=== PATIENT | female | born 1940 | race Caucasian/White ===

== ENCOUNTER → 2017-06-05 | Outpatient (CLI) | payer OTHER ==
--- NOTE | 2017-06-05 10:45 | DIAGNOSTIC IMAGING REPORT ---
L WRIST MIN 3 VIEWS ROUTINE, L HAND MIN 3 VIEWS HISTORY: 76 years-old Female LEFT HAND WRIST PAIN acute left hand and wrist pain without reported trauma COMPARISON: None available TECHNIQUE: 3 views of the left wrist and 3 views of the left hand FINDINGS: WRIST: Bones are osteopenic. Chondrocalcinosis is noted about the radiocarpal joint and also within the distribution of the TFCC. There is 3 mm negative ulnar variance. Subcortical cystic changes are noted throughout the proximal and distal carpal rows. Advanced triscaphe and first carpometacarpal osteoarthritis is noted. No acute fracture or dislocation identified. No definite erosive arthropathy. HAND: Prominent subcortical cystic changes are noted about the carpus. The bones are moderately demineralized. There is chondrocalcinosis about the carpus. Advanced triscaphe and first carpal metacarpal arthritis. Moderate interphalangeal osteoarthritis is also noted. No erosive arthropathy identified. Increased sclerosis of the distal phalanx third digit involving the medial tuft which is nonspecific. No acute fracture or dislocation. IMPRESSION: 1. No acute fracture or dislocation identified involving the left hand or wrist. 2. Advanced degenerative changes as above with multifocal subcortical cystic changes and chondrocalcinosis. No erosive arthropathy identified. CPPD arthropathy may be considered within the appropriate clinical setting. The above report was generated using voice recognition software. It may contain grammatical, syntax or spelling errors. Electronically signed by: Angel Blanchard M.D. 06/05/2017 10:43 AM Dictated Date/Time: 06/05/2017 10:38 AM
== END | disposition home or self-care (01) ==
LOC: C.RDSM 10:13
PROVIDERS: ATTEND Physician Assistant
DX: M25.532 Pain in left wrist (principal); M79.642 Pain in left hand

== ENCOUNTER → 2017-06-13 | Outpatient (CLI) | payer OTHER ==
--- NOTE | 2017-06-13 13:55 | DIAGNOSTIC IMAGING REPORT ---
L WRIST MIN 3 VIEWS ROUTINE HISTORY: 76 years-old Female F/U LEFT WRIST FX acute left wrist pain. COMPARISON: Left hand and wrist radiographs 06/05/2017 TECHNIQUE: 3 views of the left wrist FINDINGS: Bones are moderately demineralized. Chondrocalcinosis is noted about the radiocarpal joint and also within the distribution of the TFCC. There is 3 mm negative ulnar variance. Subcortical cystic changes are noted throughout the proximal and distal carpal rows. Advanced triscaphe and first carpometacarpal osteoarthritis is noted. No acute fracture or dislocation identified. No definite erosive arthropathy. Soft tissues are unremarkable. IMPRESSION: 1. No acute osseous abnormality. 2. Osteopenia with chondrocalcinosis and multifocal degenerative changes as above. The above report was generated using voice recognition software. It may contain grammatical, syntax or spelling errors. Electronically signed by: Angel Blanchard M.D. 06/13/2017 1:53 PM Dictated Date/Time: 06/13/2017 1:51 PM
== END | disposition home or self-care (01) ==
LOC: C.RDSM 14:00
PROVIDERS: ATTEND Physician Assistant
DX: Z09 Encounter for follow-up examination after completed treatment for conditions other than malignant neoplasm (principal); M85.832 Other specified disorders of bone density and structure, left forearm; M11.13 Familial chondrocalcinosis, wrist; Z87.81 Personal history of (healed) traumatic fracture

== ENCOUNTER → 2017-08-28 | Outpatient (CLI) | payer OTHER ==
[2017-08-28 10:55] LABS: BASO ABS # 0.08 K/uL (0-0.2); COMPLETE YES; EOS % 5.7 %; HEMATOCRIT 41.2 % (37-47); IG% 0.3 %; LYMPH % 29.9 %; LYMPH ABS # 2.35 K/uL (1.2-3.4); MEAN CELL VOLUME 90.9 fL (80-100); MEAN PLATELET VOLUME 9.4 fL (7.4-10.4); NEUT % 53.1 %; PLATELET COUNT 311 K/uL (130-400); RED BLOOD COUNT 4.53 M/uL (4.2-5.4); WHITE BLOOD COUNT 7.87 K/uL (4.8-10.8)
[2017-08-28 11:22] LABS: BLOOD UREA NITROGEN 23 mg/dl (7-18); BUN/CREATININE RATIO 27.9 (10-20); CALCIUM 9.3 mg/dl (8.5-10.1); CARBON DIOXIDE 30 mmol/L (21-32); CHLORIDE 102 mmol/L (98-107); CREATININE 0.82 mg/dl (0.60-1.20); GLUCOSE 123 mg/dl (70-99); POTASSIUM 4.1 mmol/L (3.5-5.1); SODIUM 137 mmol/L (136-145)
[2017-08-28 11:34] LABS: ALKALINE PHOSPHATASE 46 U/L (45-117); ALT/SGPT 20 U/L (12-78); AST/SGOT 13 U/L (15-37); CHOLESTEROL 128 mg/dl (0-200); HDL CHOLESTEROL 42 mg/dl; LDL CHOLESTEROL CALCULATED 46 mg/dl; TRIGLYCERIDES 200 mg/dl (0-150); VERY LOW DENSITY LIPOPROT CALC 40 mg/dl
[2017-08-29 08:28] LABS: ESTIMATED AVERAGE GLUCOSE 154 mg/dl; HA1C FLAG Normal (Normal)
== END | disposition home or self-care (01) ==
LOC: C.LAB1850 09:11
PROVIDERS: ATTEND Nurse Practitioner Adult Health
DX: E11.9 Type 2 diabetes mellitus without complications (principal); E78.5 Hyperlipidemia, unspecified; Z51.81 Encounter for therapeutic drug level monitoring; Z79.899 Other long term (current) drug therapy; R53.83 Other fatigue; M81.0 Age-related osteoporosis without current pathological fracture

== ENCOUNTER → 2017-10-06 | Outpatient (CLI) | payer OTHER ==
[~2017-10-06] MED LIST: ASPI81TA28 PO; CHOL1000 PO; CLR10 PO; CRS/10 PO; DIVA250T PO; FLUT0.15 INH; LATA0.5S OPB; LEVO88TA3 PO; MELA1TAB5 PO; METF1000 PO; MULT-506 PO; VENL75TA4 PO
--- NOTE | 2017-10-06 13:05 | DIAGNOSTIC IMAGING REPORT ---
THYROID ULTRASOUND HISTORY: E05.90 Hyperthyroidism Please schedule in September [id number] COMPARISON: None. FINDINGS: Right lobe: 3.3 x 0.9 x 0.9 cm. A few tiny cysts/nodules measuring up to 2 mm. Left lobe: 3.1 x 1.0 x 0.9 cm. A few tiny cysts/nodules measuring up to 2 mm. Isthmus: 2 mm in thickness. No nodules. IMPRESSION: A few tiny subcentimeter cysts/nodules. Otherwise, normal thyroid gland. Electronically signed by: Cristi Zhang M.D. 10/06/2017 1:04 PM Dictated Date/Time: 10/06/2017 1:02 PM
== END | disposition home or self-care (01) ==
LOC: C.ULTR 11:36
PROVIDERS: ATTEND Nurse Practitioner Adult Health
DX: E05.00 Thyrotoxicosis with diffuse goiter without thyrotoxic crisis or storm (principal)

== ENCOUNTER → 2017-10-06 | Outpatient (CLI) | payer OTHER | END | disposition home or self-care (01) | LOC: C.MAMM 13:55 | PROVIDERS: ATTEND Nurse Practitioner Adult Health | DX: M81.0 Age-related osteoporosis without current pathological fracture (principal) ==

== ENCOUNTER → 2017-10-14 | Day surgery (SDC) | payer OTHER ==
[2017-09-22 15:15] VITALS: Ht 160 cm; Wt 72.7 kg
[~2017-10-14] VITALS: Ht 160 cm; Wt 72.7 kg
[~2017-10-14] MED LIST changes: +500ML BSS 0.3ML EPI 1:1000PF IRRIG ONE; +AMVISC PLUS 0.8ML SYRINGE INT OCU ONE; +ATROPINE SULFATE 0.1 MG/ML 5ML SYR IV PRN; +BSS FLUSH ONE; +EpHEDrine SULFATE INJ 50 MG/ML AMP IV PRN; +EpINEphrine INJ 1MG/ML AMP 1 MG/ML AMP ONE; +LACTATED RINGER'S 1000ML 500 ML IV SCH; +LIDOCAINE 3.5% OPH GEL PER APPLICATION CHARGE ONE; +LIDOCAINE HCL 1% MPF 2 ML VIAL ONE; +MIDAZOLAM HCL 1 MG/ML 2ML VIAL ONE; +OCUCOAT 1 ML SOLN IO ONE; +POVIDONE-IODINE OP SOLN 30 ML BTL ONE; +PROPARACAINE 0.5% OP SOLN PER DROP CHARGE OPR SCH; +TOBRAMYCIN/DEXAMETHASONE OPH OINT PER APPLN CHARGE ONE
[2017-10-14] MEDS: PHENYLEPHRINE HCL 2.5% OP SOLN PER DROP CHARGE OPR SCH ×2 (06:42→06:47)
[2017-10-14] MEDS: TROPICAMIDE 1% OP SOLN PER DROP CHARGE OPR SCH ×2 (06:43→06:48)
[2017-10-14] MEDS: CYCLOPENTOLATE HCL 1% OP SOLN PER DROP CHARGE OPR SCH ×2 (06:44→06:49)
[2017-10-14] MEDS: KETOROLAC 0.5% OP SOLN PER DROP CHARGE OPR SCH ×2 (06:45→06:50)
[2017-10-14] MEDS: GATIFLOXACIN OP SOLN PER DROP CHARGE OPR SCH ×2 (06:46→06:56)
--- NOTE | 2017-10-14 06:59 | History & Physical Bridge - SC ---
H&P Re-Evaluation Bridge Note: I have examined the patient, reviewed the History & Physical and in the interval since the performance of the History & Physical I have noted the following changes of clinical significance: Diagnosis: Right Cataract Procedure: Right Cataract Removal with Lens Implant No changes noted
--- NOTE | 2017-10-14 07:22 | [facility] Operative Report ---
Operative Report Date of Service Oct 14, 2017. Operative Report 1. PREOPERATIVE DIAGNOSIS: Cataract of the right eye. 2. POSTOPERATIVE DIAGNOSIS: Same. 3. PROCEDURE: Phacoemulsification with intraocular lens implantation of the right eye. SURGEON: Dr. Sanford Kuo. ANESTHESIA: Topical Lidocaine gel, 1% Non- Preserved intracameral Lidocaine, and monitored intravenous sedation. INDICATIONS FOR THE PROCEDURE: The patient is a 77 - year-old female with a history of cataract of the right eye causing significant visual impairment. The details of the proposed procedure were explained to the patient who asked appropriate questions and following discussion of all risks, benefits and alternatives agreed to have the procedure done. 4. OPERATION AND FINDINGS: DESCRIPTION OF PROCEDURE: After informed consent was obtained, the patient was brought to the Operating Room at the [facility]. The patient was placed in a supine position and then the right eye was prepped and draped in the usual sterile fashion for intraocular surgery. A drop of topical Lidocaine gel was placed in the operative eye. A wire lid speculum was then placed in the fornices. A corneal paracentesis was then created temporally. The Non-Preserved Lidocaine was then instilled into the anterior chamber. The anterior chamber was then pressurized with viscoelastic. A 2.0 mm clear corneal incision was then created temporally. A cystotome was inserted into the anterior chamber and used to create a tear in the anterior lens capsule. This capsular tear was then used to create a small flap and the flap was dragged in a counterclockwise direction in order to create a continuous curvilinear capsulorrhexis. Hydrodissection was accomplished with balanced salt solution. Phacoemulsification of the lens nucleus was then performed in a standard [id number] technique. The phaco time was 31 seconds with an average power of 10%. The remaining cortical material was removed using irrigation aspiration. The capsular bag was then filled with viscoelastic. A [employer]ch [employer] Lomb MI60L +20.0 diopters lens was then loaded into the injector and injected into the capsular bag. The remaining viscoelastic was removed with the irrigation aspiration handpiece. The wound was hydrated and then checked and found to be watertight. The intraocular pressure was checked and found to be adequate. The wire lid speculum was removed and the patient's face was cleaned and dried. TobraDex ointment was placed in the inferior fornix. The patient was discharged to the Recovery Room having tolerated the procedure well. There were no complications. The patient will be seen tomorrow in the office for follow-up. I attest to the content of the Intraoperative Record and any orders documented therein. Any exceptions are noted below.
--- NOTE | 2017-10-14 07:23 | Discharge Instructions-SurgCtr ---
Discharge Instructions Date of Service Oct 14, 2017. Visit Reason for Visit: Cataract Right Eye Discharge Discharge Diagnosis / Problem: cataract Discharge Goals Goal(s): Improve function Medications Stopped Medications Name(s): metformin yesterday Activity Recommendations Activity Limitations: per Instructions/Follow-up section Anesthesia . Post Anesthesia Instructions: If you have had General Anesthesia or IV Sedation: * Do not drive today. * Resume driving when surgeon permits. * Do not make important decisions or sign legal documents today. * Call surgeon for: 1. Temperature elevations greater than 101 degrees F. 2. Uncontrollable pain. 3. Excessive bleeding. 4. Persistent nausea and vomiting. 5. Medication intolerance (nausea, vomiting or rash). * For nausea and vomiting use only clear liquids such as: tea, soda, bouillon until nausea subsides, then gradually increase diet as tolerated. * If you have any concerns or questions, call your surgeon's office. If physician is unavailable and it is an emergency, call 911 or go to the nearest emergency room. . Diet Recommendations Home Diet: resume previous diet Procedures Procedures Performed: Right Cataract Phacoemulsification With Intraocular Lens Implant Pending Studies Studies pending at discharge: no Medical Emergencies . Who to Call and When: Medical Emergencies: If at any time you feel your situation is an emergency, please call 911 immediately. . Non-Emergent Contact Non-Emergency issues call your: [employer] Tester . . "Provider Documentation" section prepared by Sanford Kuo. .
[2017-10-14 07:24] VITALS: TEMP 36.6
--- NOTE | 2017-10-14 07:50 | Anesthesia Progress Nt - [facility] ---
Anesthesia Post Op Note Date & Time Oct 14, 2017 at 07:50 Vital Signs Pain Intensity: 0 Vital Signs Past 12 Hours Date Time Temp Pulse Resp B/P (MAP) Pulse Ox O2 Delivery O2 Flow Rate FiO2 10/14/17 07:24 36.6 66 16 138/80 (99) 96 Room Air 10/14/17 06:30 36.2 65 22 107/74 (85) 96 Room Air Notes Mental Status: alert / awake / arousable, participated in evaluation Pt Amnestic to Procedure: Yes Nausea / Vomiting: adequately controlled Pain: adequately controlled Airway Patency, RR, SpO2: stable & adequate BP & HR: stable & adequate Hydration State: stable & adequate Anesthetic Complications: no major complications apparent
[2017-10-14 07:57] VITALS: BP 149/83; PULSE 66; O2SAT 97
== END | disposition home or self-care (01) ==
LOC: X.SURG 06:16
PROVIDERS: ATTEND Ophthalmology
DX: H26.9 Unspecified cataract (principal); E11.9 Type 2 diabetes mellitus without complications; E78.5 Hyperlipidemia, unspecified; E03.9 Hypothyroidism, unspecified; M19.90 Unspecified osteoarthritis, unspecified site; Z96.643 Presence of artificial hip joint, bilateral; Z96.611 Presence of right artificial shoulder joint; Z90.710 Acquired absence of both cervix and uterus; Z90.89 Acquired absence of other organs; Z90.49 Acquired absence of other specified parts of digestive tract; Z79.82 Long term (current) use of aspirin; Z87.891 Personal history of nicotine dependence; Z88.2 Allergy status to sulfonamides; Z88.0 Allergy status to penicillin; Z88.6 Allergy status to analgesic agent; Z88.8 Allergy status to other drugs, medicaments and biological substances

== ENCOUNTER → 2017-10-28 | Day surgery (SDC) | payer OTHER ==
[2017-10-21 08:37] VITALS: Ht 160 cm; Wt 72.7 kg
[~2017-10-28] VITALS: Ht 160 cm; Wt 72.7 kg
[~2017-10-28] MED LIST changes: +EXEN1INJ3 SC; +PROPARACAINE 0.5% OP SOLN PER DROP CHARGE OPL SCH; -PROPARACAINE 0.5% OP SOLN PER DROP CHARGE OPR SCH
[2017-10-28] MEDS: PHENYLEPHRINE HCL 2.5% OP SOLN PER DROP CHARGE OPL SCH ×2 (06:36→06:41)
[2017-10-28] MEDS: TROPICAMIDE 1% OP SOLN PER DROP CHARGE OPL SCH ×2 (06:37→06:42)
[2017-10-28] MEDS: CYCLOPENTOLATE HCL 1% OP SOLN PER DROP CHARGE OPL SCH ×2 (06:38→06:43)
[2017-10-28] MEDS: KETOROLAC 0.5% OP SOLN PER DROP CHARGE OPL SCH ×2 (06:39→06:44)
[2017-10-28] MEDS: GATIFLOXACIN OP SOLN PER DROP CHARGE OPL SCH ×2 (06:40→06:50)
--- NOTE | 2017-10-28 06:57 | History & Physical Bridge - SC ---
H&P Re-Evaluation Bridge Note: I have examined the patient, reviewed the History & Physical and in the interval since the performance of the History & Physical I have noted the following changes of clinical significance: Diagnosis: Left Cataract Procedure: Left Cataract Removal with Lens Implant No changes noted
--- NOTE | 2017-10-28 07:38 | [facility] Operative Report ---
Operative Report Date of Service Oct 28, 2017. Operative Report 1. PREOPERATIVE DIAGNOSIS: Cataract of the left eye. 2. POSTOPERATIVE DIAGNOSIS: Same. 3. PROCEDURE: Phacoemulsification with intraocular lens implantation of the left eye. SURGEON: Dr. Sanford Kuo. ANESTHESIA: Topical Lidocaine gel, 1% Non- Preserved intracameral Lidocaine, and monitored intravenous sedation. INDICATIONS FOR THE PROCEDURE: The patient is a 77 - year-old female with a history of cataract of the left eye causing significant visual impairment. The details of the proposed procedure were explained to the patient who asked appropriate questions and following discussion of all risks, benefits and alternatives agreed to have the procedure done. 4. OPERATION AND FINDINGS: DESCRIPTION OF PROCEDURE: After informed consent was obtained, the patient was brought to the Operating Room at the [facility]. The patient was placed in a supine position and then the left eye was prepped and draped in the usual sterile fashion for intraocular surgery. A drop of topical Lidocaine gel was placed in the operative eye. A wire lid speculum was then placed in the fornices. A corneal paracentesis was then created temporally. The Non-Preserved Lidocaine was then instilled into the anterior chamber. The anterior chamber was then pressurized with viscoelastic. A 2.0 mm clear corneal incision was then created temporally. A cystotome was inserted into the anterior chamber and used to create a tear in the anterior lens capsule. This capsular tear was then used to create a small flap and the flap was dragged in a counterclockwise direction in order to create a continuous curvilinear capsulorrhexis. Hydrodissection was accomplished with balanced salt solution. Phacoemulsification of the lens nucleus was then performed in a standard ddkxtr-[id number]-whmbhrp technique. The phaco time was 11 seconds with an average power of 18 %. The remaining cortical material was removed using irrigation aspiration. The capsular bag was then filled with viscoelastic. A Bausch [employer] Lomb MI60L +20.0 diopters lens was then loaded into the injector and injected into the capsular bag. The remaining viscoelastic was removed with the irrigation aspiration handpiece. The wound was hydrated and then checked and found to be watertight. The intraocular pressure was checked and found to be adequate. The wire lid speculum was removed and the patient's face was cleaned and dried. TobraDex ointment was placed in the inferior fornix. The patient was discharged to the Recovery Room having tolerated the procedure well. There were no complications. The patient will be seen tomorrow in the office for follow-up. I attest to the content of the Intraoperative Record and any orders documented therein. Any exceptions are noted below.
--- NOTE | 2017-10-28 07:39 | Discharge Instructions-SurgCtr ---
Discharge Instructions Date of Service Oct 28, 2017. Visit Reason for Visit: Left Cataract Discharge Discharge Diagnosis / Problem: cataract Discharge Goals Goal(s): Improve function Medications Stopped Medications Name(s): Aspirin stopped 10-26-17 and metformin half dose taken 10-27-17 Activity Recommendations Activity Limitations: per Instructions/Follow-up section Anesthesia . Post Anesthesia Instructions: If you have had General Anesthesia or IV Sedation: * Do not drive today. * Resume driving when surgeon permits. * Do not make important decisions or sign legal documents today. * Call surgeon for: 1. Temperature elevations greater than 101 degrees F. 2. Uncontrollable pain. 3. Excessive bleeding. 4. Persistent nausea and vomiting. 5. Medication intolerance (nausea, vomiting or rash). * For nausea and vomiting use only clear liquids such as: tea, soda, bouillon until nausea subsides, then gradually increase diet as tolerated. * If you have any concerns or questions, call your surgeon's office. If physician is unavailable and it is an emergency, call 911 or go to the nearest emergency room. . Diet Recommendations Home Diet: resume previous diet Procedures Procedures Performed: Left Cataract Phacoemulsification With Intraocular Lens Implant Pending Studies Studies pending at discharge: no Medical Emergencies . Who to Call and When: Medical Emergencies: If at any time you feel your situation is an emergency, please call 911 immediately. . Non-Emergent Contact Non-Emergency issues call your: [employer] Consultant . . "Provider Documentation" section prepared by Sanford Kuo. .
[2017-10-28 08:13] VITALS: BP 164/88; PULSE 71; TEMP 36.4; O2SAT 99
--- NOTE | 2017-10-28 08:27 | Anesthesia Progress Nt - [facility] ---
Anesthesia Post Op Note Date & Time Oct 28, 2017 at 08:27 Vital Signs Pain Intensity: 0 Vital Signs Past 12 Hours Date Time Temp Pulse Resp B/P (MAP) Pulse Ox O2 Delivery O2 Flow Rate FiO2 10/28/17 08:13 36.4 71 16 164/88 (113) 99 Room Air 10/28/17 07:41 36.1 67 16 156/84 (108) 96 Room Air 10/28/17 06:32 36.6 69 16 130/70 (90) 97 Room Air Notes Mental Status: alert / awake / arousable, participated in evaluation Pt Amnestic to Procedure: Yes Nausea / Vomiting: adequately controlled Pain: adequately controlled Airway Patency, RR, SpO2: stable & adequate BP & HR: stable & adequate Hydration State: stable & adequate Anesthetic Complications: no major complications apparent
== END | disposition home or self-care (01) ==
LOC: X.SURG 06:15
PROVIDERS: ATTEND Ophthalmology
DX: H26.9 Unspecified cataract (principal); Z88.8 Allergy status to other drugs, medicaments and biological substances; Z88.0 Allergy status to penicillin; Z88.2 Allergy status to sulfonamides; Z88.6 Allergy status to analgesic agent

== ENCOUNTER → 2017-11-11 | Outpatient (CLI) | payer OTHER ==
[~2017-11-11] MED LIST changes: -500ML BSS 0.3ML EPI 1:1000PF IRRIG ONE; -AMVISC PLUS 0.8ML SYRINGE INT OCU ONE; -ATROPINE SULFATE 0.1 MG/ML 5ML SYR IV PRN; -BSS FLUSH ONE; -EpHEDrine SULFATE INJ 50 MG/ML AMP IV PRN; -EpINEphrine INJ 1MG/ML AMP 1 MG/ML AMP ONE; -LACTATED RINGER'S 1000ML 500 ML IV SCH; -LIDOCAINE 3.5% OPH GEL PER APPLICATION CHARGE ONE; -LIDOCAINE HCL 1% MPF 2 ML VIAL ONE; -MIDAZOLAM HCL 1 MG/ML 2ML VIAL ONE; -OCUCOAT 1 ML SOLN IO ONE; -POVIDONE-IODINE OP SOLN 30 ML BTL ONE; -PROPARACAINE 0.5% OP SOLN PER DROP CHARGE OPL SCH; -TOBRAMYCIN/DEXAMETHASONE OPH OINT PER APPLN CHARGE ONE
--- NOTE | 2017-11-11 08:31 | DIAGNOSTIC IMAGING REPORT ---
LEFT KNEE INCLUDING BILATERAL STANDING AP VIEWS (4 VIEWS) CLINICAL HISTORY: LEFT KNEE PAIN COMPARISON: None. DISCUSSION: The bilateral standing AP views reveal right-sided chondrocalcinosis and moderate right-sided medial joint compartment narrowing. Mild left-sided medial joint compartment narrowing. There are advanced degenerative changes within the patellofemoral joint. There is mild lateral patellar translation and marked narrowing of the lateral patellofemoral joint compartment. No acute fractures are visualized. IMPRESSION: 1. No acute fractures 2. Advanced degenerative changes within the patellofemoral joint. Electronically signed by: Daniel Abebe M.D. 11/11/2017 8:30 AM Dictated Date/Time: 11/11/2017 8:28 AM
== END | disposition home or self-care (01) ==
LOC: C.RDSM 09:04
PROVIDERS: ATTEND Physician Assistant
DX: M25.562 Pain in left knee (principal)

== ENCOUNTER → 2017-12-01 | Outpatient (CLI) | payer OTHER ==
[2017-12-01 17:00] LABS: CREATININE RANDOM URINE 94.3 mg/dl
[2017-12-02 06:36] LABS: HEMOGLOBIN A1C 8.6 % (4.5-5.6)
== END | disposition home or self-care (01) ==
LOC: C.LAB1850 15:38
PROVIDERS: ATTEND Nurse Practitioner Family
DX: E11.9 Type 2 diabetes mellitus without complications (principal)

== ENCOUNTER → 2018-03-26 | Outpatient (CLI) | payer OTHER ==
[~2018-03-26] MED LIST changes: +ACET650T49 PO; +DIVA-36 PO; -DIVA250T PO; +INSDGIPEN SQ; +RXC5 PO; +TRAM-10 PO; +VENL75CA94 PO; -VENL75TA4 PO; +WARF2TAB PO
[2018-03-26 14:48] LABS: INR 1.3 (0.9-1.1)
== END | disposition home or self-care (01) ==
LOC: C.LAB1850 13:19
PROVIDERS: ATTEND Nurse Practitioner Adult Health
DX: Z96.659 Presence of unspecified artificial knee joint (principal)

== ENCOUNTER → 2018-04-20 | Outpatient (CLI) | payer OTHER ==
[~2018-04-20] MED LIST changes: +VENL75CA88 PO; -VENL75CA94 PO
== END | disposition home or self-care (01) ==
LOC: C.RDSM 14:30
PROVIDERS: ATTEND Physical Medicine & Rehabilitation Sports Medicine
DX: M17.12 Unilateral primary osteoarthritis, left knee (principal)

== ENCOUNTER 2019-11-02 11:37 | Observation (INO) ==
--- NOTE | 2019-11-02 12:21 | XRay Report ---
XR chest 1V portable CLINICAL HISTORY: Dyspnea dyspnea COMPARISON STUDY: No previous studies for comparison. FINDINGS: The bones soft tissues and hemidiaphragms are normal. The cardiomediastinal silhouette is n ormal. The lungs are clear. The pulmonary vasculature is normal. Right shoulder arthroplasty in good position. Significant degenerative change left shoulder. IMPRESSION: No acute process. ACT 112: Negative or not required by law. The above report was generated using voice recognition software. It may contain grammatical, syntax or spelling errors. Electronically signed by: Randy Brown M.D. 11/02/2019 12:20 PM
[2019-11-02 12:35] LABS: Basophils # (auto) 0.09 K/uL (0-0.2); Basophils % (auto) 0.7 %; Eosinophils # (auto) 0.71 K/uL (0-0.5); Eosinophils % (auto) 5.4 %; Hematocrit (blood only) 36.7 % (37-47); Hemoglobin 12.3 g/dL (12.0-16.0); Immature Granulocytes # (auto) 0.03 K/uL (0.00-0.02); Immature Granulocytes % (auto) 0.2 %; Lymphocytes # (auto) 2.78 K/uL (1.2-3.4); Lymphocytes % (auto) 21.2 %; Mean Corpuscular Hemoglobin 30.1 pg (25-34); Mean Corpuscular Hgb Conc 33.5 g/dL (32-36); Mean Platelet Volume 8.9 fL (7.4-10.4); Monocytes # (auto) 0.84 K/uL (0.11-0.59); Monocytes % (auto) 6.4 %; Neutrophils # (auto) 8.69 K/uL (1.4-6.5); Neutrophils % (auto) 66.1 %; Platelet Count 325 K/uL (130-400); RDW Coefficient of Variation 14.8 % (11.5-14.5); RDW Standard Deviation 48.4 fL (36.4-46.3); Red Blood Count 4.08 M/uL (4.2-5.4); White Blood Count 13.14 K/uL (4.8-10.8)
[2019-11-02 12:45] LABS: Partial Thromboplastin Ratio 0.9; Partial Thromboplastin Time 23.6 Seconds (21.0-31.0); Prothrombin Time 9.9 Seconds (9.0-12.0)
[2019-11-02 12:58] LABS: Alanine Aminotransferase 27 U/L (12-78); Albumin Level 3.5 gm/dl (3.4-5.0); Aspartate Aminotransferase 16 U/L (15-37); BUN Creatinine Ratio 27.3 (10-20); Blood Urea Nitrogen 59 mg/dl (7-18); Carbon Dioxide 27 mmol/L (21-32); Chloride 106 mmol/L (98-107); Creatinine Clr Calc Pharmacy 22.1 ml/min; Est GFR (African American) 24.8; Est GFR (Non-African American) 21.4; Glucose 125 mg/dl (70-99); Sodium 137 mmol/L (136-145)
[2019-11-02 13:03] LABS: Albumin Globulin Ratio 0.9 (0.9-2); Alkaline Phosphatase 64 U/L (45-117); Bilirubin,Total 0.3 mg/dl (0.2-1); Globulin 3.9 gm/dl (2.5-4.0); NT Pro B Type Natriuretic Pept 134 pg/ml (0-1800); Total Protein 7.4 gm/dl (6.4-8.2); Troponin I < 0.015 ng/ml (0-0.045)
[2019-11-02 13:47] LABS: Appearance Urine Clear (Clear); Bilirubin Urine Negative (Negative); Blood Urine Negative (Negative); Color Urine Yellow; Glucose Urine UA Negative (Negative); Ketones Urine Negative (Negative); Leukocyte Esterase Urine Negative (Negative); Nitrite Urine Negative (Negative); Protein Urine Negative (Negative); Specific Gravity Urine 1.012 (1.000-1.030); Urobilinogen Urine Negative (Negative)
--- NOTE | 2019-11-02 13:55 | Emergency Department Note ---
Entered by Earnest Hager acting as a scribe for Robin Scott DO History of Present Illness General Chief complaint: Shortness of Breath/Dyspnea Stated complaint: EXTREME SOB,CHEST PAIN Time Seen by Provider: 11/02/19 11:50 Source: patient History of Present Illness Onset (ago): day(s) (4-5 days ago) Location: chest Pain Consistency: + other (worsening) Maximum Pain Intensity: 0 Quality: + other (SOB) Associated symptoms: + other (Positive for congestion, a dry cough, leg swelligng, and back pain. Negative for CP.) The patient is a 79 year old female who presents to the emergency department with complaints of worsening SOB beginning 4-5 days ago. The patient states that she was told three weeks ago that she had stage 3 renal failure. She notes that she has been having worsening SOB for the last 4-5 days. She reports that she went to the [facility] today but was referred to the emergency department for her worsening SOB and possible CHF. She also complains of congestion, a dry cough, leg swelling, and back pain. The patient states that she is anxious. She denies any CP. She notes that she has a history of diabetes. Home Medications Home Medications Medication Instructions Recorded Confirmed Type acetaminophen [Tylenol Arthritis 650 mg PO Q12H PRN 12/21/18 11/02/19 History Pain] aspirin [Aspir-81] 81 mg PO QAM 12/21/18 11/02/19 History multivitamin 1 cap PO QAM 12/21/18 11/02/19 History venlafaxine 75 mg tablet 225 mg PO DAILY tab 06/10/19 11/02/19 History escitalopram oxalate 20 mg tablet 10 mg PO HS #90 tab 07/20/19 11/02/19 Rx blood sugar diagnostic #250 ea 07/26/19 Rx blood sugar diagnostic #250 ea 07/26/19 Rx blood-glucose sensor #4 ea 08/03/19 Rx blood-glucose transmitter #1 ea 08/03/19 Rx pen needle, diabetic 32 gauge x #90 ea 08/03/19 Rx 5/32" rosuvastatin 10 mg tablet 10 mg PO HS #90 tab 08/03/19 11/02/19 Rx fluticasone propionate 50 2 spray INTRANASAL DAILY PRN #36.4 09/27/19 11/02/19 Rx mcg/actuation nasal ml spray,suspension cholecalciferol (vitamin D3) 1,000 unit PO QAM 11/02/19 11/02/19 History [Vitamin D3] insulin glargine [Lantus Solostar 18 units SQ HS 11/02/19 11/02/19 History U-100 Insulin] insulin lispro [Humalog KwikPen 25 units SUBCUT DAILY 11/02/19 11/02/19 History Insulin] levothyroxine 88 mcg PO QAM 11/02/19 11/02/19 History loratadine 10 mg PO QAM PRN 11/02/19 11/02/19 History Allergies Allergy/AdvReac Type Severity Reaction Status Date / Time exenatide Allergy Unknown GI UPSET Verified 11/02/19 12:56 ibuprofen Allergy Unknown GI UPSET Verified 11/02/19 12:56 mirtazapine Allergy Unknown MOUTH/FACIAL Verified 11/02/19 12:56 SWELLING oxycodone Allergy Unknown GI UPSET Verified 11/02/19 12:56 AND IRRITATION Penicillins Allergy Unknown WELTS Verified 11/02/19 12:56 phenol Allergy Unknown GI UPSET Verified 11/02/19 12:56 Sulfa (Sulfonamide Allergy Unknown PT DOESN'T Verified 11/02/19 12:56 Antibiotics) REMEMBER REACTION - MOTHER TOLD PT Past Med/Surg History Medical History (Updated 11/02/19 @ 14:42 by Earnest Hager) Anxiety Depression Diabetes mellitus, type 2 History of diabetic neuropathy B/L LEGS AND FEET. Hypothyroidism Stage 3 chronic kidney disease Surgical History History of adenoidectomy History of appendectomy History of bunionectomy 2+ SURGERIES History of cataract surgery History of cholecystectomy History of colonoscopy History of hysterectomy 1976. TOTAL HYSTER FOR DYSPLASIA History of tonsillectomy B/L History of total hip arthroplasty B/L History of total knee replacement History of total shoulder replacement RIGHT Social History Preferred Language: Sinhala Communication Ability: Effective Attraction Worker Required: No Beliefs That Will Affect Care: None Current Living Situation: Alone Other Information That Helps Us Care for You: No Feels Safe at Home: Yes Safety Concerns: Feels Safe At This Time Smoking Status: Former smoker Tobacco Type: cigarettes ; Cigarettes Per Day: QUIT IN 1979 ; Smoking End Date: 40 years ago ; Second Hand Exposure: No ; Hx Alcohol Use: Yes (AA for 30 years) Hx Substance Use: No Review of Systems See HPI for pertinent positives & negatives. and A total of 10 systems reviewed and were otherwise negative Physical Exam Vital Signs Vital Signs - 24 hr 11/02/19 11:38 11/02/19 12:14 11/02/19 12:20 Temperature 36.9 C Temperature Source Oral Pulse Rate 90 83 Pulse Rate [Left] Pulse Rate from SpO2 Sensor Respiratory Rate 16 20 Respiratory Effort / Characteristics Non-Labored Spontaneous Short of Breath SOB on Exertion Respiratory Depth Normal Blood Pressure 152/80 H Blood Pressure [Left Arm] Blood Pressure Mean 104 Blood Pressure Mean [Left Arm] Blood Pressure Position Sitting Blood Pressure Position [Left Arm] Pulse Oximetry 99 100 Oxygen Delivery Method Room Air Room Air Room Air Sepsis Recent Fever Within 48 Hours No Sepsis New/Unexplained Change in Mental Status No Sepsis Action Taken by Nursing No Action Required 11/02/19 12:25 11/02/19 12:30 11/02/19 12:40 Temperature Temperature Source Pulse Rate 80 80 79 Pulse Rate [Left] Pulse Rate from SpO2 Sensor 82 80 79 Respiratory Rate 22 21 26 H Respiratory Effort / Characteristics Respiratory Depth Blood Pressure Blood Pressure [Left Arm] Blood Pressure Mean Blood Pressure Mean [Left Arm] Blood Pressure Position Blood Pressure Position [Left Arm] Pulse Oximetry 94 94 95 Oxygen Delivery Method Sepsis Recent Fever Within 48 Hours Sepsis New/Unexplained Change in Mental Status Sepsis Action Taken by Nursing 11/02/19 12:50 11/02/19 12:52 11/02/19 12:53 Temperature Temperature Source Pulse Rate 83 78 Pulse Rate [Left] 80 Pulse Rate from SpO2 Sensor 82 80 Respiratory Rate 15 18 19 Respiratory Effort / Characteristics Non-Labored Spontaneous Respiratory Depth Blood Pressure 152/87 H Blood Pressure [Left Arm] 152/87 H Blood Pressure Mean 103 Blood Pressure Mean [Left Arm] 108 Blood Pressure Position Blood Pressure Position [Left Arm] Lying Pulse Oximetry 97 94 96 Oxygen Delivery Method Room Air Sepsis Recent Fever Within 48 Hours Sepsis New/Unexplained Change in Mental Status Sepsis Action Taken by Nursing 11/02/19 13:00 11/02/19 13:10 11/02/19 13:20 Temperature Temperature Source Pulse Rate 81 81 75 Pulse Rate [Left] Pulse Rate from SpO2 Sensor 80 82 75 Respiratory Rate 22 18 20 Respiratory Effort / Characteristics Respiratory Depth Blood Pressure Blood Pressure [Left Arm] Blood Pressure Mean Blood Pressure Mean [Left Arm] Blood Pressure Position Blood Pressure Position [Left Arm] Pulse Oximetry 96 96 96 Oxygen Delivery Method Sepsis Recent Fever Within 48 Hours Sepsis New/Unexplained Change in Mental Status Sepsis Action Taken by Nursing 11/02/19 13:30 11/02/19 13:40 11/02/19 13:50 Temperature Temperature Source Pulse Rate 89 77 79 Pulse Rate [Left] Pulse Rate from SpO2 Sensor 77 78 Respiratory Rate 16 21 23 Respiratory Effort / Characteristics Respiratory Depth Blood Pressure Blood Pressure [Left Arm] Blood Pressure Mean Blood Pressure Mean [Left Arm] Blood Pressure Position Blood Pressure Position [Left Arm] Pulse Oximetry 97 97 Oxygen Delivery Method Sepsis Recent Fever Within 48 Hours Sepsis New/Unexplained Change in Mental Status Sepsis Action Taken by Nursing 11/02/19 13:58 11/02/19 14:40 Temperature Temperature Source Pulse Rate 85 Pulse Rate [Left] 87 Pulse Rate from SpO2 Sensor 83 Respiratory Rate 19 20 Respiratory Effort / Characteristics Non-Labored Spontaneous Respiratory Depth Normal Blood Pressure 189/95 H Blood Pressure [Left Arm] 189/95 H Blood Pressure Mean 107 Blood Pressure Mean [Left Arm] 126 Blood Pressure Position Blood Pressure Position [Left Arm] Lying Pulse Oximetry 98 97 Oxygen Delivery Method Room Air Sepsis Recent Fever Within 48 Hours Sepsis New/Unexplained Change in Mental Status Sepsis Action Taken by Nursing GENERAL: Patient is awake, alert, and in no acute distress.Patient is resting comfortably and showing no signs of anxiety EYES: The conjunctivae are clear. The pupils are round and reactive. EARS, NOSE, MOUTH AND THROAT: The nose is without any evidence of any deformity. Mucous membranes are moist.Tongue is midline NECK: The neck is nontender and supple. RESPIRATORY: Normal respiratory effort is noted. There is no evidence of wheezing rhonchi or rales to auscultation. CARDIOVASCULAR: Regular rate and rhythm noted. There no murmurs rubs or gallops normal S1 normal S2 GASTROINTESTINAL: The abdomen is soft. Bowel sounds are present in all quadrants. Abdomen is nontender. MUSCULOSKELETAL/EXTREMITIES: There is no evidence of gross deformity. Full range of motion is noted in the hips and shoulders. SKIN: There is no obvious evidence of any rash. There are no petechiae, pallor or cyanosis noted. NEUROLOGIC: Patient is awake alert and oriented x3. Strength is symmetric. Patellar reflexes are 2+ bilaterally. Course Course 1153: The patient was evaluated in room B10. A complete history and physical exam was performed. 1328: I reevaluated and updated the patient. 1433: Upon reevaluation, the patient is stable. I discussed the findings and the treatment plan with the patient. She expresses agreement and understanding. I spoke with Dr. Del Valle of the [facility] [place]. The patient will be evaluated for further management. Consultations Consultation #1: I reviewed the patient's case with Dr. Del Valle - Hospitalist, [facility] [place]. The patient will evaluate the patient for further management. Time: 14:33 Administered Medications Sodium Chloride (Nss 1000ml) 1,000 mls @ 100 mls/hr IV .Q10H JAYESH Stop: 12/02/19 17:08 Last Admin: 11/02/19 18:11 Dose: 100 mls/hr Documented by: [id number] Insulin Aspart (Novolog Flexpen) 0 units SC ACHS JAYESH Stop: 12/02/19 17:08 Last Admin: 11/02/19 18:10 Dose: 8 units Documented by: [id number] Cosigned by: [id number] Medical Decision Making Differential Diagnosis Differential diagnoses includes but is not limited to pneumonia, bronchitis, COPD/Asthma exacerbation, pneumothorax, pulmonary embolism, congestive heart failure, acute coronary syndrome. Medical Records Attestation: I reviewed the patient's medical records. Home Medications Current Medication List: was personally reviewed by me Laboratory Data Attestation: I reviewed the patient's lab results. Result diagrams: 11/02/19 12:26 11/02/19 12: Lab Results 11/02/19 11/02/19 11/02/19 Range/Units 12:26 12: 12: WBC 13.14 H (4.8-10.8) K/uL RBC 4.08 L (4.2-5.4) M/uL Hgb 12.3 (12.0-16.0) g/dL Hct 36.7 L (37-47) % MCV 90.0 (80-100) fL MCH 30.1 (25-34) pg MCHC 33.5 (32-36) g/dL RDW Std Deviation 48.4 H (36.4-46.3) fL RDW Coeff of Iban 14.8 H (11.5-14.5) % Plt Count 325 (130-400) K/uL MPV 8.9 (7.4-10.4) fL Immature Gran % (Auto) 0.2 % Neut % (Auto) 66.1 % Lymph % (Auto) 21.2 % Ralls % (Auto) 6.4 % Eos % (Auto) 5.4 % Baso % (Auto) 0.7 % Immature Gran # (Auto) 0.03 H (0.00-0.02) K/uL Neut # (Auto) 8.69 H (1.4-6.5) K/uL Lymph # (Auto) 2.78 (1.2-3.4) K/uL Ralls # (Auto) 0.84 H (0.11-0.59) K/uL Eos # (Auto) 0.71 H (0-0.5) K/uL Baso # (Auto) 0.09 (0-0.2) K/uL PT 9.9 (9.0-12.0) Seconds INR 1.0 (0.9-1.1) APTT 23.6 (21.0-31.0) Seconds PTT Ratio 0.9 Sodium 137 (136-145) mmol/L Potassium 4.0 (3.5-5.1) mmol/L Chloride 106 (98-107) mmol/L Carbon Dioxide 27 (21-32) mmol/L Anion Gap 4.0 (3-11) BUN 59 H (7-18) mg/dl Creatinine 2.16 H (0.6-1.2) mg/dl Est Cr Clr Drug Dosing 22.1 ml/min Est GFR ( Amer) 24.8 Est GFR (Non-Af Amer) 21.4 BUN/Creatinine Ratio 27.3 H (10-20) Glucose 125 H (70-99) mg/dl POC Glucose (70-99) mg/dl Calcium 9.0 (8.5-10.1) mg/dl Total Bilirubin 0.3 (0.2-1) mg/dl AST 16 (15-37) U/L ALT 27 (12-78) U/L Alkaline Phosphatase 64 (45-117) U/L Troponin I < 0.015 (0-0.045) ng/ml NT-Pro-B Natriuret Pep 134 (0-1800) pg/ml Total Protein 7.4 (6.4-8.2) gm/dl Albumin 3.5 (3.4-5.0) gm/dl Globulin 3.9 (2.5-4.0) gm/dl Albumin/Globulin Ratio 0.9 (0.9-2) Urine Color Urine Appearance (Clear) Urine pH (4.5-7.5) Ur Specific [place] (1.000-1.030) Urine Protein (Negative) Urine Glucose (UA) (Negative) Urine Ketones (Negative) Urine Blood (Negative) Urine Nitrite (Negative) Urine Bilirubin (Negative) Urine Urobilinogen (Negative) Ur Leukocyte Esterase (Negative) 11/02/19 11/02/19 Range/Units 12:48 13:25 WBC (4.8-10.8) K/uL RBC (4.2-5.4) M/uL Hgb (12.0-16.0) g/dL Hct (37-47) % MCV (80-100) fL MCH (25-34) pg MCHC (32-36) g/dL RDW Std Deviation (36.4-46.3) fL RDW Coeff of Iban (11.5-14.5) % Plt Count (130-400) K/uL MPV (7.4-10.4) fL Immature Gran % (Auto) % Neut % (Auto) % Lymph % (Auto) % Ralls % (Auto) % Eos % (Auto) % Baso % (Auto) % Immature Gran # (Auto) (0.00-0.02) K/uL Neut # (Auto) (1.4-6.5) K/uL Lymph # (Auto) (1.2-3.4) K/uL Ralls # (Auto) (0.11-0.59) K/uL Eos # (Auto) (0-0.5) K/uL Baso # (Auto) (0-0.2) K/uL PT (9.0-12.0) Seconds INR (0.9-1.1) APTT (21.0-31.0) Seconds PTT Ratio Sodium (136-145) mmol/L Potassium (3.5-5.1) mmol/L Chloride (98-107) mmol/L Carbon Dioxide (21-32) mmol/L Anion Gap (3-11) BUN (7-18) mg/dl Creatinine (0.6-1.2) mg/dl Est Cr Clr Drug Dosing ml/min Est GFR ( Amer) Est GFR (Non-Af Amer) BUN/Creatinine Ratio (10-20) Glucose (70-99) mg/dl POC Glucose 113 H (70-99) mg/dl Calcium (8.5-10.1) mg/dl Total Bilirubin (0.2-1) mg/dl AST (15-37) U/L ALT (12-78) U/L Alkaline Phosphatase (45-117) U/L Troponin I (0-0.045) ng/ml NT-Pro-B Natriuret Pep (0-1800) pg/ml Total Protein (6.4-8.2) gm/dl Albumin (3.4-5.0) gm/dl Globulin (2.5-4.0) gm/dl Albumin/Globulin Ratio (0.9-2) Urine Color Yellow Urine Appearance Clear (Clear) Urine pH 5.0 (4.5-7.5) Ur Specific [place] 1.012 (1.000-1.030) Urine Protein Negative (Negative) Urine Glucose (UA) Negative (Negative) Urine Ketones Negative (Negative) Urine Blood Negative (Negative) Urine Nitrite Negative (Negative) Urine Bilirubin Negative (Negative) Urine Urobilinogen Negative (Negative) Ur Leukocyte Esterase Negative (Negative) Imaging Data Radiologist's Impression: Radiology results as stated below per my review and the radiologist's interpretation: XR chest 1V portable FINDINGS: The bones soft tissues and hemidiaphragms are normal. The cardiomediastinal silhouette is normal. The lungs are clear. The pulmonary vasculature is normal. Right shoulder arthroplasty in good position. Significant degenerative change left shoulder. IMPRESSION: No acute process. ACT 112: Negative or not required by law. The above report was generated using voice recognition software. It may contain grammatical, syntax or spelling errors. Electronically signed by: Randy Borwn M.D. 11/02/2019 12:20 PM ECG Data Attestation: I personally reviewed and interpreted this ECG as follows: Indication: + SOB/dyspnea Rate (beats per minute): 84 Rhythm: + normal sinus ECG Findings: no PACs and no PVCs Comparison ECG Date: from (12/18/18) Change: no significant change Additional Comments: No acute ST segments. LVH noted by voltage criteria. Blood Pressure Blood Pressure Findings: Elevated blood pressure Blood Pressure Disposition: further management by hospitalist ANASTASIIA Goff An order was placed for continuous cardiac monitoring. The monitor shows a rate of [] with [] rhythm. The patient is a 79-year-old female who presented to the emergency department for an evaluation of shortness of breath. The patient was seen by her primary care physician at the [facility] today and sent to the emergency department for further evaluation. The patient was complaining of difficulty breathing especially with exertion. Her symptoms were exertional in nature. I was concerned this could represent an anginal equivalent. She was told that she may have had a heart attack at one time but has no recollection of having chest pain or exertional symptoms other than recently with shortness of breath. The patient was found have an elevation in her creatinine compared to baseline. She was seen by a coil inspector recently but told her creatinine was normal. I discussed the patient's laboratory and radiographic studies with her. I discussed the limitations of the emergency department work-up for chest pain with her. At this time I do feel that she may require further inpatient management with either stress testing or echocardiogram to further evaluate the cause of her symptoms. I discussed her case with the on-call [facility] hospitalist. They have agreed to evaluate the patient in the emergency department for further management and disposition. Impression & Plan SOB (shortness of breath), Acute kidney injury Discharge Plan Visit Data *Final* Discharge Date/Time: 11/02/19 16:47 Chief Complaint: Shortness of Breath/Dyspnea Stated Complaint: EXTREME SOB,CHEST PAIN ED Provider: Robin Scott Discharge Problem: SOB (shortness of breath), Acute kidney injury Patient Disposition: Admitted As Inpatient Discharge Instructions Interventions: ED Discharge Assessment Last Done: 11/02/19 16:47 The scribe's documentation has been prepared under my direction and personally reviewed by me in its entirety. I confirm that the note above accurately reflects all work, treatment, procedures, and medical decision making performed by me.
--- NOTE | 2019-11-02 15:03 | Electrocardiogram Report ---
Test Reason : Blood Pressure : / mmHG Vent. Rate : 084 BPM Atrial Rate : 084 BPM P-R Int : 154 ms QRS Dur : 080 ms QT Int : 366 ms P-R-T Axes : 023 -31 017 degrees QTc Int : 432 ms Normal sinus rhythm Left axis deviation Moderate voltage criteria for LVH, may be normal variant Poor R wave progression, consider anterior [place] vs. lead placement vs. LVH Abnormal ECG When compared with ECG of 18-DEC-2018 10:39, Borderline criteria for Inferior infarct are no longer Present Confirmed by Raul Win ([id number]) on 11/02/2019 3:03:21 PM Referred By: Confirmed By:Iker Win
--- NOTE | 2019-11-02 15:27 | History & Physical Report ---
Date of Service November 02, 2019 Assessment & Plan (1) SOB (shortness of breath): Unclear what is causing patient's shortness of breath. As noted, this seems to be more dyspnea on exertion the patient is satting well and is comfortable on room air at rest. Does not appear to be fluid overloaded. Will check 2D echo. Patient tells me she recently had ultrasound of the kidneys and will need to get those results. As noted, patient is not on an LOGAN or an ARB nor she is on any diuretics. Will ask nephrology here to evaluate for further recommendations. Consider ambulatory O2 saturation. If no acute cause is revealed, I would consider referring patient to pulmonology for outpatient PFTs. (2) Acute kidney injury: As noted above. Will gently hydrate and monitor renal function. Review ultrasound of the kidneys. S nephrology further recommendations. (3) Diabetes mellitus, type 2: Blood sugars appear controlled. I will continue medications as before. Check hemoglobin A1c. History of Present Illness Primary Care Provider: ZECHARIAH Tanner This is a 79-year-old female with past medical history of type 2 diabetes mellitus presents today complaining of acute shortness of breath. Patient is a somewhat difficult story and as she does divert from the topic occasionally. Patient apparently was started on insulin 18 months ago which she feels has been a "shock to her system ". She has not felt right since then. More recently, over the past 3-4 days, she has had worsening shortness of breath. This seems to be more dyspnea on exertion as she feels her exercise tolerance is not what it had been before. On further questioning, I find that the patient saw a glaze carrier (Meghan) in [place] for acute renal failure. Then she was told that she is in stage III renal failure and there was a question of previous IN. Patient had been sent for an echo but has not yet had this completed. Patient was seen earlier at the [facility] which she maintains her medical care is a . She told them about her worsening dyspnea on exertion and was told present to the emergency room for further evaluation. At the time my evaluation, patient was satting 97% on room air. She was hypertensive at 189/95. She did not appear to be in any significant distress. Of note, her creatinine was 2.16 with a BUN of 59. Back in June 2019 her BUN was 26 with creatinine 0.93. I did look back at her records and it appears there was instructions to start lisinopril 20 mg back in June 2019 but the patient tells me that she did not take the medication and does not appear on any of her patient medication list. Allergies Allergy/AdvReac Type Severity Reaction Status Date / Time exenatide Allergy Unknown GI UPSET Verified 11/02/19 12:56 ibuprofen Allergy Unknown GI UPSET Verified 11/02/19 12:56 mirtazapine Allergy Unknown MOUTH/FACIAL Verified 11/02/19 12:56 SWELLING oxycodone Allergy Unknown GI UPSET Verified 11/02/19 12:56 AND IRRITATION Penicillins Allergy Unknown WELTS Verified 11/02/19 12:56 phenol Allergy Unknown GI UPSET Verified 11/02/19 12:56 Sulfa (Sulfonamide Allergy Unknown PT DOESN'T Verified 11/02/19 12:56 Antibiotics) REMEMBER REACTION - MOTHER TOLD PT Home Medications Home Medications Medication Instructions Recorded Confirmed Type acetaminophen [Tylenol Arthritis 650 mg PO Q12H PRN 12/21/18 11/02/19 History Pain] aspirin [Aspir-81] 81 mg PO QAM 12/21/18 11/02/19 History multivitamin 1 cap PO QAM 12/21/18 11/02/19 History venlafaxine 75 mg tablet 225 mg PO DAILY tab 06/10/19 11/02/19 History escitalopram oxalate 20 mg tablet 10 mg PO HS #90 tab 07/20/19 11/02/19 Rx blood sugar diagnostic #250 ea 07/26/19 Rx blood sugar diagnostic #250 ea 07/26/19 Rx blood-glucose sensor #4 ea 08/03/19 Rx blood-glucose transmitter #1 ea 08/03/19 Rx pen needle, diabetic 32 gauge x #90 ea 08/03/19 Rx 5/32" rosuvastatin 10 mg tablet 10 mg PO HS #90 tab 08/03/19 11/02/19 Rx fluticasone propionate 50 2 spray INTRANASAL DAILY PRN #36.4 09/27/19 11/02/19 Rx mcg/actuation nasal ml spray,suspension cholecalciferol (vitamin D3) 1,000 unit PO QAM 11/02/19 11/02/19 History [Vitamin D3] insulin glargine [Lantus Solostar 18 units SQ HS 11/02/19 11/02/19 History U-100 Insulin] insulin lispro [Humalog KwikPen 25 units SUBCUT DAILY 11/02/19 11/02/19 History Insulin] levothyroxine 88 mcg PO QAM 11/02/19 11/02/19 History loratadine 10 mg PO QAM PRN 11/02/19 11/02/19 History Past Med/Surg History Medical History (Updated 11/02/19 @ 14:42 by Earnest Hager) Anxiety Depression Diabetes mellitus, type 2 History of diabetic neuropathy B/L LEGS AND FEET. Hypothyroidism Stage 3 chronic kidney disease Surgical History History of adenoidectomy History of appendectomy History of bunionectomy 2+ SURGERIES History of cataract surgery History of cholecystectomy History of colonoscopy History of hysterectomy 1976. TOTAL HYSTER FOR DYSPLASIA History of tonsillectomy B/L History of total hip arthroplasty B/L History of total knee replacement History of total shoulder replacement RIGHT Social History Preferred Language: Malian Communication Ability: Effective [place] Tender Required: No Beliefs That Will Affect Care: None Feels Safe at Home: Yes Smoking Status: Current every day smoker Tobacco Type: cigarettes ; Cigarettes Per Day: QUIT IN 1979 ; Second Hand Exposure: No ; Hx Alcohol Use: No Hx Substance Use: No Review of Systems Constitutional: no fever, no chills, no weakness, no weight loss and no weight gain Eyes: as per Subjective / HPI Respiratory: + dyspnea and + dyspnea on exertion; no cough, no chest congestion, no sputum production and no wheezing Cardiovascular: + dyspnea; no chest pain, no orthopnea, no palpitations, no lightheadedness, no edema and no claudication Gastrointestinal: no abdominal pain, no nausea, no vomiting, no constipation and no diarrhea/loose stools Genitourinary: no dysuria, no difficulty urinating, no urinary frequency, no urinary hesitancy, no urinary urgency and no flank pain Musculoskeletal: no back pain, no neck pain, no joint pain, no stiffness and no myalgia Integumentary: no rash Neurologic: no gait abnormality, no unsteadiness, no falls and no generalized weakness Physical Exam Constitutional: cooperative; no acute distress Neck: trachea midline, no thyromegaly Respiratory: normal respiratory effort Auscultation: lungs clear to auscultation bilaterally; no crackles, no rales, no rhonchi and no wheezes Cardiovascular: Rate/Rhythm: regular rate and regular rhythm Heart Sounds: normal S1 and normal S2 Vessels: no JVD Gastrointestinal (Abdomen): Inspection/Auscultation: abdomen normal to inspection Percussion/Palpation: abdomen soft; abdomen nontender, no guarding, abdomen not rigid and no hepatosplenomegaly Skin: no rashes, warm and dry Psychiatric: Somewhat anxious Results & Data Vital Signs (Past 12 Hours) Vital Signs Temp Pulse Pulse Resp BP BP Pulse Ox 11/02/19 14:40 87 20 189/95 H 97 11/02/19 13:58 85 19 189/95 H 98 11/02/19 13:50 79 23 97 11/02/19 13:40 77 21 97 11/02/19 13:30 89 16 11/02/19 13:20 75 20 96 11/02/19 13:10 81 18 96 11/02/19 13:00 81 22 96 11/02/19 12:53 78 19 152/87 H 96 11/02/19 12:52 80 18 152/87 H 94 11/02/19 12:50 83 15 97 11/02/19 12:40 79 26 H 95 11/02/19 12:30 80 21 94 11/02/19 12:25 80 22 94 11/02/19 12:20 83 20 100 11/02/19 11:38 36.9 C 90 16 152/80 H 99 Laboratory Results WBC 13.14. Hemoglobin 12.3 hematocrit of 36.7. Platelets of 325. BUN of 59 creatinine 2.16 which is markedly elevated from June 2019. Glucose is 125. UA is entirely negative. Diagnostic Findings XR chest 1V portable CLINICAL HISTORY: Dyspnea dyspnea COMPARISON STUDY: No previous studies for comparison. FINDINGS: The bones soft tissues and hemidiaphragms are normal. The cardiomediastinal silhouette is normal. The lungs are clear. The pulmonary vasculature is normal. Right shoulder arthroplasty in good position. Significant degenerative change left shoulder. IMPRESSION: No acute process PG Care Time/CCT Total # of Minutes Spent Total Time Spent with Patient: Total time spent is greater than 50% in coordination of care (as documented) at patient's floor/unit and/or counseling patient: Coding Level of Care Code 12084 OBS Care - Level 3 Diagnoses SOB (shortness of breath) R06.02 Acute kidney injury N17.9 Diabetes mellitus, type 2 E11.9
[2019-11-02] MEDS ORDERED: ZOLPIDEM TARTRATE 5 MG TAB PO PRN (17:09)
[2019-11-02] MEDS ORDERED: GLUCAGON FOR INJ 1 MG VIAL SQ PRN (17:09)
[2019-11-02] MEDS ORDERED: LORATADINE 10 MG TAB PO PRN (17:09)
[2019-11-02] MEDS ORDERED: NON-FORMULARY MEDICATION (Acetaminophen [Tylenol Arthritis Pain] 650 MG) PO PRN (17:09)
[2019-11-02] MEDS ORDERED: DEXTROSE 50% 50 ML SYRINGE IV PRN (17:09)
[2019-11-02] MEDS ORDERED: GLUCOSE 10 TABS/TUBE PO PRN (17:09)
[2019-11-02] MEDS ORDERED: GLUCOSE 40% GEL 15 GM TUBE PO PRN (17:09)
[2019-11-02] MEDS ORDERED: CARBOHYDRATES FOR HYPOGLYCEMIA PO PRN (17:09)
[2019-11-02] MEDS ORDERED: ACETAMINOPHEN 325 MG TAB PO PRN (17:09)
[2019-11-02] MEDS ORDERED: ONDANSETRON INJ 2 MG/ML 2 ML VIAL IV PRN (17:09)
[2019-11-02] MEDS: INSULIN ASPART 100 UNITS/ML 3 ML PEN SC SCH ×2 (18:10→21:23)
[2019-11-02] MEDS: SODIUM CHLORIDE 0.9% 1000ML 1,000 ML IV SCH (18:11)
[2019-11-02] MEDS ORDERED: ROSUVASTATIN CALCIUM 10 MG TAB PO SCH (21:00)
[2019-11-02] MEDS: INSULIN GLARGINE SOLOSTAR 100 UNITS/ML 3 ML PEN SQ SCH (21:23)
[2019-11-02] MEDS: ESCITALOPRAM OXALATE 10 MG TAB PO SCH (21:24)
[2019-11-03] MEDS: SODIUM CHLORIDE 0.9% 1000ML 1,000 ML IV SCH ×2 (04:18→13:10)
[2019-11-03 06:25] LABS: Basophils # (auto) 0.08 K/uL (0-0.2); Basophils % (auto) 0.6 %; Eosinophils # (auto) 0.78 K/uL (0-0.5); Eosinophils % (auto) 6.1 %; Hematocrit (blood only) 36.1 % (37-47); Immature Granulocytes # (auto) 0.03 K/uL (0.00-0.02); Immature Granulocytes % (auto) 0.2 %; Lymphocytes # (auto) 3.09 K/uL (1.2-3.4); Mean Corpuscular Hemoglobin 30.1 pg (25-34); Mean Corpuscular Hgb Conc 33.2 g/dL (32-36); Mean Corpuscular Volume 90.5 fL (80-100); Monocytes # (auto) 1.05 K/uL (0.11-0.59); Monocytes % (auto) 8.2 %; Neutrophils # (auto) 7.83 K/uL (1.4-6.5); Neutrophils % (auto) 60.9 %; Platelet Count 332 K/uL (130-400); RDW Coefficient of Variation 14.7 % (11.5-14.5); RDW Standard Deviation 48.7 fL (36.4-46.3); Red Blood Count 3.99 M/uL (4.2-5.4); White Blood Count 12.86 K/uL (4.8-10.8)
[2019-11-03] MEDS: LEVOTHYROXINE SODIUM 88 MCG TABLET PO SCH (06:29)
[2019-11-03 06:54] LABS: BUN Creatinine Ratio 22.9 (10-20); Calcium 9.5 mg/dl (8.5-10.1); Creatinine Clr Calc Pharmacy 21.6 ml/min; Est GFR (African American) 24.1; Est GFR (Non-African American) 20.8; Magnesium 2.1 mg/dl (1.8-2.4)
[2019-11-03] MEDS: INSULIN ASPART 100 UNITS/ML 3 ML PEN SC SCH ×4 (09:00→20:51)
[2019-11-03] MEDS: ASPIRIN 81 MG ECTAB PO SCH (09:02)
[2019-11-03] MEDS: VENLAFAXINE HCL XR 75 MG CAPXR PO SCH (09:02)
[2019-11-03] MEDS: CHOLECALCIFEROL 1,000 UNITS 25 MCG TAB PO SCH (09:02)
[2019-11-03] MEDS: MULTIVITAMIN TAB PO SCH (09:02)
[2019-11-03 09:48] LABS: Estimated Average Glucose 160 mg/dl; Hemoglobin A1C 7.2 % (4.5-5.6)
--- NOTE | 2019-11-03 12:02 | XCELERA ---
[id number] \\[email or web address]\[id number]
[2019-11-03 14:40] LABS: BUN Creatinine Ratio 20.9 (10-20); Calcium 8.7 mg/dl (8.5-10.1); Creatinine Clr Calc Pharmacy 21.1 ml/min; Est GFR (African American) 23.5; Est GFR (Non-African American) 20.3; Potassium 4.1 mmol/L (3.5-5.1)
--- NOTE | 2019-11-03 15:08 | Ultrasound Report ---
US duplex renal artery CLINICAL HISTORY: Acute renal insufficiency. Renal artery stenosis. COMPARISON STUDY: No previous studies for comparison. FINDINGS: The peak systolic velocity within the aorta was 102 cm/s. The peak systolic velocity within the right renal artery was 93 cm/s. The proximal right renal artery velocity was 56 cm/s. The right renal vein was patent. The peak systolic velocity within the left renal artery was 68 cm/s. Left radha l vein was patent. The right kidney measured 9.2 cm in length. Left kidney measures 9.8 cm in length. There is no hydronephrosis. There is increased renal cortical echogenicity consistent with medical re nal disease. IMPRESSION: 1. No ultrasonographic evidence of renal artery stenosis 2. Increased renal cortical echogenicity consistent with medical renal disease ACT 112: Negative or not required by law. Electronically signed by: Daniel Abebe M.D. 11/03/2019 3:07 PM
--- NOTE | 2019-11-03 16:25 | Nephrology Consultation ---
Date of Consultation November 03, 2019 Assessment & Plan (1) Acute kidney injury: The acuity of this is not entirely clear. Serum creatinine was normal in June. Creatinine has been stable for the past 24 hours. Electrolytes are normal. The patient is nonoliguric. Her volume status on exam appears euvolemic. Urinalysis is bland. She does not have significant proteinuria. She denies any recent nephrotoxic medications. Blood pressure has been slightly elevated but overall acceptable. 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 Renal artery duplex was requested today given the history described. Any further evaluation will be deferred pending review of additional records and continue monitoring. Patient is tolerating IV fluids. She has been maintained in a positive fluid balance. Blood glucose control has been acceptable. Input and output are being documented. A repeat metabolic profile scheduled for tomorrow morning. History of Present Illness Reason for Consultation: Renal insufficiency Requesting Physician: Hemant Bentley MD Attending Physician: Hemant Bentley MD History of Present Illness Amaris Cornejo is a 79-year-old female with diabetes mellitus type 2, osteoarthritis, hypothyroidism, and chronic kidney disease. In June 2019 serum creatinine was measured at 0.9 mg/dL. However, more recently the patient's serum creatinine was found to be elevated. She was recently evaluated by Dr. Appiah in the outpatient setting. Evaluation included renal US which reportedly demonstrated renal asymmetry. Records from Dr. Palmer following the results of her renal ultrasound have been requested. Patient was told that she likely had underlying renal vascular disease as well as a possible history of cardiovascular disease. She did not completely understand the significance of this. She notes that over the past week she has had progressive increasing dyspnea with decreased activity tolerance. She had increased anxiety regarding her recent changes in health. She presented the emergency department for additional evaluation. In the ER her serum creatinine was found to be 2.16 mg/dL. Repeat testing today demonstrated a serum creatinine of 2.2 mg/dL. Patient's A1c has been 7.0. Her urinalysis is bland. Her chest x-ray was normal. Transthoracic echocardiogram was completed this morning. I saw and evaluated the patient following the study. Results were not available for review at that time. At the time of my assessment, patient was comfortable without any significant complaints. She denies any NSAID use. She denies any recent changes in medications. Allergies Allergy/AdvReac Type Severity Reaction Status Date / Time exenatide Allergy Unknown GI UPSET Verified 11/02/19 12:56 ibuprofen Allergy Unknown GI UPSET Verified 11/02/19 12:56 mirtazapine Allergy Unknown MOUTH/FACIAL Verified 11/02/19 12:56 SWELLING oxycodone Allergy Unknown GI UPSET Verified 11/02/19 12:56 AND IRRITATION Penicillins Allergy Unknown WELTS Verified 11/02/19 12:56 phenol Allergy Unknown GI UPSET Verified 11/02/19 12:56 Sulfa (Sulfonamide Allergy Unknown PT DOESN'T Verified 11/02/19 12:56 Antibiotics) REMEMBER REACTION - MOTHER TOLD PT Home Medications Home Medications Medication Instructions Recorded Confirmed Type acetaminophen [Tylenol Arthritis 650 mg PO Q12H PRN 12/21/18 11/02/19 History Pain] aspirin [Aspir-81] 81 mg PO QAM 12/21/18 11/02/19 History multivitamin 1 cap PO QAM 12/21/18 11/02/19 History venlafaxine 75 mg tablet 225 mg PO DAILY tab 06/10/19 11/02/19 History escitalopram oxalate 20 mg tablet 10 mg PO HS #90 tab 07/20/19 11/02/19 Rx blood sugar diagnostic #250 ea 07/26/19 Rx blood sugar diagnostic #250 ea 07/26/19 Rx blood-glucose sensor #4 ea 08/03/19 Rx blood-glucose transmitter #1 ea 08/03/19 Rx pen needle, diabetic 32 gauge x #90 ea 08/03/19 Rx 5/32" rosuvastatin 10 mg tablet 10 mg PO HS #90 tab 08/03/19 11/02/19 Rx fluticasone propionate 50 2 spray INTRANASAL DAILY PRN #36.4 09/27/19 11/02/19 Rx mcg/actuation nasal ml spray,suspension cholecalciferol (vitamin D3) 1,000 unit PO QAM 11/02/19 11/02/19 History [Vitamin D3] insulin glargine [Lantus Solostar 18 units SQ HS 11/02/19 11/02/19 History U-100 Insulin] insulin lispro [Humalog KwikPen 25 units SUBCUT DAILY 11/02/19 11/02/19 History Insulin] levothyroxine 88 mcg PO QAM 11/02/19 11/02/19 History loratadine 10 mg PO QAM PRN 11/02/19 11/02/19 History Patient History Medical History Anxiety Depression Diabetes mellitus, type 2 History of diabetic neuropathy B/L LEGS AND FEET. Hypothyroidism Stage 3 chronic kidney disease Surgical History History of adenoidectomy History of appendectomy History of bunionectomy 2+ SURGERIES History of cataract surgery History of cholecystectomy History of colonoscopy History of hysterectomy 1976. TOTAL HYSTER FOR DYSPLASIA History of tonsillectomy B/L History of total hip arthroplasty B/L History of total knee replacement History of total shoulder replacement RIGHT Family History Mother Depression Scoliosis Father Depression Lung cancer Grandmother Breast cancer Social History Preferred Language: Korean Communication Ability: Effective Data Input Clerk Required: No Beliefs That Will Affect Care: None Current Living Situation: Alone Other Information That Helps Us Care for You: No Feels Safe at Home: Yes Safety Concerns: Feels Safe At This Time Smoking Status: Former smoker Tobacco Type: cigarettes ; Cigarettes Per Day: QUIT IN 1979 ; Smoking End Date: 40 years ago ; Second Hand Exposure: No ; Hx Alcohol Use: Yes (AA for 30 years) Hx Substance Use: No Review of Systems Review of Systems: All systems reviewed & are unremarkable except as noted in HPI & below Constitutional: no weight loss, no weight gain and no problem reported Eyes: no problem reported Ear, Nose, Mouth, Throat: no problem reported Respiratory: no problem reported Cardiovascular: no problem reported Gastrointestinal: no problem reported Musculoskeletal: no problem reported Integumentary: no problem reported Neurologic: no problem reported Psychiatric: no problem reported Endocrine: no problem reported Hematologic / Lymphatic: no problem reported Physical Exam Constitutional: well developed; no acute distress Eyes: no scleral abnormality and no corneal abnormality ENMT: Mouth: no oral mucosal abnormality and oral mucous membranes not dry Neck: normal visual inspection and trachea midline Respiratory: normal respiratory effort Auscultation: lungs clear to auscultation bilaterally Cardiovascular: Rate/Rhythm: regular rate Heart Sounds: normal S1 and norm al S2 Extremities: no edema Musculoskeletal: Extremities: no cyanosis and no clubbing Skin: normal turgor; no lesions Neurologic: Motor/Sensory: no tremor and no asterixis Psychiatric: Orientation: alert and oriented x 3 Results & Data Vital Signs (Past 12 Hours) Vital Signs Temp Pulse Resp BP Pulse Ox 11/03/19 15:32 36.8 C 73 20 166/76 H 97 11/03/19 08:34 133/74 94 11/03/19 07:03 36.8 C 84 20 177/79 H 93 Laboratory Results Laboratory Results - last 24 hr 11/02/19 11/02/19 11/03/19 17:35 21:09 04:55 WBC 12.86 H RBC 3.99 L Hgb 12.0 Hct 36.1 L MCV 90.5 MCH 30.1 MCHC 33.2 RDW Std Deviation 48.7 H RDW Coeff of Iban 14.7 H Plt Count 332 MPV 9.0 Immature Gran % (Auto) 0.2 Neut % (Auto) 60.9 Lymph % (Auto) 24.0 [place] % (Auto) 8.2 Eos % (Auto) 6.1 Baso % (Auto) 0.6 Immature Gran # (Auto) 0.03 H Neut # (Auto) 7.83 H Lymph # (Auto) 3.09 [place] # (Auto) 1.05 H Eos # (Auto) 0.78 H Baso # (Auto) 0.08 Sodium Potassium Chloride Carbon Dioxide Anion Gap BUN Creatinine Est Cr Clr Drug Dosing Est GFR ( Amer) Est GFR (Non-Af Amer) BUN/Creatinine Ratio Glucose POC Glucose 226 H 116 H Estimat Average Glucose Hemoglobin A1c Calcium Magnesium 11/03/19 11/03/19 11/03/19 04:55 04:55 07:56 WBC RBC Hgb Hct MCV MCH MCHC RDW Std Deviation RDW Coeff of Iban Plt Count MPV Immature Gran % (Auto) Neut % (Auto) Lymph % (Auto) [place] % (Auto) Eos % (Auto) Baso % (Auto) Immature Gran # (Auto) Neut # (Auto) Lymph # (Auto) [place] # (Auto) Eos # (Auto) Baso # (Auto) Sodium 144 D Potassium 4.0 Chloride 111 H Carbon Dioxide 28 Anion Gap 5.0 BUN 51 H Creatinine 2.21 H Est Cr Clr Drug Dosing 21.6 Est GFR ( Amer) 24.1 Est GFR (Non-Af Amer) 20.8 BUN/Creatinine Ratio 22.9 H Glucose 79 POC Glucose 100 H Estimat Average Glucose 160 Hemoglobin A1c 7.2 H Calcium 9.5 Magnesium 2.1 11/03/19 11/03/19 11/03/19 11:31 14:02 14:31 WBC RBC Hgb Hct MCV MCH MCHC RDW Std Deviation RDW Coeff of Iban Plt Count MPV Immature Gran % (Auto) Neut % (Auto) Lymph % (Auto) [place] % (Auto) Eos % (Auto) Baso % (Auto) Immature Gran # (Auto) Neut # (Auto) Lymph # (Auto) [place] # (Auto) Eos # (Auto) Baso # (Auto) Sodium 139 Potassium 4.1 Chloride 109 H Carbon Dioxide 25 Anion Gap 5.0 BUN 47 H Creatinine 2.26 H Est Cr Clr Drug Dosing 21.1 Est GFR ( Amer) 23.5 Est GFR (Non-Af Amer) 20.3 BUN/Creatinine Ratio 20.9 H Glucose 111 H POC Glucose 147 H 96 Estimat Average Glucose Hemoglobin A1c Calcium 8.7 Magnesium PG Care Time/CCT Total # of Minutes Spent Total Time Spent with Patient: Total time spent is greater than 50% in coordination of care (as documented) at patient's floor/unit and/or counseling patient: Coding Level of Care Code 78166 Inpt Consult Level 4 Diagnoses Acute kidney injury N17.9
--- NOTE | 2019-11-03 17:57 | Hospitalist Progress Note ---
Date of Service November 03, 2019 Assessment & Plan (1) SOB (shortness of breath): 79 yo F with PMH DM2 on insulin, recent diagnosis of CKD stage 3 who presented to the hospital for shortness of breath. 1) SOB - cardiac echo EF 65-70%, no valvular dysfunction, mild concentric ventricular hypertrophy - CXR negative for acute findings - elevated WBC on admission 2) DARREL on CKD stage 3 - BUN/CR elevated at 59/2.16 - Cr worsening despite fluid management to 2.26 - renal ultrasound indicative of "echogenicity indicative of medical renal disease" DVT ppx: ambulation diet: diabetic diet Code: full code (2) Acute kidney injury: (3) Diabetes mellitus, type 2: Admission and Anticipated Discharge Date Admission Date: November 02, 2019 Supervising Physician Co-Signing Physician Notes Attending attestation Pt seen and examined in concert with Dr. Maloney. In agreement with the documented findings as noted in the resident documentation with any exceptions or additions as noted here. Resting at bedside, still with SOB worse with even short ambulation. Former [employer]. On examination, S1/S2 nl RRR no MCG. CTAB. Abd NT/ND BS+ve Shortness of breath - echo, EKG completed - agree w/ ambulatory sat check, outpatient pulm evaluation Elevated BP - persistently elevated, may represent underlying HTN. Outside records would be helpful, would consider addition of BP medication especially in light of elevated creatinine DARREL - renal duplex completed - continue gentle hydration, trend BMP DMII - continue present regimen Else see resident documentation as noted. Subjective Pleasant 79 yo F who came to the hospital for shortness of breath for the past 4-5 days. Attests to dyspnea on exertion, denies SOB at rest, denies chest pain, palpitations, peripheral edema. Review of Systems Constitutional: no fever, no chills, no body aches and no fatigue Respiratory: no cough and no dyspnea Cardiovascular: no chest pain, no dyspnea and no edema Gastrointestinal: no abdominal pain, no nausea, no vomiting, no constipation and no diarrhea/loose stools Genitourinary: no dysuria Physical Exam Constitutional: cooperative; no acute distress and not ill appearing Neck: normal visual inspection Respiratory: normal respiratory effort and able to speak in complete sentences; no respiratory distress, no labored breathing, no retractions, no cough and no audible wheezes Auscultation: lungs clear to auscultation bilaterally; no crackles, no rales, no rhonchi and no wheezes Cardiovascular: Rate/Rhythm: regular rate and regular rhythm Heart Sounds: normal S1 and normal S2; no gallop, no murmur and no cardiac rub Vessels: posterior tibial pulses present Extremities: no pedal edema and no edema Gastrointestinal (Abdomen): Inspection/Auscultation: abdomen normal to ins pection and normal bowel sounds; abdomen not distended Percussion/Palpation: abdomen soft; abdomen nontender, no guarding, abdomen not rigid and no abdominal mass Results & Data ([facility]) Vital Signs (Past 12 Hours) Vital Signs Temp Pulse Resp BP Pulse Ox 11/03/19 15:32 36.8 C 73 20 166/76 H 97 11/03/19 08:34 133/74 94 11/03/19 07:03 36.8 C 84 20 177/79 H 93 11/03/19 11/03/19 11/03/19 Range/Units 16:53 14:31 14:02 WBC (4.8-10.8) K/uL RBC (4.2-5.4) M/uL Hgb (12.0-16.0) g/dL Hct (37-47) % MCV (80-100) fL MCH (25-34) pg MCHC (32-36) g/dL RDW Std Deviation (36.4-46.3) fL RDW Coeff of Iban (11.5-14.5) % Plt Count (130-400) K/uL MPV (7.4-10.4) fL Immature Gran % (Auto) % Neut % (Auto) % Lymph % (Auto) % [place] % (Auto) % Eos % (Auto) % Baso % (Auto) % Immature Gran # (Auto) (0.00-0.02) K/uL Neut # (Auto) (1.4-6.5) K/uL Lymph # (Auto) (1.2-3.4) K/uL [place] # (Auto) (0.11-0.59) K/uL Eos # (Auto) (0-0.5) K/uL Baso # (Auto) (0-0.2) K/uL Sodium 139 (136-145) mmol/L Potassium 4.1 (3.5-5.1) mmol/L Chloride 109 H (98-107) mmol/L Carbon Dioxide 25 (21-32) mmol/L Anion Gap 5.0 (3-11) BUN 47 H (7-18) mg/dl Creatinine 2.26 H (0.6-1.2) mg/dl Est Cr Clr Drug Dosing 21.1 ml/min Est GFR ( Amer) 23.5 Est GFR (Non-Af Amer) 20.3 BUN/Creatinine Ratio 20.9 H (10-20) Glucose 111 H (70-99) mg/dl POC Glucose 191 H 96 (70-99) mg/dl Estimat Average Glucose mg/dl Hemoglobin A1c (4.5-5.6) % Calcium 8.7 (8.5-10.1) mg/dl Magnesium (1.8-2.4) mg/dl 11/03/19 11/03/19 11/03/19 Range/Units 11:31 07:56 04:55 WBC (4.8-10.8) K/uL RBC (4.2-5.4) M/uL Hgb (12.0-16.0) g/dL Hct (37-47) % MCV (80-100) fL MCH (25-34) pg MCHC (32-36) g/dL RDW Std Deviation (36.4-46.3) fL RDW Coeff of Iban (11.5-14.5) % Plt Count (130-400) K/uL MPV (7.4-10.4) fL Immature Gran % (Auto) % Neut % (Auto) % Lymph % (Auto) % [place] % (Auto) % Eos % (Auto) % Baso % (Auto) % Immature Gran # (Auto) (0.00-0.02) K/uL Neut # (Auto) (1.4-6.5) K/uL Lymph # (Auto) (1.2-3.4) K/uL [place] # (Auto) (0.11-0.59) K/uL Eos # (Auto) (0-0.5) K/uL Baso # (Auto) (0-0.2) K/uL Sodium (136-145) mmol/L Potassium (3.5-5.1) mmol/L Chloride (98-107) mmol/L Carbon Dioxide (21-32) mmol/L Anion Gap (3-11) BUN (7-18) mg/dl Creatinine (0.6-1.2) mg/dl Est Cr Clr Drug Dosing ml/min Est GFR ( Amer) Est GFR (Non-Af Amer) BUN/Creatinine Ratio (10-20) Glucose (70-99) mg/dl POC Glucose 147 H 100 H (70-99) mg/dl Estimat Average Glucose 160 mg/dl Hemoglobin A1c 7.2 H (4.5-5.6) % Calcium (8.5-10.1) mg/dl Magnesium (1.8-2.4) mg/dl 11/03/19 11/03/19 11/02/19 Range/Units 04:55 04:55 21:09 WBC 12.86 H (4.8-10.8) K/uL RBC 3.99 L (4.2-5.4) M/uL Hgb 12.0 (12.0-16.0) g/dL Hct 36.1 L (37-47) % MCV 90.5 (80-100) fL MCH 30.1 (25-34) pg MCHC 33.2 (32-36) g/dL RDW Std Deviation 48.7 H (36.4-46.3) fL RDW Coeff of Iban 14.7 H (11.5-14.5) % Plt Count 332 (130-400) K/uL MPV 9.0 (7.4-10.4) fL Immature Gran % (Auto) 0.2 % Neut % (Auto) 60.9 % Lymph % (Auto) 24.0 % [place] % (Auto) 8.2 % Eos % (Auto) 6.1 % Baso % (Auto) 0.6 % Immature Gran # (Auto) 0.03 H (0.00-0.02) K/uL Neut # (Auto) 7.83 H (1.4-6.5) K/uL Lymph # (Auto) 3.09 (1.2-3.4) K/uL [place] # (Auto) 1.05 H (0.11-0.59) K/uL Eos # (Auto) 0.78 H (0-0.5) K/uL Baso # (Auto) 0.08 (0-0.2) K/uL Sodium 144 D (136-145) mmol/L Potassium 4.0 (3.5-5.1) mmol/L Chloride 111 H (98-107) mmol/L Carbon Dioxide 28 (21-32) mmol/L Anion Gap 5.0 (3-11) BUN 51 H (7-18) mg/dl Creatinine 2.21 H (0.6-1.2) mg/dl Est Cr Clr Drug Dosing 21.6 ml/min Est GFR ( Amer) 24.1 Est GFR (Non-Af Amer) 20.8 BUN/Creatinine Ratio 22.9 H (10-20) Glucose 79 (70-99) mg/dl POC Glucose 116 H (70-99) mg/dl Estimat Average Glucose mg/dl Hemoglobin A1c (4.5-5.6) % Calcium 9.5 (8.5-10.1) mg/dl Magnesium 2.1 (1.8-2.4) mg/dl Resident Activity Tracking Resident Involvement: Resident Care Provided Care Provided: Adult [facility]
[2019-11-03] MEDS: INSULIN GLARGINE SOLOSTAR 100 UNITS/ML 3 ML PEN SQ SCH (20:50)
[2019-11-03] MEDS: ESCITALOPRAM OXALATE 10 MG TAB PO SCH (20:50)
[2019-11-03] MEDS ORDERED: ROSUVASTATIN CALCIUM 5 MG TAB PO SCH (21:00)
[2019-11-03] MEDS ORDERED: COUGH DROP (SUGAR FREE) LOZ 24 LOZ/1 BOX BUCCAL PRN (23:33)
[2019-11-04] MEDS: FLUTICASONE PROPIONATE NA SPR 16 GM BTL PRN ×2 (00:32→05:59)
[2019-11-04] MEDS: LEVOTHYROXINE SODIUM 88 MCG TABLET PO SCH (05:59)
--- NOTE | 2019-11-04 07:11 | Hospitalist Progress Note ---
Date of Service November 04, 2019 Assessment & Plan (1) SOB (shortness of breath): 79 yo F with PMH DM2 on insulin, recent diagnosis of CKD stage 3 who presented to the hospital for shortness of breath. 1) SOB - cardiac echo EF 65-70%, no valvular dysfunction, mild concentric ventricular hypertrophy - CXR negative for acute findings - elevated WBC on admission 2) DARREL on CKD stage 3 - BUN/CR elevated at 59/2.16 - Cr worsening despite fluid management to 2.26 - renal ultrasound indicative of "echogenicity indicative of medical renal disease" DVT ppx: ambulation diet: diabetic diet Code: full code (2) Acute kidney injury: (3) Diabetes mellitus, type 2: Admission and Anticipated Discharge Date Admission Date: November 02, 2019 Results & Data ([facility]) Vital Signs (Past 12 Hours) Vital Signs Temp Pulse Resp BP Pulse Ox 11/04/19 06:39 36.5 C 68 18 146/76 H 95 11/03/19 23:19 36.4 C L 73 18 170/88 H 94
[2019-11-04 07:22] LABS: Basophils # (auto) 0.08 K/uL (0-0.2); Basophils % (auto) 0.9 %; Eosinophils # (auto) 0.69 K/uL (0-0.5); Eosinophils % (auto) 7.9 %; Hematocrit (blood only) 33.9 % (37-47); Hemoglobin 11.2 g/dL (12.0-16.0); Immature Granulocytes # (auto) 0.02 K/uL (0.00-0.02); Immature Granulocytes % (auto) 0.2 %; Lymphocytes # (auto) 1.92 K/uL (1.2-3.4); Mean Corpuscular Volume 90.9 fL (80-100); Monocytes # (auto) 0.78 K/uL (0.11-0.59); Monocytes % (auto) 8.9 %; Neutrophils # (auto) 5.23 K/uL (1.4-6.5); Neutrophils % (auto) 60.1 %; Platelet Count 260 K/uL (130-400); RDW Coefficient of Variation 14.6 % (11.5-14.5); RDW Standard Deviation 49.3 fL (36.4-46.3); Red Blood Count 3.73 M/uL (4.2-5.4); White Blood Count 8.72 K/uL (4.8-10.8)
[2019-11-04 07:57] LABS: BUN Creatinine Ratio 19.8 (10-20); Calcium 9.3 mg/dl (8.5-10.1); Creatinine Clr Calc Pharmacy 22.1 ml/min; Est GFR (African American) 24.8; Est GFR (Non-African American) 21.4; Potassium 4.2 mmol/L (3.5-5.1)
[2019-11-04] MEDS: VENLAFAXINE HCL XR 75 MG CAPXR PO SCH (08:13)
[2019-11-04] MEDS: MULTIVITAMIN TAB PO SCH (08:13)
[2019-11-04] MEDS: ASPIRIN 81 MG ECTAB PO SCH (08:13)
[2019-11-04] MEDS: CHOLECALCIFEROL 1,000 UNITS 25 MCG TAB PO SCH (08:14)
--- NOTE | 2019-11-04 09:39 | Nephrology Progress Note ---
Date of Service November 04, 2019 Assessment & Plan (1) Acute kidney injury: Creatinine stable. Euvolemic. Adequate urine output. BP acceptable. Electrolytes within normal limits. UA demonstrated +1 protein but otherwise bland. Acellular urine microscopy. No concerning findings noted on imaging. Importance of outpatient follow up was discussed. I reviewed the plan of care with Dr. Bentley this morning. From a nephrology standpoint, discharge with outpatient follow up would be considered appropriate. No additional changes or suggestions at this time. Etiology of dyspnea remains unclear but symptoms have improved. Persistent upper respiratory symptoms noted. No significant anginal symptoms noted. TTE and CXR reviewed. No abnormal findings. Subjective No acute events overnight. Amaris feels reasonably well today. Breathing comf ortably. Anxiety noted. Breathing comfortably. Describes some persistent sinus congestion and discomfort as well as post nasal gtt. Dry cough persists but improved. No fevers or chills. No chest pain or palpitations. Review of Systems Review of Systems: All systems reviewed & are unremarkable except as noted in HPI & below Physical Exam Constitutional: well developed; no acute distress Eyes: no scleral abnormality and no corneal abnormality ENMT: Mouth: no oral mucosal abnormality and oral mucous membranes not dry Neck: normal visual inspection and trachea midline Respiratory: normal respiratory effort Auscultation: lungs clear to auscultation bilaterally Cardiovascular: Rate/Rhythm: regular rate Heart Sounds: normal S1 and normal S2 Extremities: no edema Musculoskeletal: Extremities: no cyanosis and no clubbing Skin: normal turgor; no lesions Neurologic: Motor/Sensory: no tremor and no asterixis Psychiatric: Orientation: alert and oriented x 3 Results & Data Vital Signs (Past 12 Hours) Vital Signs Temp Pulse Resp BP Pulse Ox 11/04/19 06:39 36.5 C 68 18 146/76 H 95 11/03/19 23:19 36.4 C L 73 18 170/88 H 94 Laboratory Results Laboratory Results - last 24 hr 11/03/19 11/03/19 11/03/19 04:55 11:31 14:02 WBC RBC Hgb Hct MCV MCH MCHC RDW Std Deviation RDW Coeff of Iban Plt Count MPV Immature Gran % (Auto) Neut % (Auto) Lymph % (Auto) [place] % (Auto) Eos % (Auto) Baso % (Auto) Immature Gran # (Auto) Neut # (Auto) Lymph # (Auto) [place] # (Auto) Eos # (Auto) Baso # (Auto) Sodium 139 Potassium 4.1 Chloride 109 H Carbon Dioxide 25 Anion Gap 5.0 BUN 47 H Creatinine 2.26 H Est Cr Clr Drug Dosing 21.1 Est GFR ( Amer) 23.5 Est GFR (Non-Af Amer) 20.3 BUN/Creatinine Ratio 20.9 H Glucose 111 H POC Glucose 147 H Estimat Average Glucose 160 Hemoglobin A1c 7.2 H Calcium 8.7 11/03/19 11/03/19 11/03/19 14:31 16:53 20:14 WBC RBC Hgb Hct MCV MCH MCHC RDW Std Deviation RDW Coeff of Iban Plt Count MPV Immature Gran % (Auto) Neut % (Auto) Lymph % (Auto) [place] % (Auto) Eos % (Auto) Baso % (Auto) Immature Gran # (Auto) Neut # (Auto) Lymph # (Auto) [place] # (Auto) Eos # (Auto) Baso # (Auto) Sodium Potassium Chloride Carbon Dioxide Anion Gap BUN Creatinine Est Cr Clr Drug Dosing Est GFR ( Amer) Est GFR (Non-Af Amer) BUN/Creatinine Ratio Glucose POC Glucose 96 191 H 193 H Estimat Average Glucose Hemoglobin A1c Calcium 11/04/19 11/04/19 11/04/19 06:54 06:54 07:55 WBC 8.72 RBC 3.73 L Hgb 11.2 L Hct 33.9 L MCV 90.9 MCH 30.0 MCHC 33.0 RDW Std Deviation 49.3 H RDW Coeff of Iban 14.6 H Plt Count 260 MPV 9.0 Immature Gran % (Auto) 0.2 Neut % (Auto) 60.1 Lymph % (Auto) 22.0 [place] % (Auto) 8.9 Eos % (Auto) 7.9 Baso % (Auto) 0.9 Immature Gran # (Auto) 0.02 Neut # (Auto) 5.23 Lymph # (Auto) 1.92 [place] # (Auto) 0.78 H Eos # (Auto) 0.69 H Baso # (Auto) 0.08 Sodium 141 Potassium 4.2 Chloride 110 H Carbon Dioxide 26 Anion Gap 5.0 BUN 43 H Creatinine 2.16 H Est Cr Clr Drug Dosing 22.1 Est GFR ( Amer) 24.8 Est GFR (Non-Af Amer) 21.4 BUN/Creatinine Ratio 19.8 Glucose 153 H POC Glucose 163 H Estimat Average Glucose Hemoglobin A1c Calcium 9.3 PG Care Time/CCT Total # of Minutes Spent Total Time Spent with Patient: Total time spent is greater than 50% in coordination of care (as documented) at patient's floor/unit and/or counseling patient: Coding Level of Care Code 75348 Subseq Hosp Care Lvl 3 Diagnoses Acute kidney injury N17.9
[2019-11-04] MEDS: INSULIN ASPART 100 UNITS/ML 3 ML PEN SC SCH ×2 (10:39→12:40)
--- NOTE | 2019-11-04 11:04 | Discharge Summary ---
Date of Service November 04, 2019 Admission HPI Per Admitting Provider This is a 79-year-old female with past medical history of type 2 diabetes mellitus presents today complaining of acute shortness of breath. Patient is a somewhat difficult story and as she does divert from the topic occasionally. Patient apparently was started on insulin 18 months ago which she feels has been a "shock to her system ". She has not felt right since then. More recently, over the past 3-4 days, she has had worsening shortness of breath. This seems to be more dyspnea on exertion as she feels her exercise tolerance is not what it had been before. On further questioning, I find that the patient saw a package reinspector (Meghan) in [place] for acute renal failure. Then she was told that she is in stage III renal failure and there was a question of previous DE. Patient had been sent for an echo but has not yet had this completed. Patient was seen earlier at the ID which she maintains her medical care is a . She told them about her worsening dyspnea on exertion and was told present to the emergency room for further evaluation. At the time my evaluation, patient was satting 97% on room air. She was hypertensive at 189/95. She did not appear to be in any significant distress. Of note, her creatinine was 2.16 with a BUN of 59. Back in June 2019 her BUN was 26 with creatinine 0.93. I did look back at her records and it appears there was instructions to start lisinopril 20 mg back in June 2019 but the patient tells me that she did not take the medication and does not appear on any of her patient medication list. Admission Exam Per Admitting Provider Constitutional: cooperative; no acute distress Neck: trachea midline, no thyromegaly Respiratory: normal respiratory effort Auscultation: lungs clear to auscultation bilaterally; no crackles, no rales, no rhonchi and no wheezes Cardiovascular: Rate/Rhythm: regular rate and regular rhythm Heart Sounds: normal S1 and normal S2 Vessels: no JVD Gastrointestinal (Abdomen): Inspection/Auscultation: abdomen normal to inspection Percussion/Palpation: abdomen soft; abdomen nontender, no guarding, abdomen not rigid and no hepatosplenomegaly Skin: no rashes, warm and dry Psychiatric: Somewhat anxious Principal Diagnosis Dyspnea Discharge Exam Constitutional cooperative; no acute distress and not ill appearing Neck normal visual inspection Respiratory normal respiratory effort and able to speak in complete sentences; no respiratory distress, no labored breathing, no retractions, no cough and no audible wheezes Auscultation: lungs clear to auscultation bilaterally; no crackles, no rales, no rhonchi and no wheezes Cardiovascular Rate/Rhythm: regular rate and regular rhythm Heart Sounds: normal S1 and normal S2; no gallop, no murmur and no cardiac rub Vessels: posterior tibial pulses present Extremities: no pedal edema and no edema Gastrointestinal (Abdomen) Inspection/Auscultation: abdomen normal to inspection and normal bowel sounds; abdomen not distended Percussion/Palpation: abdomen soft; abdomen nontender, no guarding, abdomen not rigid and no abdominal mass Discharge Data Allergies Allergy/AdvReac Type Severity Reaction Status Date / Time exenatide Allergy Unknown GI UPSET Verified 11/02/19 12:56 ibuprofen Allergy Unknown GI UPSET Verified 11/02/19 12:56 mirtazapine Allergy Unknown MOUTH/FACIAL Verified 11/02/19 12:56 SWELLING oxycodone Allergy Unknown GI UPSET Verified 11/02/19 12:56 AND IRRITATION Penicillins Allergy Unknown WELTS Verified 11/02/19 12:56 phenol Allergy Unknown GI UPSET Verified 11/02/19 12:56 Sulfa (Sulfonamide Allergy Unknown PT DOESN'T Verified 11/02/19 12:56 Antibiotics) REMEMBER REACTION - MOTHER TOLD PT [place] 5 MCG Pen SOPN Allergy Unknown Uncoded 11/04/19 18:53 Remeron Allergy Unknown Uncoded 11/04/19 18:53 Consultations 11/02/19 13:53 ED Decision to Admit Stat 11/02/19 17:09 Consult Nephrology Routine Ordered Studies 11/03/19 14:30 US duplex renal artery Routine Hospital Course (1) SOB (shortness of breath): 79 yo F with PMH DM2 on insulin, recent diagnosis of CKD stage 3 who presented to the hospital for shortness of breath. Ms. Cornejo had a cardiac echo done in the hospital to rule out cardiac origin of her dyspnea, which showed 65-70% ejection fraction, no valvular dysfunction and mild concentric ventricular hypertrophy. No acute findings on chest xray. Notably she had a creatinine elevation of 2.16 on admission which worsened despite fluid management to 2.26. Renal doppler ultrasound was negative for embolism or blockage, showing only echogenicity indicative of medical renal disease. Nephrology consulted and agreed no further inpatient workup required. Patient would benefit from outpatient PFTs, follow up BMP. Can consider outpatient cardiac stress test. (2) Acute kidney injury: (3) Diabetes mellitus, type 2: Total Time Total Time Spent Total Time Spent (In Minutes): Discharge Plan Discharge Items Patient Disposition: Home - Self-Care Reason For Visit: ALONZO Discharge Diagnosis: dyspnea on exertion Activity: Resume your previous activity Non-emergency contact: Primary Care Provider and Cell Tuber Hand Call non-emergency contact if: you have any medication questions and your symptoms worsen Follow-up/Referrals: Piper Prince CRNP [Primary Care Provider] - 11/11/19 9:30 am (Follow up with Henry RODRIGUEZ) Berenice Carvajal MD, PhD [Physician] - 11/11/19 Chante Maloney MD [Resident] - Diet: Carb Consistent or DM2 Addtl Attending Provider Instructions: You were evaluated in the hospital for shortness of breath. Chest xray and a cardiac echo showed no evidence of pneumonia, fluid overload, or abnormal heart function. Labwork while you were in the hospital showed that your creatinine was elevated which is evidence of acute kidney injury, however this improved with increased fluid intake. Given your shortness of breath, you would benefit from having pulmonary function tests with a paper making machine operator in the outpatient setting. We also recommend seeing a package reinspector in the near future to follow your creatinine levels and ensure that they return to normal. Follow up with your primary care provider in the next few weeks as well to discuss continuing management and care for your diabetes. Pending Studies at Discharge: No Stand-Alone Forms: My [employer], Smoking Cessation Medications and DC Order Prescriptions: Continued (DME) Contour Next Test Strips strip See Rx Instructions .ROUTE .MEDSUPPLY Qty: 250 RF: 6 (DME) Contour Next Test Strips strip See Rx Instructions .ROUTE .MEDSUPPLY Qty: 250 RF: 6 (DME) Dexcom G5 Transmitter device See Rx Instructions .ROUTE .MEDSUPPLY Qty: 1 RF: 6 (DME) Dexcom G5-G4 Sensor device See Rx Instructions .ROUTE .MEDSUPPLY Qty: 4 RF: 6 (DME) pen needle, diabetic [BD Ultra-Fine Vera Pen Needle] 32 gauge x 5/32" needle See Dose Instructions .ROUTE .MEDSUPPLY Qty: 90 RF: 3 rosuvastatin 10 mg tablet 10 mg PO HS Qty: 90 RF: 3 fluticasone propionate [Flonase Allergy Relief] 50 mcg/actuation spray,suspension 2 spray INTRANASAL DAILY PRN (Reason: Allergy Symptoms) Qty: 36.4 RF: 0 escitalopram oxalate [Lexapro] 20 mg tablet 10 mg PO HS Qty: 90 RF: 2 cholecalciferol (vitamin D3) [Vitamin D3] 25 mcg (1,000 unit) Capsule 1,000 unit PO QAM RF: 0 levothyroxine 88 mcg tablet 88 mcg PO QAM RF: 0 loratadine 10 mg tablet 10 mg PO QAM PRN (Reason: allergy symptoms) RF: 0 insulin lispro [Humalog KwikPen Insulin] 100 unit/mL insulin pen 25 units SUBCUT DAILY RF: 0 Lantus Solostar U-100 Insulin 100 unit/mL (3 mL) insulin pen 18 units SQ HS RF: 0 aspirin [Aspir-81] 81 mg Tablet,Delayed Release (Dr/Ec) 81 mg PO QAM RF: 0 acetaminophen [Tylenol Arthritis Pain] 650 mg Tablet Extended Release 650 mg PO Q12H PRN (Reason: Pain) RF: 0 multivitamin Capsule 1 cap PO QAM RF: 0 venlafaxine 75 mg tablet 225 mg PO DAILY RF: 0 Discharge Orders: Discharge Order (Routine); Ordered 11/04/19 Ordered By: Chante Maloney Admission Data Admit Date/Time: 11/02/19 15:37 Attending Provider: Hemant Bentley Admit Provider: Wilbur Del Valle Primary Care Provider: Piper Prince Other Providers: Wilbur Del Valle ; Lan Hernández Smriti Other Interventions: Discharge Summary Assessment (RN) Last Done: 11/04/19 12:04 DC Date/Time DO NOT enter until pt leaves facility: 11/04/19 13:19 Supervising Physician Co-Signing Physician Notes Attending attestation Pt seen and examined in concert with Dr. Maloney. In agreement with the documented findings as noted in the resident documentation with any exceptions or additions as noted here. Shortness of breath stable to mildly improved without significant impairment of ADLs. Patient at baseline very active with applications trainer and at gym. On examination, S1/S2 nl RRR no MCG. CTAB. Abd NT/ND BS+ve Dyspnea on exertion - echocardiogram without apparent causative pathology. XR as noted. Would recommend pulmonary function testing and potentially stress testing as outpatient. DARREL on CKDIII - avoid nephrotoxic medications, repeat labs at follow up. Encourage PO hydration DMII - A1c well controlled at present. resume home management. Follow up with Dr. Maloney @ [facility]. Else see resident documentation as noted. Time spent: 35 minutes. Resident Activity Tracking Resident Involvement: Resident Care Provided Care Provided: Adult Hospital Medicine
== END 2019-11-04 13:19 | disposition home or self-care (01) ==
LOC: ED 11:37 → 4W 11:37 → SUATTDRO 15:37 → 4W 16:47

== ENCOUNTER 2020-09-04 17:25 | Inpatient (IN) ==
[2020-09-04 20:03] LABS: Basophils # (auto) 0.08 K/uL (0-0.2); Basophils % (auto) 0.6 %; Eosinophils # (auto) 1.34 K/uL (0-0.5); Eosinophils % (auto) 9.5 %; Hematocrit (blood only) 37.3 % (37-47); Hemoglobin 11.7 g/dL (12.0-16.0); Immature Granulocytes # (auto) 0.04 K/uL (0.00-0.02); Immature Granulocytes % (auto) 0.3 %; Lymphocytes # (auto) 3.35 K/uL (1.2-3.4); Lymphocytes % (auto) 23.8 %; Mean Corpuscular Hemoglobin 30.2 pg (25-34); Mean Corpuscular Hgb Conc 31.4 g/dL (32-36); Mean Corpuscular Volume 96.1 fL (80-100); Mean Platelet Volume 8.8 fL (7.4-10.4); Monocytes % (auto) 7.1 %; Neutrophils # (auto) 8.27 K/uL (1.4-6.5); Neutrophils % (auto) 58.7 %; Platelet Count 514 K/uL (130-400); RDW Coefficient of Variation 15.1 % (11.5-14.5); RDW Standard Deviation 52.4 fL (36.4-46.3); Red Blood Count 3.88 M/uL (4.2-5.4); White Blood Count 14.08 K/uL (4.8-10.8)
--- NOTE | 2020-09-04 20:03 | Emergency Department Note ---
History of Present Illness General Chief complaint: Weakness Stated complaint: WEAK, DIZZY, FALLING Time Seen by Provider: 09/04/20 19:44 Source: patient History of Present Illness Provider complaint: Generalized weakness Onset (ago): day(s) Location: upper extremity, lower extremity, left and right Severity: moderate Pain Consistency: + intermittent Quality: + other (Weakness) Relieved By: + none Associated symptoms: + headaches (Mild headache) and + shortness of breath (Chronic unchanged); no chest pain, no cough, no fever/chills, no nausea/vomiting and no syncope This is a 80-year-old female who presents with generalized weakness starting August 31. She states that she feels weak all over and not 1 particular extremity or one side of her body. She states that she has fallen about 5 times over the past 2 days. She states that she does not believe the falls are due to weakness but difficulty with her balance. She states that she has been feeling very unsteady on her feet and has difficulty walking in a straight line. This causes her to fall and then she feels too weak to get up off the floor. Each time she has fallen she did not lose consciousness or hit her head. She called her doctor's office who advised her to come here for further evaluation. The patient states that she has had generalized weakness on and off for about a year. She states that she has had problems with her balance for 6 to 7 years. She states that she in fact fell about a month ago and was seen here. She does state that she has a mild headache on top of her head but again states that she did not hit her head. She denies any chest discomfort, neck pain, hip pain, back pain, cough or cold symptoms, fever, vomiting, diarrhea, abdominal pain or black or bloody stools. She denies any known exposure to COVID-19 and had a negative test 8 weeks ago. She does have baseline shortness of breath for about 10 months which is unchanged. She does state that she has kidney problems and sometimes has urinary frequency on an intermittent basis. This is not new for her. She does see Dr. Hernández for kidney problems. She does complain of some urinary frequency. She denies pain on urination. Home Medications Medication Instructions Recorded Confirmed Type acetaminophen [Tylenol Arthritis 650 - 1,300 mg PO Q12H PRN 12/21/18 09/04/20 History Pain] blood sugar diagnostic #250 ea 07/26/19 09/04/20 Rx blood sugar diagnostic #250 ea 07/26/19 09/04/20 Rx blood-glucose sensor #4 ea 08/03/19 09/04/20 Rx blood-glucose transmitter #1 ea 08/03/19 09/04/20 Rx rosuvastatin 10 mg tablet 10 mg PO HS #90 tab 08/03/19 09/04/20 Rx cholecalciferol (vitamin D3) 1,000 unit PO QAM 11/02/19 09/04/20 History [Vitamin D3] latanoprost 0.005 % eye drops 1 drops OP HS 12/27/19 09/04/20 History pen needle, diabetic 32 gauge x #360 ea 01/05/20 09/04/20 Rx " ascorbic acid (vitamin C) 500 mg 500 mg PO QAM 05/03/20 09/04/20 History tablet venlafaxine 75 mg capsule,extended 225 mg PO QAM 90 Days #270 cap 05/18/20 09/04/20 Rx release 24 hr levothyroxine 88 mcg tablet 88 mcg PO QAM #90 tab 07/05/20 09/04/20 Rx insulin lispro 100 unit/mL 70 unit SUBCUT .COMPLEX PRN #21 syr 08/07/20 09/04/20 Rx subcutaneous pen apixaban 5 mg (74 tabs) tablets in 5 mg PO BID #180 ea 08/14/20 09/04/20 Rx a dose pack ketoconazole 2 % shampoo 1 applic TOPICAL .COMPLEX #120 ml 08/14/20 09/04/20 Rx escitalopram oxalate 20 mg tablet 30 mg PO HS #135 tab 08/17/20 09/04/20 Rx insulin glargine 100 unit/mL (3 10 unit SQ HS #9 ml 08/17/20 09/04/20 Rx mL) subcutaneous pen fluticasone propionate 50 2 spray INTRANASAL DAILY PRN #36.4 08/24/20 09/04/20 Rx mcg/actuation nasal ml spray,suspension epoetin veronika [Procrit] 0 unit IV WE 09/04/20 09/04/20 History sennosides [senna] 8.6 mg PO BID PRN 09/04/20 09/04/20 History Allergies Allergy/AdvReac Type Severity Reaction Status Date / Time exenatide Allergy Unknown GI UPSET Verified 08/22/20 11:05 ibuprofen Allergy Unknown GI UPSET Verified 08/22/20 11:05 mirtazapine Allergy Unknown MOUTH/FACIAL Verified 08/22/20 11:05 SWELLING oxycodone Allergy Unknown GI UPSET Verified 08/22/20 11:05 AND IRRITATION Penicillins Allergy Unknown WELTS Verified 08/22/20 11:05 phenol Allergy Unknown GI UPSET Verified 08/22/20 11:05 Sulfa (Sulfonamide Allergy Unknown PT DOESN'T Verified 08/22/20 11:05 Antibiotics) REMEMBER REACTION - MOTHER TOLD PT [place] 5 MCG Pen SOPN Allergy Unknown Unknown Uncoded 08/22/20 11:05 Past Med/Surg History Medical History Amyloidosis KIDNEY Anemia Chronic and stable- Hgb in 11 range since Oct 2019 Balance problem Chronic anticoagulation Diabetes mellitus, type 2 History of diabetic neuropathy B/L LEGS AND FEET. Hyperlipidemia Hypothyroidism Low back pain Lumbar spondylosis Renal insufficiency Follows with nephro- stable creat in 1.90-2.21 range Spinal stenosis of lumbar region Surgical History History of adenoidectomy History of appendectomy History of bone marrow biopsy History of bunionectomy 2+ SURGERIES History of cataract surgery History of cholecystectomy History of colonoscopy History of hysterectomy 1976. TOTAL HYSTER FOR DYSPLASIA History of tonsillectomy B/L History of total hip arthroplasty B/L History of total knee replacement History of total shoulder replacement RIGHT Status post biopsy of kidney Family History Mother Depression Scoliosis Cancer Father Depression Lung cancer Cancer Grandmother Breast cancer Asthma Other Hearing loss Denies family history of Ovarian cancer Prostate cancer Myocardial infarction Colorectal cancer Social History Smoking Status: Former smoker Tobacco Type: Cigarettes packs per day: 2; Years Smoked: 20; Second Hand Exposure: Yes (40 YRS AGO); Hx Alcohol Use: Yes (AA 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 and A total of 10 systems reviewed and were otherwise negative Physical Exam Vital Signs Vital Signs - 24 hr 09/04/20 17:53 09/04/20 19:15 09/04/20 21:30 Temperature 36.7 C Temperature Source Temporal Artery Scan Pulse Rate 93 H Pulse Rate [Right Finger] 88 90 Respiratory Rate 18 20 20 Respiratory Effort / Characteristics Non-Labored Spontaneous Respiratory Depth Normal Normal Normal Blood Pressure 149/87 H Blood Pressure [Right Arm] 180/82 H 165/79 H Blood Pressure Mean 107 Blood Pressure Mean [Right Arm] 114 107 Blood Pressure Position Sitting Blood Pressure Position [Right Arm] Sitting Lying Pulse Oximetry 95 96 98 Oxygen Delivery Method Room Air Room Air Room Air Sepsis Recent Fever Within 48 Hours No Sepsis New/Unexplained Change in Mental Status No Sepsis Action Taken by Nursing No Action Required Constitutional: Vital signs reviewed. Eyes: Pupils are equal round reactive to light. Conjunctiva are noninjected. ENT: Pharynx is clear without erythema or exudate. Mucous membranes are moist. Neck supple without meningeal signs. Respiratory: Clear to auscultation bilaterally. Breath sounds are equal bilaterally. Cardiovascular: Regular rate and rhythm. No rubs or gallops. GI: Soft, nondistended and nontender. Bowel sounds are present. Musculoskeletal: No peripheral edema. No lower extremity tenderness. Integumentary: No cyanosis. or jaundice. Neurologic: The patient is awake and alert. Cranial nerves II-XII are intact. Motor is 5 out of 5 all extremities. Sensation is intact to light touch all extremities. Normal speech. No pronator drift. No limb ataxia. Psychiatric: Normal affect. Not anxious appearing. Course Administered Medications Discontinued Medications Cefepime HCl (Maxipime) 2,000 mg in 20 mls @ 5 mls/min IV NOW STA; Protocol Stop: 09/04/20 21:25 Last Admin: 09/04/20 22:14 Dose: 5 mls/min Documented by: [id number] Medical Decision Making Differential Diagnosis Ataxia, CVA, TIA, intracranial hemorrhage, intracranial mass, metabolic derangement, anemia Medical Records Attestation: I reviewed the patient's medical records. I did perform a limited focused review of portions of the patient's old chart on the electronic medical record. The patient was seen here last month for a hip injury. Home Medications Current Medication List: was personally reviewed by me Laboratory Data Attestation: I reviewed the patient's lab results. Result diagrams: 09/04/20 19:40 09/04/20 19:40 Lab Results 09/04/20 09/04/20 09/04/20 Range/Units 19:40 19:40 19:40 WBC 14.08 H (4.8-10.8) K/uL RBC 3.88 L (4.2-5.4) M/uL Hgb 11.7 L (12.0-16.0) g/dL Hct 37.3 (37-47) % MCV 96.1 (80-100) fL MCH 30.2 (25-34) pg MCHC 31.4 L (32-36) g/dL RDW Std Deviation 52.4 H (36.4-46.3) fL RDW Coeff of Iban 15.1 H (11.5-14.5) % Plt Count 514 H (130-400) K/uL MPV 8.8 (7.4-10.4) fL Immature Gran % (Auto) 0.3 % Neut % (Auto) 58.7 % Lymph % (Auto) 23.8 % Nicholas % (Auto) 7.1 % Eos % (Auto) 9.5 % Baso % (Auto) 0.6 % Neut # (Auto) 8.27 H (1.4-6.5) K/uL Lymph # (Auto) 3.35 (1.2-3.4) K/uL Nicholas # (Auto) 1.00 H (0.11-0.59) K/uL Eos # (Auto) 1.34 H (0-0.5) K/uL Baso # (Auto) 0.08 (0-0.2) K/uL Immature Gran # (Auto) 0.04 H (0.00-0.02) K/uL PT 10.7 (9.0-12.0) Seconds INR 1.0 (0.9-1.1) APTT 24.8 (21.0-31.0) Seconds PTT Ratio 0.9 Sodium 139 (136-145) mmol/L Potassium 4.0 (3.5-5.1) mmol/L Chloride 105 (98-107) mmol/L Carbon Dioxide 27 (21-32) mmol/L Anion Gap 7.0 (3-11) BUN 54 H (7-18) mg/dl Creatinine 2.11 H (0.6-1.2) mg/dl Est Cr Clr Drug Dosing Not Reportable Est GFR ( Amer) 25.3 Est GFR (Non-Af Amer) 21.9 BUN/Creatinine Ratio 25.7 H (10-20) Glucose 159 H (70-99) mg/dl Lactate (0.4-2.0) mmol/L Calcium 10.3 H (8.5-10.1) mg/dl Magnesium 2.3 (1.8-2.4) mg/dl Total Bilirubin 0.3 (0.2-1) mg/dl AST 18 (15-37) U/L ALT 22 (12-78) U/L Alkaline Phosphatase 75 (45-117) U/L Troponin I < 0.015 (0-0.045) ng/ml Total Protein 7.8 (6.4-8.2) gm/dl Albumin 3.8 (3.4-5.0) gm/dl Globulin 4.0 (2.5-4.0) gm/dl Albumin/Globulin Ratio 1.0 (0.9-2) Urine Color Urine Appearance (Clear) Urine pH (4.5-7.5) Ur Specific [place] (1.000-1.030) Urine Protein (Negative) Urine Glucose (UA) (Negative) Urine Ketones (Negative) Urine Blood (Negative) Urine Nitrite (Negative) Urine Bilirubin (Negative) Urine Urobilinogen (Negative) Ur Leukocyte Esterase (Negative) Urine WBC (Auto) (0-5) /hpf Urine RBC (Auto) (0-4) /hpf U Hyaline Cast (Auto) (0-5) /lpf U Epithel Cells (Auto) (0-5) /lpf Urine Bacteria (Auto) (Negative) SARS-CoV-2 Ag (Rapid) (Negative) 09/04/20 09/04/20 09/04/20 Range/Units 19:40 20:52 21:54 WBC (4.8-10.8) K/uL RBC (4.2-5.4) M/uL Hgb (12.0-16.0) g/dL Hct (37-47) % MCV (80-100) fL MCH (25-34) pg MCHC (32-36) g/dL RDW Std Deviation (36.4-46.3) fL RDW Coeff of Iban (11.5-14.5) % Plt Count (130-400) K/uL MPV (7.4-10.4) fL Immature Gran % (Auto) % Neut % (Auto) % Lymph % (Auto) % Nicholas % (Auto) % Eos % (Auto) % Baso % (Auto) % Neut # (Auto) (1.4-6.5) K/uL Lymph # (Auto) (1.2-3.4) K/uL Nicholas # (Auto) (0.11-0.59) K/uL Eos # (Auto) (0-0.5) K/uL Baso # (Auto) (0-0.2) K/uL Immature Gran # (Auto) (0.00-0.02) K/uL PT (9.0-12.0) Seconds INR (0.9-1.1) APTT (21.0-31.0) Seconds PTT Ratio Sodium (136-145) mmol/L Potassium (3.5-5.1) mmol/L Chloride (98-107) mmol/L Carbon Dioxide (21-32) mmol/L Anion Gap (3-11) BUN (7-18) mg/dl Creatinine (0.6-1.2) mg/dl Est Cr Clr Drug Dosing Est GFR ( Amer) Est GFR (Non-Af Amer) BUN/Creatinine Ratio (10-20) Glucose (70-99) mg/dl Lactate 1.3 (0.4-2.0) mmol/L Calcium (8.5-10.1) mg/dl Magnesium (1.8-2.4) mg/dl Total Bilirubin (0.2-1) mg/dl AST (15-37) U/L ALT (12-78) U/L Alkaline Phosphatase (45-117) U/L Troponin I (0-0.045) ng/ml Total Protein (6.4-8.2) gm/dl Albumin (3.4-5.0) gm/dl Globulin (2.5-4.0) gm/dl Albumin/Globulin Ratio (0.9-2) Urine Color Yellow Urine Appearance Cloudy A (Clear) Urine pH 5.0 (4.5-7.5) Ur Specific [place] 1.021 (1.000-1.030) Urine Protein Negative (Negative) Urine Glucose (UA) Negative (Negative) Urine Ketones Negative (Negative) Urine Blood Negative (Negative) Urine Nitrite Negative (Negative) Urine Bilirubin Negative (Negative) Urine Urobilinogen Negative (Negative) Ur Leukocyte Esterase 2+ H (Negative) Urine WBC (Auto) >30 H (0-5) /hpf Urine RBC (Auto) 0-4 (0-4) /hpf U Hyaline Cast (Auto) 1-5 (0-5) /lpf U Epithel Cells (Auto) >30 H (0-5) /lpf Urine Bacteria (Auto) 4+ H (Negative) SARS-CoV-2 Ag (Rapid) Negative (Negative) Imaging Data Radiologist's Impression: CT OF THE HEAD WITHOUT CONTRAST CLINICAL HISTORY: Ataxia. Evaluate for stroke. COMPARISON STUDY: Head CT February 20, 2018. MRI of the brain November 09, 2018. CT DOSE: 537.48 mGy.cm TECHNIQUE: Helical axial images of the head were obtained without IV contrast. Automated exposure control was utilized for the study. A dose lowering technique was utilized adhering to the principles of ALARA. FINDINGS: No acute intracranial hemorrhage, midline shift or mass effect is present. The ventricular system is stable. White matter hypodensities favor small vessel disease. The basal cisterns are patent. No extra-axial collections are present. There are no findings to suggest acute dural sinus thrombosis or acute territorial infarct. No significant calvarial abnormalities are present. Visualized portions of the sinuses and mastoid air cells are clear. IMPRESSION: No acute intracranial findings. ACT 112: Negative or not required by law. Electronically signed by: Delmer Haile M.D. 09/04/2020 8:29 PM Dictated: 09/04/202026 Transcribed: 09/04/202026 XR chest 1V portable CLINICAL HISTORY: Shortness of breath. COMPARISON STUDY: Chest radiograph July 25, 2020. FINDINGS: Right shoulder arthroplasty is incidentally noted. Lung volumes are at the lower limits of normal. This is unchanged. There is no consolidation or evidence for pulmonary edema. Cardiomediastinal silhouette is stable. Appearance of the chest is unchanged. IMPRESSION: No acute cardiopulmonary findings. No change in appearance of the chest. ACT 112: Negative or not required by law. Electronically signed by: Delmer Haile M.D. 09/04/2020 8:18 PM Dictated: 09/04/202015 Transcribed: 09/04/202015 ECG Data Attestation: I personally reviewed and interpreted this ECG as follows: Indication: + weakness Rate (beats per minute): 90 Rhythm: + normal sinus ECG Intervals/blocks: + Normal QT ECG ST segments: no ST elevation ECG Findings: + LVH; no PVCs MDM Narrative I did evaluate the patient as noted above. The patient is presenting with generalized weakness since August 31. The patient has had a total of 5 falls within the past 2 days due to weakness and loss of balance. She does state that she has had a balance problem for the past 6 to 7 years and has difficulty walking in a straight line. She is on blood thinners but states that she did not hit her head. IV access was established. I did place an order for continuous cardiac monitoring. The monitor showed normal sinus rhythm at a rate of 90 bpm. I did order and personally review the patient's 12-lead EKG as described above. She has no evidence of acute ischemia. I did order and personally reviewed the images of the patient's chest x-ray as described above. There is no evidence of pneumonia. I did order a urine analysis. She does have a UTI. I did order and review the patient's blood work as noted in the electronic medical record. Her white count is elevated. She is slightly anemic. Creatinine is stable at 2.1. Electrolytes are unremarkable. I did order blood cultures. I did treat the patient with cefepime 2 g IV. She does state that she has taken cephalosporins in the past without allergy. Covid testing was negative. I did order a CT of the head. I did review the images myself as well as the radiology report as described above. There is no evidence of CVA. I did discuss the test results with the patient. She is agreeable to hospitalization. I did discuss the case with the hospitalist and rifle case repairer. Impression & Plan Generalized weakness, Anemia, Acute UTI, Chronic kidney disease, Anticoagulated, Frequent falls Discharge Plan Visit Data Chief Complaint: Weakness Stated Complaint: WEAK, DIZZY, FALLING ED Provider: Osorio Diggs Discharge Problem: Generalized weakness, Anemia, Acute UTI, Chronic kidney disease, Anticoagulated, Frequent falls Patient Disposition: Being Evaluated by Hospitalist Forms Stand Alone Forms: [facility] Prescriptions Prescriptions: No Action (DME) Contour Next Test Strips strip See Rx Instructions .ROUTE .MEDSUPPLY Qty: 250 RF: 6 (DME) Contour Next Test Strips strip See Rx Instructions .ROUTE .MEDSUPPLY Qty: 250 RF: 6 (DME) Dexcom G5 Transmitter device See Rx Instructions .ROUTE .MEDSUPPLY Qty: 1 RF: 6 (DME) Dexcom G5-G4 Sensor device See Rx Instructions .ROUTE .MEDSUPPLY Qty: 4 RF: 6 rosuvastatin 10 mg tablet 10 mg PO HS Qty: 90 RF: 3 (DME) pen needle, diabetic [BD Ultra-Fine Vera Pen Needle] 32 gauge x 5/32" needle See Dose Instructions .ROUTE .MEDSUPPLY Qty: 360 RF: 3 venlafaxine [Effexor XR] 75 mg capsule,extended release 24hr 225 mg PO QAM 90 Days Qty: 270 RF: 3 levothyroxine 88 mcg tablet 88 mcg PO QAM Qty: 90 RF: 3 insulin lispro [Humalog KwikPen Insulin] 100 unit/mL insulin pen 70 unit SUBCUT .COMPLEX PRN (Reason: Diabetes II ) Qty: 21 RF: 1 apixaban 5 mg (74 tabs) tablets,dose pack 5 mg PO BID Qty: 180 RF: 3 fluticasone propionate [Flonase Allergy Relief] 50 mcg/actuation spray,suspension 2 spray INTRANASAL DAILY PRN (Reason: Allergy Symptoms) Qty: 36.4 RF: 1 Hold Instructions: replaced by Xhance ascorbic acid (vitamin C) 500 mg tablet 500 mg PO QAM RF: 0 latanoprost 0.005 % drops 1 drops OP HS RF: 0 Lantus Solostar U-100 Insulin 100 unit/mL (3 mL) insulin pen 10 unit SQ HS Qty: 9 RF: 3 escitalopram oxalate [Lexapro] 20 mg tablet 30 mg PO HS Qty: 135 RF: 3 ketoconazole 2 % shampoo 1 applic topical .COMPLEX Qty: 120 RF: 2 cholecalciferol (vitamin D3) [Vitamin D3] 25 mcg (1,000 unit) Capsule 1,000 unit PO QAM RF: 0 acetaminophen [Tylenol Arthritis Pain] 650 mg Tablet Extended Release 650 - 1,300 mg PO Q12H PRN (Reason: Pain) RF: 0 Procrit 2,000 unit/mL Solution 0 unit IV WE RF: 0 senna 8.6 mg capsule 8.6 mg PO BID PRN (Reason: Constipation) RF: 0 Referrals Referrals: Piper Prince CRNP [Primary Care Provider] -
[2020-09-04 20:14] LABS: Partial Thromboplastin Ratio 0.9; Partial Thromboplastin Time 24.8 Seconds (21.0-31.0); Prothrombin Time 10.7 Seconds (9.0-12.0)
--- NOTE | 2020-09-04 20:20 | XRay Report ---
XR chest 1V portable CLINICAL HISTORY: Shortness of breath. COMPARISON STUDY: Chest radiograph July 25, 2020. FINDINGS: Right shoulder arthroplasty is incidentally noted. Lung volumes are at the lower limits of normal. This is unchanged. There is no consolidation or evidence for pulmonary edema. Cardiomediastin al silhouette is stable. Appearance of the chest is unchanged. IMPRESSION: No acute cardiopulmonary findings. No change in appearance of the chest. ACT 112: Negative or not required by law. Electronically signed by: Delmer Haile M.D. 09/04/2020 8:18 PM
[2020-09-04 20:24] LABS: Alanine Aminotransferase 22 U/L (12-78); Albumin Level 3.8 gm/dl (3.4-5.0); Aspartate Aminotransferase 18 U/L (15-37); BUN Creatinine Ratio 25.7 (10-20); Blood Urea Nitrogen 54 mg/dl (7-18); Calcium 10.3 mg/dl (8.5-10.1); Carbon Dioxide 27 mmol/L (21-32); Chloride 105 mmol/L (98-107); Est GFR (African American) 25.3; Est GFR (Non-African American) 21.9; Glucose 159 mg/dl (70-99); Magnesium 2.3 mg/dl (1.8-2.4); Sodium 139 mmol/L (136-145)
[2020-09-04 20:28] LABS: Alkaline Phosphatase 75 U/L (45-117); Bilirubin,Total 0.3 mg/dl (0.2-1); Total Protein 7.8 gm/dl (6.4-8.2); Troponin I < 0.015 ng/ml (0-0.045)
[2020-09-04 20:29] LABS: Appearance Urine Cloudy (Clear); Bacteria Urine Automated 4+ (Negative); Bilirubin Urine Negative (Negative); Blood Urine Negative (Negative); Color Urine Yellow; Epithelial Cell Urine Auto >30 /lpf (0-5); Glucose Urine UA Negative (Negative); Ketones Urine Negative (Negative); Leukocyte Esterase Urine 2+ (Negative); Nitrite Urine Negative (Negative); Protein Urine Negative (Negative); RBC Urine Automated 0-4 /hpf (0-4); Specific Gravity Urine 1.021 (1.000-1.030); Urobilinogen Urine Negative (Negative); WBC Urine Automated >30 /hpf (0-5)
--- NOTE | 2020-09-04 20:31 | CT Scan Report ---
CT OF THE HEAD WITHOUT CONTRAST CLINICAL HISTORY: Ataxia. Evaluate for stroke. COMPARISON STUDY: Head CT February 20, 2018. MRI of the brain November 09, 2018. CT DOSE: 537.48 mGy.cm TECHNIQUE: Helical axial images of the head were obtained without IV contrast. Automated exposure con trol was utilized for the study. A dose lowering technique was utilized adhering to the principles o f ALARA. FINDINGS: No acute intracranial hemorrhage, midline shift or mass effect is present. The ventricular system is stable. White matter hypodensities favor small vessel disease. The basal cisterns are paten t. No extra-axial collections are present. There are no findings to suggest acute dural sinus thrombo sis or acute territorial infarct. No significant calvarial abnormalities are present. Visualized port ions of the sinuses and mastoid air cells are clear. IMPRESSION: No acute intracranial findings. ACT 112: Negative or not required by law. Electronically signed by: Delmer Haile M.D. 09/04/2020 8:29 PM
[2020-09-04] MEDS ORDERED: CEFEPIME 2,000 MG/20 ML VIAL IV STA (21:22)
[2020-09-05] MEDS ORDERED: ACETAMINOPHEN 325 MG TAB PO PRN ×2 (02:30→16:39)
[2020-09-05] MEDS ORDERED: SENNA 8.6 MG TAB PO PRN (02:30)
[2020-09-05] MEDS ORDERED: POLYETHYLENE (MIRALAX) 17 GM PACK PO PRN (02:30)
--- NOTE | 2020-09-05 03:15 | History and Physical Report ---
DATE OF ADMISSION: 09/05/2020 CHIEF COMPLAINT: Weakness and falls. HISTORY OF PRESENT ILLNESS: This is a 80-year-old female with past medical history significant for pulmonary embolism 2 months ago, on Eliquis; chronic back pain, renal amyloidosis, renal insufficiency, type 2 diabetes, anemia, history of anxiety and depression, who presents with weakness and falls. The patient states since 09/2019, she is having ongoing weakness and imbalance and shortness of breath, but last few days, her weakness got worse and she is falling frequently that is the reason she came to the ER and found to have urinary tract infection. The patient is also having increased frequency of micturition, but denies any burning micturition, no blood in the urine. No fevers. Has cough that is going on for several months and she has mild loss of sense of smell or taste, but that has been going on for last 6 months. Appetite is not that great. Denies any chest pain, currently no shortness of breath. Currently, no headache, no blurred visions. Has some ear pain in the right ear pinna that is there for some time. Currently, no runny nose, no sore throat, no nausea, no vomiting, no abdominal pain, constipated. No blood in the stools or black stools. Has some swelling in the legs, ambulates ok. ALLERGIES: EXENATIDE, IBUPROFEN, MIRTAZAPINE, OXYCODONE, PENICILLIN, PHENOL, SULFA ANTIBIOTICS, BYETTA. PAST MEDICAL HISTORY: As mentioned above. PAST SURGICAL HISTORY: Appendectomy, adenoidectomy, bone marrow biopsy, bunionectomy, cataract surgery, cholecystectomy, colonoscopy, hysterectomy, tonsillectomy, total hip arthroplasty, total knee replacement, total shoulder replacement, status post biopsy of the kidney. FAMILY HISTORY: Significant for mother had depression and scoliosis, cancer. Father had depression, lung cancer. Grandmother had breast cancer, asthma. SOCIAL HISTORY: Former smoker, history of alcoholism present. No substance abuse as per records. MEDICATIONS: The patient is on Tylenol Arthritis pain 650 mg p.o. q. 12 hours p.r.n., apixaban 5 mg p.o. b.i.d., ascorbic acid 500 mg p.o. a.m., vitamin D 1000 units p.o. a.m., Procrit shots as directed, Lexapro 30 mg p.o. at bedtime, Flonase 2 sprays intranasal daily p.r.n., insulin glargine 10 units subcutaneous at bedtime, insulin, lisinopril dose as directed, ketoconazole 2% shampoo, latanoprost 0.005% ophthalmic drops at bedtime, levothyroxine 88 mcg p.o. daily, lovastatin 10 mg p.o. at bedtime, senna 8.6 mg p.o. b.i.d. p.r.n., venlafaxine 225 mg p.o. q.a.m. REVIEW OF SYSTEMS: As per HPI. Rest of review of systems negative. PHYSICAL EXAMINATION: GENERAL: The patient is of moderate built, not in acute distress. VITAL SIGNS: Temperature 36.7, pulse 89, respiratory rate 18, blood pressure 129/79, oxygen 96% room air. HEENT: Pupils equal, round, reactive to light. Oral mucosa moist. NECK: No neck masses seen. CARDIOVASCULAR: S1, S2, regular rate and rhythm, no murmur, no gallop. RESPIRATORY SYSTEM: Normal AP diameter. No accessory muscle use. No wheezing, no crackles. ABDOMEN: Soft, bowel sounds present, nontender. No distention. CENTRAL NERVOUS SYSTEM: Cranial nerves II-XII grossly intact. Nonfocal. EXTREMITIES: Mild pedal edema present. LABORATORY DATA: WBC 14, hemoglobin 11.7, hematocrit 37.3, platelets 514. PT 20.7, INR 1, APTT 24.8. Sodium 139, potassium 4, chloride 105, bicarbonate 27, BUN 54, creatinine 2.1, serum glucose 159. Lactate 1.3, calcium 10.3, magnesium 2.3, total bilirubin 0.3, AST 18, ALT 22, alkaline phosphatase 75. Troponin I less than 0.015. Urinalysis, cloudy, +2 leukocyte esterase, +4 bacteria. SARS-CoV-2 antigen negative. IMAGING: CT of the head, no acute intracranial findings. Chest x-ray, no acute findings. EKG: Normal sinus rhythm, rate of 90, possible left atrial enlargement, left ventricular hypertrophy. No significant change was found. ASSESSMENT AND PLAN: This is a 80-year-old female who presents with ongoing weakness and shortness of breath and cough. presented with increasing weakness and falls and found a urinary tract infection. 1. Increasing weakness and falls, is most likely secondary to urinary tract infection.Has leukocytosis. ER started on IV cefepime, which we will continue and follow the cultures. 3.Chronic weakness PT and OT when stable. 2. Chronic kidney disease stage IV. Baseline creatinine around 2,presented with creatinine 2.1. We will follow the labs. 3. Diabetes. Continue home Lantus, insulin sliding scale and follow the blood sugars. 4. Anemia of chronic kidney disease. Hemoglobin 11.7, Procrit shots. 5. Hypothyroidism. Continue Synthroid. 6. Depression. Continue her home venlafaxine and Lexapro. To recheck with patient if taking both the meds and dosing. 7. Hyperlipidemia . On statin. 8. Pulmonary embolism, on Eliquis. 9. Deep venous thrombosis prophylaxis, on Eliquis. DISPOSITION: Monitor in medical floor. PT and OT prior to discharge. Social service to help with discharge planning. Level 1 full code. MTDD
[2020-09-05] MEDS ORDERED: CEFEPIME CONSULT ACTIVE PRN (03:39)
[2020-09-05] MEDS ORDERED: GLUCOSE 10 TABS/TUBE PO PRN (03:45)
[2020-09-05] MEDS ORDERED: CARBOHYDRATES FOR HYPOGLYCEMIA PO PRN (03:45)
[2020-09-05] MEDS ORDERED: GLUCOSE 40% GEL 15 GM TUBE PO PRN (03:45)
[2020-09-05] MEDS ORDERED: DEXTROSE 50% 50 ML SYRINGE IV PRN (03:45)
[2020-09-05] MEDS ORDERED: GLUCAGON FOR INJ 1 MG VIAL IM PRN (03:45)
[2020-09-05] MEDS: LEVOTHYROXINE SODIUM 88 MCG TABLET PO SCH (05:52)
[2020-09-05] MEDS ORDERED: SODIUM CHLORIDE 0.9% 1000ML 1,000 ML IV SCH (07:15)
[2020-09-05] MEDS: CHOLECALCIFEROL 1,000 UNITS 25 MCG TAB PO SCH (07:56)
[2020-09-05] MEDS: ASCORBIC ACID 500 MG TAB PO SCH (07:56)
[2020-09-05] MEDS: VENLAFAXINE HCL XR 75 MG CAPXR PO SCH (07:56)
[2020-09-05] MEDS: APIXABAN 5 MG TABLET PO SCH ×2 (07:56→21:28)
[2020-09-05 08:05] LABS: Basophils # (auto) 0.06 K/uL (0-0.2); Basophils % (auto) 0.6 %; Eosinophils % (auto) 11.1 %; Hematocrit (blood only) 32.2 % (37-47); Hemoglobin 10.3 g/dL (12.0-16.0); Immature Granulocytes # (auto) 0.01 K/uL (0.00-0.02); Immature Granulocytes % (auto) 0.1 %; Lymphocytes # (auto) 2.28 K/uL (1.2-3.4); Lymphocytes % (auto) 21.1 %; Mean Corpuscular Hemoglobin 30.4 pg (25-34); Mean Platelet Volume 8.8 fL (7.4-10.4); Monocytes % (auto) 9.2 %; Neutrophils # (auto) 6.28 K/uL (1.4-6.5); Neutrophils % (auto) 57.9 %; Platelet Count 446 K/uL (130-400); RDW Standard Deviation 51.7 fL (36.4-46.3); Red Blood Count 3.39 M/uL (4.2-5.4); White Blood Count 10.83 K/uL (4.8-10.8)
[2020-09-05 08:18] LABS: Estimated Average Glucose 137 mg/dl; Hemoglobin A1C 6.4 % (4.5-5.6)
[2020-09-05] MEDS: INSULIN ASPART 100 UNITS/ML 3 ML PEN SC SCH ×4 (08:33→21:43)
[2020-09-05 08:34] LABS: BUN Creatinine Ratio 27.2 (10-20); Calcium 9.5 mg/dl (8.5-10.1); Creatinine Clr Calc Pharmacy 25.2 ml/min; Est GFR (Non-African American) 24.2; Magnesium 2.1 mg/dl (1.8-2.4); Potassium 3.8 mmol/L (3.5-5.1)
[2020-09-05] MEDS ORDERED: HEPARIN SOD 5,000 UNIT/0.5 ML VIAL SQ SCH (09:00)
--- NOTE | 2020-09-05 09:25 | Hospitalist Progress Note ---
Date of Service September 05, 2020 Assessment & Plan (1) Generalized weakness: -This is a patient who follows with [facility] primary care and currently under the care of [facility] hospitalist team at [facility] group request. Patient was admitted after 09/04/2020 ED presentation generalized weakness starting August 31. She states that she feels weak all over and not 1 particular extremity or one side of her body. She states that she has fallen about 5 times over the past [address] Harry treating for urinary tract infection with antibiotics. On my exam on 09/05/2020 patient denies fever of dysuria at home, or dizziness when she walks at home. She is breathing comfortably on room air and denies current shortness of breath. She denies other symptoms of pain. No other other positive symptoms on review of systems -continue antibiotics for UTI -PT/OT evaluations (2) Acute UTI: -management with empirically started cefepime Chronic kidney disease stage IV. -Baseline creatinine around 2,presented with creatinine 2.1. We will follow the labs. Diabetes Type 2 Mellitus with [facility] Current of Insulin Anemia of chronic kidney disease -receives outpatient Procrit injections. Patient follows with [facility] Hematology Hypothyroidism - Continue Synthroid. Hyperlipidemia - On statin. Depression -On venlafaxine and Lexapro History of Pulmonary embolism in the Past -on Eliquis. Admission and Anticipated Discharge Date Admission Date: September 05, 2020 Subjective This is a patient who follows with [facility] and currently under the care of [facility] hospitalist team at [facility] group request. Patient was admitted after 09/04/2020 ED presentation generalized weakness starting August 31. She states that she feels weak all over and not 1 particular extremity or one side of her body. She states that she has fallen about 5 times over the past [address] Harry treating for urinary tract infection with antibiotics. On my exam on 09/05/2020 patient denies fever of dysuria at home, or dizziness when she walks at home. She is breathing comfortably on room air and denies current shortness of breath. She denies other symptoms of pain. No other other positive symptoms on review of systems Review of Systems Review of Systems: All systems reviewed & are unremarkable except as noted in Subjective Physical Exam Constitutional: cooperative and comfortable Eyes: PERRL, conjunctivae normal, anicteric sclerae EOM intact bilaterally ENMT: external ear and nose normal, oropharynx normal Neck: normal visual inspection Respiratory: normal respiratory effort, lungs clear to auscultation Cardiovascular: Rate/Rhythm: regular rate Gastrointestinal (Abdomen): normal bowel sounds, soft, nontender, no hepatosplenomegaly Musculoskeletal: Head/Neck/Chest: normocephalic and head atraumatic Neurologic: PERRL, EOMI, accommodation nl, no face palsy, no dysarthria Psychiatric: A+Ox3, euthymic affect Results & Data Results & Data ([facility]) Vital Signs (Past 12 Hours) Vital Signs Temp Pulse Pulse Resp BP Pulse Ox 09/05/20 07:00 36.5 C 89 18 166/78 H 96 09/05/20 01:50 36.8 C 97 H 18 151/85 H 94 09/05/20 01:00 88 89 16 129/79 98 09/04/20 23:00 89 20 170/88 H 96 09/04/20 21:30 90 20 165/79 H 98
--- NOTE | 2020-09-05 12:47 | Electrocardiogram Report ---
Test Reason : Blood Pressure : / mmHG Vent. Rate : 090 BPM Atrial Rate : 090 BPM P-R Int : 152 ms QRS Dur : 080 ms QT Int : 362 ms P-R-T Axes : 046 -21 039 degrees QTc Int : 442 ms Normal sinus rhythm Possible Left atrial enlargement Left ventricular hypertrophy Abnormal ECG When compared with ECG of 25-JUL-2020 17:55, No significant change was found Confirmed by Raul Win ([id number]) on 09/05/2020 12:47:19 PM Referred By: REFERRED SELF Confirmed By:Iker Win
[2020-09-05] MEDS ORDERED: DOCUSATE SODIUM 100 MG CAP PO ONE (16:37)
[2020-09-05] MEDS ORDERED: CEFEPIME 1,000 MG in SYRINGE 0 ML IV SCH (20:00)
[2020-09-05] MEDS ORDERED: INSULIN GLARGINE SOLOSTAR 100 UNITS/ML 3 ML PEN SQ SCH (21:00)
[2020-09-05] MEDS: ROSUVASTATIN CALCIUM 10 MG TAB PO SCH (21:28)
[2020-09-05] MEDS: ESCITALOPRAM OXALATE 10 MG TAB PO SCH (21:28)
[2020-09-05] MEDS: LATANOPROST 0.005% OP SOLN 2.5 ML BTL OP SCH (21:28)
[2020-09-05] MEDS: DOCUSATE SODIUM 100 MG CAP PO SCH (21:28)
[2020-09-06] MEDS: LEVOTHYROXINE SODIUM 88 MCG TABLET PO SCH (06:33)
[2020-09-06 07:36] LABS: Basophils # (auto) 0.05 K/uL (0-0.2); Basophils % (auto) 0.5 %; Eosinophils # (auto) 1.13 K/uL (0-0.5); Eosinophils % (auto) 10.3 %; Hematocrit (blood only) 34.5 % (37-47); Hemoglobin 10.9 g/dL (12.0-16.0); Immature Granulocytes # (auto) 0.02 K/uL (0.00-0.02); Immature Granulocytes % (auto) 0.2 %; Lymphocytes # (auto) 2.48 K/uL (1.2-3.4); Lymphocytes % (auto) 22.5 %; Mean Corpuscular Hemoglobin 29.8 pg (25-34); Mean Corpuscular Hgb Conc 31.6 g/dL (32-36); Mean Corpuscular Volume 94.3 fL (80-100); Monocytes # (auto) 0.85 K/uL (0.11-0.59); Monocytes % (auto) 7.7 %; Neutrophils # (auto) 6.47 K/uL (1.4-6.5); Neutrophils % (auto) 58.8 %; Platelet Count 437 K/uL (130-400); RDW Coefficient of Variation 14.6 % (11.5-14.5); RDW Standard Deviation 50.1 fL (36.4-46.3); Red Blood Count 3.66 M/uL (4.2-5.4)
[2020-09-06 08:02] LABS: Albumin Level 3.3 gm/dl (3.4-5.0); BUN Creatinine Ratio 26.6 (10-20); Calcium 9.7 mg/dl (8.5-10.1); Creatinine Clr Calc Pharmacy 24.7 ml/min; Est GFR (African American) 27.4; Est GFR (Non-African American) 23.6; Potassium 3.8 mmol/L (3.5-5.1)
[2020-09-06 08:05] LABS: Bilirubin,Total 0.3 mg/dl (0.2-1); Globulin 3.4 gm/dl (2.5-4.0); Total Protein 6.7 gm/dl (6.4-8.2)
[2020-09-06] MEDS: DOCUSATE SODIUM 100 MG CAP PO SCH ×2 (08:42→21:15)
[2020-09-06] MEDS: CHOLECALCIFEROL 1,000 UNITS 25 MCG TAB PO SCH (08:42)
[2020-09-06] MEDS: APIXABAN 5 MG TABLET PO SCH ×2 (08:43→18:13)
[2020-09-06] MEDS: VENLAFAXINE HCL XR 75 MG CAPXR PO SCH (08:43)
[2020-09-06] MEDS: ASCORBIC ACID 500 MG TAB PO SCH (08:43)
[2020-09-06] MEDS: INSULIN ASPART 100 UNITS/ML 3 ML PEN SC SCH ×4 (08:45→21:21)
[2020-09-06] MEDS ORDERED: PHARMACY GLYCEMIC MGMT CONSULT PRN (09:28)
[2020-09-06] MEDS ORDERED: INSULIN GLARGINE SOLOSTAR 100 UNITS/ML 3 ML PEN SC STA (10:09)
--- NOTE | 2020-09-06 10:18 | Pharmacy Report ---
Pharmacy Glycemic Short Note 2 - Date of Service September 06, 2020 - Glycemic Short BSG Results (Last 24 hours): 09/05/20 09/05/20 09/05/20 12:07 17:08 20:39 Glucose POC Glucose 273 H 251 H 251 H 09/06/20 09/06/20 06:44 08:09 Glucose 252 H POC Glucose 264 H OUTPATIENT ANTIDIABETIC REGIMEN: * Lantus 10 units SC HS * Novolog 14 units AM, 28 units Lunch, 20 units PM + SSI as needed RISK FACTORS FOR INSULIN RESISTANCE: * UTI on Cefepime * T2DM diet ordered ASSESSMENT: * Amaris is a 80 yo F admitted on the evening of 09/04 secondary to progressive weakness and falls at home. Primary team managed BSGs on 09/04 and 09/05. Pharmacy was consulted on this morning for inpatient glycemic management. Patient's home insulin regimen is very bolus heavy so will attempt a more 50/50 basal/bolus regimen while inpatient * She did not receive a dose of basal insulin on the evening of 09/04. Yesterday she received 35 units of insulin total, 10 of which were basal insulin. Her BSGs were [id number] mg/dL - uncontrolled. This is likely secondary to basal deficiency. * Fasting BSG this morning was 264 mg/dL - uncontrolled * Will give a one time basal insulin dose now to help with basal deficiency. * CF/CR were tightened by primary team this AM. Will continue with these parameters for now. PLAN FOR INPATIENT GLYCEMIC CONTROL: * Basal insulin - increased * Lantus 15 units SQ x 1 now * Lantus scale this evening to provide up to 10 units per BSG * Bolus insulin - tightened this AM by primary team * NovoLog per scale ACHS or Q6hrs while NPO * Goal Range: Low 110 mg/dL - High 140 mg/dL * Correction Factor: 20 mg/dL/unit * Nutritional / Prandial insulin per carb ratio of 1 unit per 6 grams CHO consumed PLAN FOR DISCHARGE: * A1c of 6.4% demonstrates excellent outpatient control of T2DM. Given patient's age and comorbidities, an acceptable A1c would be < 8%. May consider decreasing outpatient dose upon discharge to prevent any hypoglycemia that may be contributing to weakness/falls.
[2020-09-06] MEDS ORDERED: cefTRIAXone SODIUM 2,000 MG in DEXTROSE 5% 50 ML IV SCH (20:00)
[2020-09-06] MEDS ORDERED: COUGH DROP (SUGAR FREE) LOZ 24 LOZ/1 BOX BUCCAL PRN (20:11)
[2020-09-06] MEDS ORDERED: COUGH DROP (SUGAR FREE) LOZ 24 LOZ/1 BOX BUCCAL ONE (20:15)
[2020-09-06] MEDS ORDERED: INSULIN GLARGINE SOLOSTAR 100 UNITS/ML 3 ML PEN SQ SCH (21:00)
[2020-09-06] MEDS: ESCITALOPRAM OXALATE 10 MG TAB PO SCH (21:15)
[2020-09-06] MEDS: ROSUVASTATIN CALCIUM 10 MG TAB PO SCH (21:15)
[2020-09-06] MEDS: LATANOPROST 0.005% OP SOLN 2.5 ML BTL OP SCH (21:16)
[2020-09-06] MEDS: FLUTICASONE PROPIONATE NA SPR 16 GM BTL PRN (21:17)
--- NOTE | 2020-09-06 22:06 | Hospitalist Progress Note ---
Date of Service delayed entry date of service noted below September 06, 2020 Assessment & Plan (1) Generalized weakness: -clinically improving -urine culture pending -continue empiric antibiotic for UTI -PT/OT evaluation (2) Acute UTI: - per above Chronic kidney disease stage IV. -crea stable Diabetes Type 2 Mellitus with [facility] Current of Insulin - continue Insulin monitor BSG Anemia of chronic kidney disease -receives outpatient Procrit injections. Patient follows with [facility] Hematology Hypothyroidism - Continue Synthroid. Hyperlipidemia - On statin. Depression -On venlafaxine and Lexapro History of Pulmonary embolism in the Past -on Eliquis. Admission and Anticipated Discharge Date Admission Date: September 05, 2020 Subjective ff up for weakness, UTI seen resting in bed, comfortable not in distress states she feels improved compared to admission denies abdominal pain, nausea, fever/chills, urinary symptoms denies chest pain, dyspnea, palpitations reports left knee pain after falling no other pain her body no other symptoms Review of Systems Review of Systems: All systems reviewed & are unremarkable except as noted in Subjective Physical Exam Physical Exam: General- oriented x 3, not in distress, speaks in sentences with no effort or accessory muscle use Head- atraumatic Eyes- PERRL, EOMI, anicteric ENT- oropharynx clear Neck- supple, no JVD, no adenopathy, no thyromegaly; carotids +2/2, no bruits appreciated Lungs- clear to auscultation bilaterally, no rales/wheezes Heart- normal rate, regular rhythm; no murmur, no gallop, no rub appreciated Abdomen- normal bowel sounds, nondistended, soft, nontender, no masses or hepatosplenomegaly no CVA tenderness Extremities- no pretibial edema, no calf tenderness; peripheral pulses intact BL knees to erythema/edema/warmth/tenderness Neuro- alert, oriented x 3; CN 2-12 grossly intact; motor 5/5 bilaterally;sensation 100% on all extremities; no other gross focal neurologic deficits Skin- warm & dry Results & Data Results & Data ([facility]) Vital Signs (Past 12 Hours) Vital Signs Temp Pulse Resp BP Pulse Ox 09/06/20 15:33 36.6 C 83 18 153/78 H 95 09/06/20 12:10 177/97 H
[2020-09-07] MEDS: LEVOTHYROXINE SODIUM 88 MCG TABLET PO SCH (05:39)
--- NOTE | 2020-09-07 07:58 | XRay Report ---
LEFT KNEE 2 VIEWS HISTORY: Left knee pain, s/p fall, r/o fracture COMPARISON: Left knee 04/24/2020. FINDINGS: There is no fracture or dislocation. Soft tissues are unremarkable. There is a left total k nee arthroplasty. The hardware is intact. No abnormal periprosthetic lucency. No significant knee eff usion. IMPRESSION: No fractures. ACT 112: Negative or not required by law. Electronically signed by: Cristi Zhang M.D. 09/07/2020 7:56 AM
[2020-09-07] MEDS: VENLAFAXINE HCL XR 75 MG CAPXR PO SCH (08:37)
[2020-09-07] MEDS: ASCORBIC ACID 500 MG TAB PO SCH (08:37)
[2020-09-07] MEDS: APIXABAN 5 MG TABLET PO SCH ×2 (08:37→21:04)
[2020-09-07] MEDS: DOCUSATE SODIUM 100 MG CAP PO SCH ×2 (08:37→21:04)
[2020-09-07] MEDS: CHOLECALCIFEROL 1,000 UNITS 25 MCG TAB PO SCH (08:37)
[2020-09-07] MEDS: INSULIN GLARGINE SOLOSTAR 100 UNITS/ML 3 ML PEN SC SCH ×2 (08:42→21:06)
[2020-09-07] MEDS: INSULIN ASPART 100 UNITS/ML 3 ML PEN SC SCH ×4 (08:43→21:06)
[2020-09-07] MEDS: amLODIPine BESYLATE 5 MG TAB PO SCH (09:33)
[2020-09-07] MEDS: cefTRIAXone SODIUM 2,000 MG in DEXTROSE 5% 50 ML IV SCH (13:43)
--- NOTE | 2020-09-07 13:51 | Pharmacy Report ---
Glycemic Control Progress Note - Date of Service September 07, 2020 - Scope Glycemic Pharmacist consulted for glycemic control to write orders per [facility] inpatient glycemic control protocol. - Objective Accuchecks BSG(last 24 hours):: 09/06/20 09/06/20 09/06/20 15:26 17:19 20:45 POC Glucose 176 H 129 H 198 H 09/07/20 09/07/20 08:09 12:18 POC Glucose 229 H 209 H HbA1c:: Hemoglobin A1c 6.4 % (4.5-5.6) H 09/05/20 06:46 - Recent Pertinent Medications The patient is currently receiving: * Basal insulin: Lantus 15 units in the morning and 10 units at night * Correctional Insulin: Novolog Correction per scale ACHS Goal Range: Low 110 mg/dL - High 140 mg/dL Correction Factor: 20 mg/dL/unit * Prandial insulin: Per carb ratio of 1 unit per 6 grams CHO consumed - Outpatient Anti-Diabetic Meds lantus 10 units HS Humalog units with meals - Assessment & Plan ASSESSMENT: * See progress note from 09/06/20 for more background info, in short: * Pt receiving SQ basal bolus insulin regimen for hyperglycemia secondary to baseline DM (outpatient regimen on hold). Patient on Rocephin for Citrobacter UTI. * Patient is currently receiving an average of 50 units of insulin per day * 25 units of basal insulin * 25 units of prandial/correctional insulin * BSGs ranging 129 - 264 mg/dl over the past 24hrs * Changes needed to insulin regimen: * AM Fasting BSG = 229 mg/dl. This is slightly above goal range for patient based on inpatient targets and co-morbidities. This, however, is 40 points lower than yesterday's fasting BSG (264 mg/dL vs 229 mg/dL). Will continue Lantus 13 units (~26 units) BID for now. If fasting does not trend down tomorrow, could consider increasing. Cautious as this is > 2 x patient's home Lantus dose BUT patient's home regimen is very bolus heavy. * Post-prandial BSGs were moderately controlled. Continue as Lantus reaches steady state - carbohydrate ratio may need tightened as patient's home regimen is very bolus heavy. * Total daily dose = 50-60 units. Glycemic control improving. PLAN FOR INPATIENT GLYCEMIC CONTROL: * Continuing Lantus 13 units SQ BID * Continuing correction factor of 20 mg/dl/unit * Continuing carb ratio of 1 unit per 6 grams CHO consumed * Continuing goal range of Low 110 mg/dL - High 140 mg/dL * Please note that the plan above was derived based on current level of insulin resistance and hospital stress. These recommendations are appropriate for inpatient admission only. Plan of care upon discharge will need to be reassessed to avoid potential outpatient hypo/hyperglycemia. Thank you.
[2020-09-07] MEDS: ESCITALOPRAM OXALATE 10 MG TAB PO SCH (21:05)
[2020-09-07] MEDS: LATANOPROST 0.005% OP SOLN 2.5 ML BTL OP SCH (21:05)
[2020-09-07] MEDS: ROSUVASTATIN CALCIUM 10 MG TAB PO SCH (21:05)
[2020-09-07] MEDS: FLUTICASONE PROPIONATE NA SPR 16 GM BTL PRN (21:09)
--- NOTE | 2020-09-07 21:09 | Hospitalist Progress Note ---
Date of Service September 07, 2020 Assessment & Plan (1) Generalized weakness: Secondary to UTI, Citrobacter afebrile clinically improved overall on day 3 of ceftriaxone IV discharge to oral cefdinir tomorrow (2) Acute UTI: Management per #1 Chronic kidney disease stage IV. -At baseline Diabetes Type 2 Mellitus with [employer] Current of Insulin Anemia of chronic kidney disease -receives outpatient Procrit injections. Patient follows with [facility] Hematology Hypothyroidism - Continue Synthroid. Hyperlipidemia - On statin. Depression -On venlafaxine and Lexapro History of Pulmonary embolism in the Past -on Eliquis. Admission and Anticipated Discharge Date Admission Date: September 05, 2020 Subjective Follow-up for falls, weakness, UTI, etc. Seen resting in bed, comfortable, in good spirits states she continues to feel improved no fevers or chills, abdominal pain, dysuria, nausea vomiting no other symptoms noted Review of Systems Review of Systems: All systems reviewed & are unremarkable except as noted in Subjective Physical Exam Physical Exam: General- oriented x 3, not in distress, speaks in sentences with no effort or accessory muscle use Eyes- anicteric Neck- no JVD Lungs- clear breath sounds bilaterally Heart- normal rate, regular rhythm; no murmurs Abdomen- normal bowel sounds, nondistended, soft, nontender no CVA tenderness Extremities- no pretibial edema, no calf tenderness Neuro- alert, oriented x 3; no gross focal neurologic deficits Skin- warm & dry Results & Data Results & Data ([facility]) Vital Signs (Past 12 Hours) Vital Signs Temp Pulse Resp BP Pulse Ox 09/07/20 15:22 36.7 C 89 16 147/85 H 95 Laboratory Results Laboratory Results - last 24 hr 09/07/20 09/07/20 09/07/20 08:09 12:18 16:59 POC Glucose 229 H 209 H 124 H 09/07/20 20:58 POC Glucose 171 H
[2020-09-08] MEDS: LEVOTHYROXINE SODIUM 88 MCG TABLET PO SCH (06:41)
[2020-09-08 06:54] LABS: Creatinine Clr Calc Pharmacy 23.6 ml/min; Est GFR (African American) 25.9; Est GFR (Non-African American) 22.4
[2020-09-08] MEDS: ASCORBIC ACID 500 MG TAB PO SCH (08:29)
[2020-09-08] MEDS: CHOLECALCIFEROL 1,000 UNITS 25 MCG TAB PO SCH (08:29)
[2020-09-08] MEDS: APIXABAN 5 MG TABLET PO SCH ×2 (08:29→18:02)
[2020-09-08] MEDS: DOCUSATE SODIUM 100 MG CAP PO SCH ×2 (08:29→21:41)
[2020-09-08] MEDS: FLUTICASONE PROPIONATE NA SPR 16 GM BTL PRN ×2 (08:30→21:42)
[2020-09-08] MEDS: amLODIPine BESYLATE 5 MG TAB PO SCH (08:30)
[2020-09-08] MEDS: VENLAFAXINE HCL XR 75 MG CAPXR PO SCH (08:30)
[2020-09-08] MEDS: INSULIN ASPART 100 UNITS/ML 3 ML PEN SC SCH ×4 (08:31→21:46)
[2020-09-08] MEDS: INSULIN GLARGINE SOLOSTAR 100 UNITS/ML 3 ML PEN SC SCH ×2 (08:32→21:45)
[2020-09-08] MEDS: cefTRIAXone SODIUM 2,000 MG in DEXTROSE 5% 50 ML IV SCH (13:09)
--- NOTE | 2020-09-08 14:19 | Pharmacy Report ---
Pharmacy Glycemic Short Note 2 - Date of Service September 08, 2020 - Glycemic Short BSG Results (Last 24 hours): 09/07/20 09/07/20 09/08/20 16:59 20:58 08:09 POC Glucose 124 H 171 H 213 H 09/08/20 12:29 POC Glucose 215 H OUTPATIENT ANTIDIABETIC REGIMEN: * Lantus 10 units SC HS * Novolog 14 units AM, 28 units Lunch, 20 units PM + SSI as needed RISK FACTORS FOR INSULIN RESISTANCE: * UTI on Ceftriaxone * T2DM diet ordered ASSESSMENT: * Amaris received 51 units of insulin yesterday: * 26 units of basal and 25 units of bolus * BSGs 229, 209, 124 171 mg/dL * Fasting BSG remains above goal but is trending downward. * Will increase basal insulin by ~15% * Post prandial hyperglycemia with lunch then improvement throughout the day * Will utilize a tighter CF and CR with breakfast to avoid lunchtime spike PLAN FOR INPATIENT GLYCEMIC CONTROL: * Basal insulin - increased * Lantus 15 units SQ BID * Bolus insulin - tighten breakfast parameters * NovoLog per scale ACHS or Q6hrs while NPO * Goal Range: Low 110 mg/dL - High 140 mg/dL Breakfast: * Correction Factor: 15 mg/dL/unit * Nutritional / Prandial insulin per carb ratio of 1 unit per 5 grams CHO consumed Lunch/dinner/HS: * Correction Factor: 20 mg/dL/unit * Nutritional / Prandial insulin per carb ratio of 1 unit per 6 grams CHO consumed PLAN FOR DISCHARGE: * A1c of 6.4% demonstrates excellent outpatient control of T2DM. Given patient's age and comorbidities, an acceptable A1c would be < 8%. May consider decreasing outpatient dose upon discharge to prevent any hypoglycemia that may be contributing to weakness/falls.
--- NOTE | 2020-09-08 18:58 | Hospitalist Progress Note ---
Date of Service September 08, 2020 Assessment & Plan (1) Generalized weakness: Secondary to UTI, Citrobacter afebrile clinically improved overall on day 4/5of ceftriaxone IV (2) Acute UTI: Management per #1 Chronic kidney disease stage IV. -At baseline Diabetes Type 2 Mellitus with [facility] Current of Insulin Anemia of chronic kidney disease -receives outpatient Procrit injections. Patient follows with [facility] Hematology Hypothyroidism - Continue Synthroid. Hyperlipidemia - On statin. Depression -On venlafaxine and Lexapro History of Pulmonary embolism in the Past -on Eliquis. Admission and Anticipated Discharge Date Admission Date: September 05, 2020 Subjective Follow-up for UTI, etc. Seen resting in bed, comfortable, no distress, watching TV, in good spirits States that she feels fine overall No fevers or chills, abdominal or back pain, problems with urination Knee pain also improving Ambulating in the room and in the hallways with no problems No other symptoms Review of Systems Review of Systems: All systems reviewed & are unremarkable except as noted in Subjective Physical Exam Physical Exam: General- oriented x 3, not in distress, speaks in sentences with no effort or accessory muscle use Eyes- anicteric Neck- no JVD Lungs- clear BS BL Heart- normal rate, regular rhythm; no murmurs Abdomen- normal bowel sounds, nondistended, soft, nontender No CVA tenderness Extremities- no pretibial edema, no calf tenderness Neuro- alert, oriented x 3; no gross focal neurologic deficits Skin- warm & dry Results & Data Results & Data ([facility] [place]) Vital Signs (Past 12 Hours) Vital Signs Temp Pulse Resp BP Pulse Ox 09/08/20 15:20 37.3 C 90 18 142/83 H 94 09/08/20 08:12 36.8 C 90 18 134/75 91 Laboratory Results Laboratory Results - last 24 hr 09/07/20 09/08/20 09/08/20 20:58 06:03 08:09 Creatinine 2.07 H Est Cr Clr Drug Dosing 23.6 Est GFR ( Amer) 25.9 Est GFR (Non-Af Amer) 22.4 POC Glucose 171 H 213 H 09/08/20 09/08/20 12:29 17:21 Creatinine Est Cr Clr Drug Dosing Est GFR ( Amer) Est GFR (Non-Af Amer) POC Glucose 215 H 194 H
[2020-09-08] MEDS: ROSUVASTATIN CALCIUM 10 MG TAB PO SCH (21:41)
[2020-09-08] MEDS: LATANOPROST 0.005% OP SOLN 2.5 ML BTL OP SCH (21:41)
[2020-09-08] MEDS: ESCITALOPRAM OXALATE 10 MG TAB PO SCH (21:41)
[2020-09-09] MEDS: LEVOTHYROXINE SODIUM 88 MCG TABLET PO SCH (06:19)
[2020-09-09] MEDS: INSULIN ASPART 100 UNITS/ML 3 ML PEN SC SCH ×4 (09:06→21:09)
[2020-09-09] MEDS: INSULIN GLARGINE SOLOSTAR 100 UNITS/ML 3 ML PEN SC SCH ×2 (09:07→21:09)
[2020-09-09] MEDS: ASCORBIC ACID 500 MG TAB PO SCH (09:08)
[2020-09-09] MEDS: VENLAFAXINE HCL XR 75 MG CAPXR PO SCH (09:08)
[2020-09-09] MEDS: CHOLECALCIFEROL 1,000 UNITS 25 MCG TAB PO SCH (09:09)
[2020-09-09] MEDS: APIXABAN 5 MG TABLET PO SCH ×2 (09:09→20:23)
[2020-09-09] MEDS: amLODIPine BESYLATE 5 MG TAB PO SCH (09:10)
[2020-09-09] MEDS: DOCUSATE SODIUM 100 MG CAP PO SCH ×2 (09:10→20:23)
[2020-09-09] MEDS: cefTRIAXone SODIUM 2,000 MG in DEXTROSE 5% 50 ML IV SCH (12:57)
--- NOTE | 2020-09-09 17:20 | Hospitalist Progress Note ---
Date of Service September 09, 2020 Assessment & Plan (1) Generalized weakness: Secondary to UTI, Citrobacter afebrile clinically improved overall on day 5/5of ceftriaxone IV (2) Acute UTI: Management per #1 Chronic kidney disease stage IV. -At baseline Diabetes Type 2 Mellitus with [facility] Current of Insulin Anemia of chronic kidney disease -receives outpatient Procrit injections. Patient follows with [facility]ology Hypothyroidism - Continue Synthroid. Hyperlipidemia - On statin. Depression -On venlafaxine and Lexapro History of Pulmonary embolism in the Past -on Eliquis. Seizure Awaiting acceptance to [facility] Admission and Anticipated Discharge Date Admission Date: September 05, 2020 Subjective Delayed entry Date of service per above Seen resting bed, comfortable, not in distress Feels fine overall No shortness of breath, chest pain, dizziness, fevers or chills, abdominal pain No other symptoms Review of Systems Review of Systems: All systems reviewed & are unremarkable except as noted in Subjective Physical Exam Physical Exam: General- oriented x 3, not in distress, speaks in sentences with no effort or accessory muscle use Eyes- anicteric Neck- no JVD Lungs- clear BS BL Heart- normal rate, regular rhythm; no murmurs Abdomen- normal bowel sounds, nondistended, soft, nontender Extremities- no pretibial edema, no calf tenderness Bilateral knees: No erythema/warmth/tenderness/edema Neuro- alert, oriented x 3; no gross focal neurologic deficits Skin- warm & dry Results & Data Results & Data ([facility]) Vital Signs (Past 12 Hours) Vital Signs Temp Pulse Resp BP Pulse Ox 09/09/20 14:59 36.9 C 88 18 150/68 H 95 09/09/20 07:36 36.8 C 86 18 149/80 H 93 Laboratory Results Laboratory Results - last 24 hr 09/09/20 09/10/20 09/10/20 20:54 08:29 12:24 POC Glucose 232 H 244 H 148 H Urine Color Urine Appearance Urine pH Ur Specific Rawson Urine Protein Urine Glucose (UA) Urine Ketones Urine Blood Urine Nitrite Urine Bilirubin Urine Urobilinogen Ur Leukocyte Esterase Urine WBC (Auto) Urine RBC (Auto) U Hyaline Cast (Auto) U Epithel Cells (Auto) Urine Bacteria (Auto) 09/10/20 09/10/20 13:50 17:15 POC Glucose 117 H Urine Color Yellow Urine Appearance Clear Urine pH 5.0 Ur Specific Rawson 1.016 Urine Protein Trace H Urine Glucose (UA) Trace H Urine Ketones Negative Urine Blood Negative Urine Nitrite Negative Urine Bilirubin Negative Urine Urobilinogen Negative Ur Leukocyte Esterase Negative Urine WBC (Auto) 1-5 Urine RBC (Auto) 0-4 U Hyaline Cast (Auto) 0 U Epithel Cells (Auto) 10-20 H Urine Bacteria (Auto) Negative
[2020-09-09] MEDS: ESCITALOPRAM OXALATE 10 MG TAB PO SCH (20:23)
[2020-09-09] MEDS: ROSUVASTATIN CALCIUM 10 MG TAB PO SCH (20:23)
[2020-09-09] MEDS: LATANOPROST 0.005% OP SOLN 2.5 ML BTL OP SCH (20:24)
[2020-09-09] MEDS: FLUTICASONE PROPIONATE NA SPR 16 GM BTL PRN (20:25)
[2020-09-10] MEDS: LEVOTHYROXINE SODIUM 88 MCG TABLET PO SCH (05:41)
[2020-09-10] MEDS ORDERED: INSULIN GLARGINE SOLOSTAR 100 UNITS/ML 3 ML PEN SC SCH (09:15)
[2020-09-10] MEDS ORDERED: INSULIN GLARGINE SOLOSTAR 100 UNITS/ML 3 ML PEN SC ONE (09:15)
[2020-09-10] MEDS: DOCUSATE SODIUM 100 MG CAP PO SCH ×2 (09:51→21:00)
[2020-09-10] MEDS: VENLAFAXINE HCL XR 75 MG CAPXR PO SCH (09:51)
[2020-09-10] MEDS: ASCORBIC ACID 500 MG TAB PO SCH (09:51)
[2020-09-10] MEDS: amLODIPine BESYLATE 5 MG TAB PO SCH (09:51)
[2020-09-10] MEDS: APIXABAN 5 MG TABLET PO SCH ×2 (09:51→17:37)
[2020-09-10] MEDS: CHOLECALCIFEROL 1,000 UNITS 25 MCG TAB PO SCH (09:51)
[2020-09-10] MEDS: FLUTICASONE PROPIONATE NA SPR 16 GM BTL PRN (09:52)
[2020-09-10] MEDS: INSULIN ASPART 100 UNITS/ML 3 ML PEN SC SCH ×5 (09:54→21:02)
--- NOTE | 2020-09-10 10:00 | Pharmacy Report ---
Pharmacy Glycemic Short Note 2 - Date of Service September 10, 2020 - Glycemic Short BSG Results (Last 24 hours): 09/09/20 09/09/20 09/09/20 12:08 17:03 20:54 POC Glucose 288 H 208 H 232 H 09/10/20 08:29 POC Glucose 244 H OUTPATIENT ANTIDIABETIC REGIMEN: * Lantus 10 units SC HS * Novolog 14 units AM, 28 units Lunch, 20 units PM + SSI as needed RISK FACTORS FOR INSULIN RESISTANCE: * UTI on Ceftriaxone * T2DM diet ordered ASSESSMENT: 09/10 * Patient received total of 69 units of insulin yesterday, of which 30 were basal insulin * Fasting BSG elevated at 244 mg/dL - plan to increase basal ~30% today. Will give 25 units now, then increase to 20 units bid * BSGs elevated yesterday, plan to tighten CF/CR more this AM PLAN FOR INPATIENT GLYCEMIC CONTROL: * Basal insulin - increased * Lantus 20 units SQ BID * Bolus insulin - tighten breakfast parameters * NovoLog per scale ACHS or Q6hrs while NPO * Goal Range: Low 110 mg/dL - High 140 mg/dL Novolog * Correction Factor: 12 mg/dL/unit * Nutritional / Prandial insulin per carb ratio of 1 unit per 4 grams CHO consumed PLAN FOR DISCHARGE: * A1c of 6.4% demonstrates excellent outpatient control of T2DM. Given patient's age and comorbidities, an acceptable A1c would be < 8%. May consider decreasing dose upon discharge if patient reporting any hypoglycemia outpatient
[2020-09-10] MEDS: INSULIN GLARGINE SOLOSTAR 100 UNITS/ML 3 ML PEN SC SCH ×2 (11:41→21:03)
[2020-09-10] MEDS: cefTRIAXone SODIUM 2,000 MG in DEXTROSE 5% 50 ML IV SCH (13:37)
[2020-09-10 14:18] LABS: Appearance Urine Clear (Clear); Bacteria Urine Automated Negative (Negative); Bilirubin Urine Negative (Negative); Blood Urine Negative (Negative); Cast Urine Automated 0 /lpf (0-5); Color Urine Yellow; Glucose Urine UA Trace (Negative); Ketones Urine Negative (Negative); Leukocyte Esterase Urine Negative (Negative); Nitrite Urine Negative (Negative); Protein Urine Trace (Negative); RBC Urine Automated 0-4 /hpf (0-4); Specific Gravity Urine 1.016 (1.000-1.030); Urobilinogen Urine Negative (Negative)
--- NOTE | 2020-09-10 17:58 | Hospitalist Progress Note ---
Date of Service September 10, 2020 Assessment & Plan (1) Generalized weakness: Secondary to UTI, Citrobacter afebrile clinically improved overall Completed 5/5 days of ceftriaxone IV Repeat urinalysis today to demonstrate clearance (2) Acute UTI: Management per #1 Chronic kidney disease stage IV. -At baseline Diabetes Type 2 Mellitus with [employer] Current of Insulin Anemia of chronic kidney disease -receives outpatient Procrit injections. Patient follows with [facility] Hematology Hypothyroidism - Continue Synthroid. Hyperlipidemia - On statin. Depression -On venlafaxine and Lexapro History of Pulmonary embolism in the Past -on Eliquis. Seizure Awaiting acceptance [facility] Admission and Anticipated Discharge Date Admission Date: September 05, 2020 Subjective Follow-up for UTI, etc. Seen resting in bed, comfortable, not in distress Sleeping but easily awakened States she feels fine overall Abdominal pain, urinary symptoms, nausea vomiting, chills No other symptoms Review of Systems Review of Systems: All systems reviewed & are unremarkable except as noted in Subjective Physical Exam Physical Exam: General- oriented x 3, not in distress, speaks in sentences with no effort or accessory muscle use Eyes- anicteric Neck- no JVD Lungs- clear BS BL Heart- normal rate, regular rhythm; no murmurs Abdomen- normal bowel sounds, nondistended, soft, nontender CVA tenderness Extremities- no pretibial edema, no calf tenderness No knee swelling, erythema/tenderness Neuro- alert, oriented x 3; no gross focal neurologic deficits Skin- warm & dry Results & Data Results & Data ([facility]) Vital Signs (Past 12 Hours) Vital Signs Temp Pulse Resp BP Pulse Ox 09/10/20 15:36 36.7 C 85 153/87 H 95 09/10/20 08:30 36.7 C 89 18 150/66 H 93
[2020-09-10] MEDS ORDERED: amLODIPine BESYLATE 5 MG TAB PO ONE (18:00)
[2020-09-10] MEDS: LATANOPROST 0.005% OP SOLN 2.5 ML BTL OP SCH (21:01)
[2020-09-10] MEDS: ESCITALOPRAM OXALATE 10 MG TAB PO SCH (21:01)
[2020-09-10] MEDS: ROSUVASTATIN CALCIUM 10 MG TAB PO SCH (21:01)
[2020-09-11] MEDS: LEVOTHYROXINE SODIUM 88 MCG TABLET PO SCH (05:31)
[2020-09-11 06:50] LABS: Creatinine Clr Calc Pharmacy 24.4 ml/min; Est GFR (Non-African American) 23.3
[2020-09-11] MEDS: VENLAFAXINE HCL XR 75 MG CAPXR PO SCH (08:12)
[2020-09-11] MEDS: DOCUSATE SODIUM 100 MG CAP PO SCH ×2 (08:12→21:00)
[2020-09-11] MEDS: APIXABAN 5 MG TABLET PO SCH ×2 (08:12→21:02)
[2020-09-11] MEDS: ASCORBIC ACID 500 MG TAB PO SCH (08:13)
[2020-09-11] MEDS: INSULIN GLARGINE SOLOSTAR 100 UNITS/ML 3 ML PEN SC SCH ×2 (08:13→21:03)
[2020-09-11] MEDS: amLODIPine BESYLATE 5 MG TAB PO SCH (08:13)
[2020-09-11] MEDS: CHOLECALCIFEROL 1,000 UNITS 25 MCG TAB PO SCH (08:13)
[2020-09-11] MEDS: INSULIN ASPART 100 UNITS/ML 3 ML PEN SC SCH ×4 (08:17→21:05)
[2020-09-11] MEDS ORDERED: amLODIPine BESYLATE 5 MG TAB PO ONE (13:30)
--- NOTE | 2020-09-11 20:44 | Hospitalist Progress Note ---
Date of Service September 11, 2020 Assessment & Plan (1) Generalized weakness: Secondary to UTI, Citrobacter afebrile clinically improved overall Completed 5/5 days of ceftriaxone IV Repeat urinalysis no signs of UTI (2) Acute UTI: Management per #1 Chronic kidney disease stage IV. -At baseline Diabetes Type 2 Mellitus with [facility] Current of Insulin Anemia of chronic kidney disease -receives outpatient Procrit injections. Patient follows with [facility] H[facility] Hypertension Amlodipine started Monitor BP Hypothyroidism - Continue Synthroid. Hyperlipidemia - On statin. Depression -On venlafaxine and Lexapro History of Pulmonary embolism in the Past -on Eliquis. Disposition Awaiting acceptance to [facility] Plan of care discussed with patient in detail and at length All questions answered She is understanding and agreeable, comfortable with the plan Admission and Anticipated Discharge Date Admission Date: September 05, 2020 Subjective Follow-up for UTI, etc. Seen resting in bed, comfortable, not in distress States she feels fine overall No dizziness, chest pain, shortness of breath, abdominal pain, problems with urination No other symptoms Review of Systems Review of Systems: All systems reviewed & are unremarkable except as noted in Subjective Physical Exam Physical Exam: General- oriented x 3, not in distress, speaks in sentences with no effort or accessory muscle use Eyes- anicteric Neck- no JVD Lungs- clear BS bilaterally Heart- normal rate, regular rhythm; no murmurs Abdomen- normal bowel sounds, nondistended, soft, nontender Extremities- no pretibial edema, no calf tenderness Knees, no swelling, erythema/warmth Neuro- alert, oriented x 3; no gross focal neurologic deficits Skin- warm & dry Results & Data Results & Data ([facility]) Vital Signs (Past 12 Hours) Vital Signs Temp Pulse Resp BP Pulse Ox 09/11/20 15:33 36.5 C 86 16 149/70 H 95 Laboratory Results Laboratory Results - last 24 hr 09/11/20 09/11/20 09/11/20 05:29 05:42 08:16 Creatinine 2.00 H Est Cr Clr Drug Dosing 24.4 Est GFR ( Amer) 27.0 Est GFR (Non-Af Amer) 23.3 POC Glucose 148 H 172 H 09/11/20 09/11/20 09/11/20 12:02 17:16 20:32 Creatinine Est Cr Clr Drug Dosing Est GFR ( Amer) Est GFR (Non-Af Amer) POC Glucose 149 H 185 H 183 H
[2020-09-11] MEDS: FLUTICASONE PROPIONATE NA SPR 16 GM BTL PRN (20:59)
[2020-09-11] MEDS: LATANOPROST 0.005% OP SOLN 2.5 ML BTL OP SCH (21:00)
[2020-09-11] MEDS: ROSUVASTATIN CALCIUM 10 MG TAB PO SCH (21:01)
[2020-09-11] MEDS: ESCITALOPRAM OXALATE 10 MG TAB PO SCH (21:02)
[2020-09-11 23:17] VITALS: O2SAT 93
[2020-09-12] MEDS: LEVOTHYROXINE SODIUM 88 MCG TABLET PO SCH (06:12)
[2020-09-12 06:45] LABS: Hematocrit (blood only) 36.9 % (37-47); Hemoglobin 11.9 g/dL (12.0-16.0); Mean Corpuscular Hemoglobin 30.1 pg (25-34); Mean Corpuscular Hgb Conc 32.2 g/dL (32-36); Mean Corpuscular Volume 93.2 fL (80-100); Platelet Count 497 K/uL (130-400); RDW Coefficient of Variation 14.3 % (11.5-14.5); Red Blood Count 3.96 M/uL (4.2-5.4); White Blood Count 12.77 K/uL (4.8-10.8)
[2020-09-12 08:08] VITALS: BP 163/83; PULSE 89; TEMP 98.4
[2020-09-12] MEDS: DOCUSATE SODIUM 100 MG CAP PO SCH (08:15)
[2020-09-12] MEDS: VENLAFAXINE HCL XR 75 MG CAPXR PO SCH (08:15)
[2020-09-12] MEDS: APIXABAN 5 MG TABLET PO SCH (08:17)
[2020-09-12] MEDS: CHOLECALCIFEROL 1,000 UNITS 25 MCG TAB PO SCH (08:19)
[2020-09-12] MEDS: ASCORBIC ACID 500 MG TAB PO SCH (08:19)
[2020-09-12] MEDS: INSULIN GLARGINE SOLOSTAR 100 UNITS/ML 3 ML PEN SC SCH (08:24)
[2020-09-12] MEDS: INSULIN ASPART 100 UNITS/ML 3 ML PEN SC SCH ×2 (08:55→12:45)
[2020-09-12] MEDS ORDERED: amLODIPine BESYLATE 5 MG TAB PO SCH (09:00)
--- NOTE | 2020-09-12 12:47 | Hospitalist Progress Note ---
Date of Service September 12, 2020 Assessment & Plan (1) Generalized weakness: Secondary to UTI, Citrobacter afebrile clinically improved overall Completed 5/5 days of ceftriaxone IV Repeat urinalysis no signs of UTI afebrile, no urinary symptoms (2) Acute UTI: Management per #1 Chronic kidney disease stage IV. -At baseline Diabetes Type 2 Mellitus with [facility] Current of Insulin - a1c 6.4 - continue usual Insulin regimen Anemia of chronic kidney disease -receives outpatient Procrit injections. Patient follows with [facility] Hematology - stable Hypertension - Amlodipine started, titrated up to 7.5mg po daily - ff up as outpatient Hypothyroidism - Continue Synthroid. Hyperlipidemia - On statin. Depression -On venlafaxine and Lexapro History of Pulmonary embolism -on Eliquis. Disposition d/c to home ff up with PCP in 1 week Plan of care discussed with patient in detail and at length All questions answered She is understanding and agreeable, comfortable with the plan Admission and Anticipated Discharge Date Admission Date: September 05, 2020 Subjective ff up for UTI, etc seen resting in bed, sitting up, in good spirits states she feels fine overall no problems with urination, abdominal pain, nausea/vomiting no dizziness, headache, chest pain, dyspnea no other symptoms states she is ready for discharge today Review of Systems Review of Systems: All systems reviewed & are unremarkable except as noted in Subjective Physical Exam Physical Exam: General- oriented x 3, not in distress, speaks in sentences with no effort or accessory muscle use Eyes- anicteric Neck- no JVD Lungs- clear breath sounds bilaterally Heart- normal rate, regular rhythm; no murmurs Abdomen- normal bowel sounds, nondistended, soft, nontender Extremities- no pretibial edema, no calf tenderness Neuro- alert, oriented x 3; no gross focal neurologic deficits Skin- warm & dry Results & Data Results & Data ([facility]) Vital Signs (Past 12 Hours) Vital Signs Temp Pulse Resp BP Pulse Ox 09/12/20 08:07 36.9 C 89 18 163/83 H 93 Laboratory Results Laboratory Results - last 24 hr 09/11/20 09/11/20 09/12/20 17:16 20:32 06:20 WBC 12.77 H RBC 3.96 L Hgb 11.9 L Hct 36.9 L MCV 93.2 MCH 30.1 MCHC 32.2 RDW Std Deviation 49.0 H RDW Coeff of Iban 14.3 Plt Count 497 H MPV 9.0 POC Glucose 185 H 183 H 09/12/20 09/12/20 08:14 12:08 WBC RBC Hgb Hct MCV MCH MCHC RDW Std Deviation RDW Coeff of Iban Plt Count MPV POC Glucose 128 H 134 H
--- NOTE | 2020-09-12 13:06 | Discharge Summary ---
Date of Service September 12, 2020 Admission HPI Per Admitting Provider CHIEF COMPLAINT: Weakness and falls. HISTORY OF PRESENT ILLNESS: This is a 80-year-old female with past medical history significant for pulmonary embolism 2 months ago, on Eliquis; chronic back pain, renal amyloidosis, renal insufficiency, type 2 diabetes, anemia, history of anxiety and depression, who presents with weakness and falls. The patient states since 09/2019, she is having ongoing weakness and imbalance and shortness of breath, but last few days, her weakness got worse and she is falling frequently that is the reason she came to the ER and found to have urinary tract infection. The patient is also having increased frequency of micturition, but denies any burning micturition, no blood in the urine. No fevers. Has cough that is going on for several months and she has mild loss of sense of smell or taste, but that has been going on for last 6 months. Appetite is not that great. Denies any chest pain, currently no shortness of breath. Currently, no headache, no blurred visions. Has some ear pain in the right ear pinna that is there for some time. Currently, no runny nose, no sore throat, no nausea, no vomiting, no abdominal pain, constipated. No blood in the stools or black stools. Has some swelling in the legs, ambulates ok. Admission Exam Per Admitting Provider GENERAL: The patient is of moderate built, not in acute distress. VITAL SIGNS: Temperature 36.7, pulse 89, respiratory rate 18, blood pressure 129/79, oxygen 96% room air. HEENT: Pupils equal, round, reactive to light. Oral mucosa moist. NECK: No neck masses seen. CARDIOVASCULAR: S1, S2, regular rate and rhythm, no murmur, no gallop. RESPIRATORY SYSTEM: Normal AP diameter. No accessory muscle use. No wheezing, no crackles. ABDOMEN: Soft, bowel sounds present, nontender. No distention. CENTRAL NERVOUS SYSTEM: Cranial nerves II-XII grossly intact. Nonfocal. EXTREMITIES: Mild pedal edema present. Principal Diagnosis URINARY TRACT INFECTION, [employer] Discharge Exam General- oriented x 3, not in distress, speaks in sentences with no effort or accessory muscle use Eyes- anicteric Neck- no JVD Lungs- clear breath sounds bilaterally Heart- normal rate, regular rhythm; no murmurs Abdomen- normal bowel sounds, nondistended, soft, nontender Extremities- no pretibial edema, no calf tenderness Neuro- alert, oriented x 3; no gross focal neurologic deficits Skin- warm & dry Discharge Data Allergies Allergy/AdvReac Type Severity Reaction Status Date / Time exenatide Allergy Unknown GI UPSET Verified 08/22/20 11:05 ibuprofen Allergy Unknown GI UPSET Verified 08/22/20 11:05 mirtazapine Allergy Unknown MOUTH/FACIAL Verified 08/22/20 11:05 SWELLING oxycodone Allergy Unknown GI UPSET Verified 08/22/20 11:05 AND IRRITATION Penicillins Allergy Unknown WELTS Verified 08/22/20 11:05 phenol Allergy Unknown GI UPSET Verified 08/22/20 11:05 Sulfa (Sulfonamide Allergy Unknown PT DOESN'T Verified 08/22/20 11:05 Antibiotics) REMEMBER REACTION - MOTHER TOLD PT Consultations 09/04/20 22:04 ED Decision to Admit Stat 09/05/20 02:30 Consult Case Management - Discharge Planning Routine Ordered Studies 09/04/20 19:56 CT head/brain wo con Stat FINDINGS: No acute intracranial hemorrhage, midline shift or mass effect is present. The ventricular system is stable. White matter hypodensities favor small vessel disease. The basal cisterns are patent. No extra-axial collections are present. There are no findings to suggest acute dural sinus thrombosis or acute territorial infarct. No significant calvarial abnormalities are present. Visualized portions of the sinuses and mastoid air cells are clear. IMPRESSION: No acute intracranial findings. Hospital Course (1) Generalized weakness: Secondary to UTI, Citrobacter afebrile, no urinary symptoms clinically improved overall Completed 5/5 days of ceftriaxone IV Repeat urinalysis: no signs of UTI (2) Acute UTI: Management per #1 Chronic kidney disease stage IV. -At baseline Diabetes Type 2 Mellitus with [facility] Current of Insulin - a1c 6.4 - continue usual Insulin regimen Anemia of chronic kidney disease -receives outpatient Procrit injections. Patient follows with [facility] Hematology - stable Hypertension - Amlodipine started, titrated up to 7.5mg po daily - ff up as outpatient Hypothyroidism - Continue Synthroid. Hyperlipidemia - On statin. Depression -On venlafaxine and Lexapro History of Pulmonary embolism -on Eliquis. Disposition d/c to home ff up with PCP in 1 week Plan of care discussed with patient in detail and at length All questions answered She is understanding and agreeable, comfortable with the plan Total Time Total Time Spent Total Time Spent (In Minutes): 40 minutes Discharge Plan Discharge Items Patient Disposition: Home - Self-Care Reason For Visit: WEAKNESS Discharge Diagnosis: URINARY TRACT INFECTION Activity: Resume your previous activity Activity Comment: GRADUALLY TOLERATED Non-emergency contact: Primary Care Provider Call non-emergency contact if: you have any medication questions, your symptoms worsen, your pain is not controlled, your pain is worsening, your pain is unusual for you, your pain is concerning for you and you have a fever Follow-up/Referrals: Piper Prince CRNP [Primary Care Provider] - 09/18/20 11:30 am Diet: Carb Consistent or DM2 and Heart Healthy Addtl Attending Provider Instructions: Please review your new Medication list and follow instructions carefully. Your new medication is amlodipine 7.5 mg p.o. daily for hypertension. Please call primary care provider or return to the ER immediately if with worsening of symptoms, including Fevers or chills, weakness, confusion, nausea or vomiting, abdominal pain, problems with urination, dizziness. Please follow-up with your primary care provider in 1 week. Follow-up with fire control officer and airline reservation agent as scheduled. Pending Studies at Discharge: No Stand-Alone Forms: My ZEB, Smoking Cessation Medications and DC Order Prescriptions: New amlodipine [Norvasc] 5 mg Tablet 7.5 mg PO QAM Qty: 45 RF: 2 Continued (DME) Contour Next Test Strips strip See Rx Instructions .ROUTE .MEDSUPPLY Qty: 250 RF: 6 (DME) Contour Next Test Strips strip See Rx Instructions .ROUTE .MEDSUPPLY Qty: 250 RF: 6 (DME) Dexcom G5 Transmitter device See Rx Instructions .ROUTE .MEDSUPPLY Qty: 1 RF: 6 (DME) Dexcom G5-G4 Sensor device See Rx Instructions .ROUTE .MEDSUPPLY Qty: 4 RF: 6 rosuvastatin 10 mg tablet 10 mg PO HS Qty: 90 RF: 3 (DME) pen needle, diabetic [BD Ultra-Fine Vera Pen Needle] 32 gauge x 5/32" needle See Dose Instructions .ROUTE .MEDSUPPLY Qty: 360 RF: 3 venlafaxine [Effexor XR] 75 mg capsule,extended release 24hr 225 mg PO QAM 90 Days Qty: 270 RF: 3 levothyroxine 88 mcg tablet 88 mcg PO QAM Qty: 90 RF: 3 insulin lispro [Humalog KwikPen Insulin] 100 unit/mL insulin pen 70 unit SUBCUT .COMPLEX PRN (Reason: Diabetes II ) Qty: 21 RF: 1 apixaban 5 mg (74 tabs) tablets,dose pack 5 mg PO BID Qty: 180 RF: 3 fluticasone propionate [Flonase Allergy Relief] 50 mcg/actuation spray,suspension 2 spray INTRANASAL DAILY PRN (Reason: Allergy Symptoms) Qty: 36.4 RF: 1 Hold Instructions: replaced by Xhance ascorbic acid (vitamin C) 500 mg tablet 500 mg PO QAM RF: 0 latanoprost 0.005 % drops 1 drops OP HS RF: 0 Lantus Solostar U-100 Insulin 100 unit/mL (3 mL) insulin pen 10 unit SQ HS Qty: 9 RF: 3 escitalopram oxalate [Lexapro] 20 mg tablet 30 mg PO HS Qty: 135 RF: 3 ketoconazole 2 % shampoo 1 applic topical .COMPLEX Qty: 120 RF: 2 cholecalciferol (vitamin D3) [Vitamin D3] 25 mcg (1,000 unit) Capsule 1,000 unit PO QAM RF: 0 acetaminophen [Tylenol Arthritis Pain] 650 mg Tablet Extended Release 650 - 1,300 mg PO Q12H PRN (Reason: Pain) RF: 0 Procrit 2,000 unit/mL Solution 0 unit IV WE RF: 0 senna 8.6 mg capsule 8.6 mg PO BID PRN (Reason: Constipation) RF: 0 Discharge Orders: Discharge Order (Routine); Ordered 09/12/20 Ordered By: Zak Youssef Admission Data Admit Date/Time: 09/05/20 00:57 Attending Provider: Zak Youssef Admit Provider: Jerry Harry Primary Care Provider: Piper Prince Other Providers: Jerry Harry ; [facility] ; Perez Gardner ; [facility] Other Interventions: Discharge Summary Assessment (RN) Last Done: 09/12/20 13:19
== END 2020-09-12 14:12 | disposition home health service (06) | DRG 690 ==
LOC: ED 17:25 → 3W 09-05 00:57 → SUATTDRO 09-05 00:57 → 3W 09-05 01:00

== ENCOUNTER 2022-07-24 06:16 | Observation (INO) ==
--- NOTE | 2022-06-26 10:40 | PAT Medication Instructions ---
Medication Instructions Date of Service June 26, 2022 Home Medications Medication Instructions Recorded aspirin 81 mg tablet,delayed 81 mg PO DAILY #30 tabs 09/14/20 release clindamycin HCl 300 mg capsule 300 mg PO ONCE #7 caps 09/14/20 multivitamin (Daily Multi-Vitamin 1 tab PO DAILY #30 tabs 09/14/20 tablet) triamcinolone acetonide 0.1 % 1 applic topical BID #80 grams 12/20/20 topical cream blood-glucose meter (FreeStyle #1 ea 04/16/21 Lite Meter kit) blood-glucose sensor (Dexcom G6 #3 ea 05/07/21 Sensor device) levothyroxine 88 mcg tablet 88 mcg PO QAM #90 tabs 07/03/21 albuterol sulfate 90 mcg/actuation 2 puff inhalation Q4H PRN 07/24/21 aerosol inhaler shortness of breath #1 inhaler fluticasone propionate 50 2 spray intranasal DAILY #3 ea 08/24/21 mcg/actuation nasal spray,suspension rosuvastatin 10 mg tablet 10 mg PO HS #90 tabs 09/11/21 pen needle, diabetic 32 gauge x See Rx Instructions .Route 12/10/21 5/32" (BD Ultra-Fine Vera Pen .COMPLEX #400 ea Needle) calcitriol 0.25 mcg capsule 0.25 mcg PO .COMPLEX #36 caps 03/14/22 amlodipine 5 mg tablet 5 mg PO DAILY #90 tabs 03/18/22 lancets 28 gauge (FreeStyle #100 ea 06/12/22 Lancets) blood sugar diagnostic (FreeStyle #300 ea 06/14/22 Lite Strips) venlafaxine 75 mg capsule,extended 225 mg PO QAM 90 days #270 caps 06/19/22 release 24 hr (Effexor XR) loratadine 10 mg tablet 10 mg PO DAILY #90 tabs 06/20/22 acetaminophen 650 mg tablet,extended release (Tylenol Arthritis Pain) 650 - 1,300 mg PO Q12H PRN cholecalciferol (vitamin D3) 25 mcg (1,000 unit) capsule (Vitamin D3) 1,000 unit PO QAM latanoprost 0.005 % eye drops 1 drops ophthalmic (eye) HS ascorbic acid (vitamin C) 500 mg tablet 500 mg PO QAM aspirin 81 mg tablet,delayed release 81 mg PO DAILY clindamycin HCl 300 mg capsule 300 mg PO ONCE multivitamin (Daily Multi-Vitamin tablet) 1 tab PO DAILY triamcinolone acetonide 0.1 % topical cream 1 applic topical BID blood-glucose transmitter (Dexcom G6 Transmitter device) blood-glucose meter (FreeStyle Lite Meter kit) blood-glucose sensor (Dexcom G6 Sensor device) levothyroxine 88 mcg tablet 88 mcg PO QAM albuterol sulfate 90 mcg/actuation aerosol inhaler 2 puff inhalation Q4H PRN fluticasone propionate 50 mcg/actuation nasal spray,suspension 2 spray intranasal DAILY rosuvastatin 10 mg tablet 10 mg PO HS pen needle, diabetic 32 gauge x 5/32" (BD Ultra-Fine Vera Pen Needle) insulin glargine 100 unit/mL (3 mL) subcutaneous pen (Lantus Solostar U-100 Insulin) 8 unit subcut HS insulin lispro 100 unit/mL subcutaneous pen (Humalog KwikPen (U-100) Insulin) 70 unit subcut .COMPLEX PRN calcitriol 0.25 mcg capsule 0.25 mcg PO .COMPLEX amlodipine 5 mg tablet 5 mg PO DAILY escitalopram oxalate 20 mg tablet (Lexapro) 20 mg PO HS apixaban 5 mg (74 tabs) tablets in a dose pack 2.5 mg PO BID lancets 28 gauge (FreeStyle Lancets) blood sugar diagnostic (FreeStyle Lite Strips) venlafaxine 75 mg capsule,extended release 24 hr (Effexor XR) 225 mg PO QAM loratadine 10 mg tablet 10 mg PO DAILY Continue as directed clindamycin HCl 300 mg capsule 300 mg PO ONCE aspirin 81 mg tablet,delayed release 81 mg PO DAILY (unless directed otherwise by surgeon) ASK your prescriber and surgeon apixaban 5 mg (74 tabs) tablets in a dose pack 2.5 mg PO BID STOP taking 24 hours before surgery triamcinolone acetonide 0.1 % topical cream 1 applic topical BID DO NOT take the morning of surgery cholecalciferol (vitamin D3) 25 mcg (1,000 unit) capsule (Vitamin D3) 1,000 unit PO QAM ascorbic acid (vitamin C) 500 mg tablet 500 mg PO QAM multivitamin (Daily Multi-Vitamin tablet) 1 tab PO DAILY insulin lispro 100 unit/mL subcutaneous pen (Humalog KwikPen (U-100) Insulin) 70 unit subcut .COMPLEX PRN calcitriol 0.25 mcg capsule 0.25 mcg PO .COMPLEX loratadine 10 mg tablet 10 mg PO DAILY Take morning of surgery With a small sip of water, OTHERWISE NOTHING TO EAT OR DRINK AFTER MIDNIGHT: acetaminophen 650 mg tablet,extended release (Tylenol Arthritis Pain) 650 - 1,300 mg PO Q12H PRN(if needed) levothyroxine 88 mcg tablet 88 mcg PO QAM albuterol sulfate 90 mcg/actuation aerosol inhaler 2 puff inhalation Q4H PRN(use if needed; please bring with you to hospital day of surgery if possible) fluticasone propionate 50 mcg/actuation nasal spray,suspension 2 spray intranasal DAILY amlodipine 5 mg tablet 5 mg PO DAILY venlafaxine 75 mg capsule,extended release 24 hr (Effexor XR) 225 mg PO QAM Take evening before surgery acetaminophen 650 mg tablet,extended release (Tylenol Arthritis Pain) 650 - 1,300 mg PO Q12H PRN(if needed) latanoprost 0.005 % eye drops 1 drops ophthalmic (eye) HS albuterol sulfate 90 mcg/actuation aerosol inhaler 2 puff inhalation Q4H PRN(if needed) rosuvastatin 10 mg tablet 10 mg PO HS insulin glargine 100 unit/mL (3 mL) subcutaneous pen (Lantus Solostar U-100 Insulin) 8 unit subcut HS escitalopram oxalate 20 mg tablet (Lexapro) 20 mg PO HS Other Notes If you have any questions please call us at [phone] or [phone] or [phone] or [phone]
--- NOTE | 2022-07-01 09:48 | Anesthesiology Consultation ---
Date of Service July 01, 2022 Assessment & Plan (1) Encounter for pre-operative examination: Plan - awaiting finalized PCP clearance. - ataxia: pt concerned with being home overnight after second day post-op. She plans to further discuss post-op options with surgeon's office. Brittany with surgeon's office also made aware. - alcoholism: pt requests receiving medications with lower addiction profile when possible. She states has already discussed this with surgeon's office. I also forwarded her request/concern to surgeon's office. - pulmonology 04/09/22 [place]: "...We reviewed her PFTs. At this point time I would recommend continued clinical observation. I will schedule her to see us back in a year with repeat PFTs with specific attention to her diffusion capacity. 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 She has an appointment scheduled with them later this month...With regards to the patient's reported history of cracked ribs, I advised her that there is no indication for additional clinical or radiographic follow-up. If she is pain-free she can continue with her activity and resume her exercise program...will see her back in 1 years time, with PFTs. Sooner if needed..." - Outpatient joint assessment: Patient is currently scheduled for inpatient pathway. If re-evaluated pending system levels during current pandemic/surgeon requests outpatient pathway, patient is NOT acceptable candidate for outpatient joint program from anesthesia standpoint. Chart Review Chart Review: Pending: Refer to Additional Notes / Consult section and Patient seen in Pre Admission Testing Teaching & Discussion Pre-Anesthesia Teaching/Discussion Notes: Instructed NPO after midnight before surgery, except medications with 15 cc of water. Medication instructions provided according to the PAT guidelines. History Surgery Operation Date: 07/24/22 08:50 Proposed Procedures p Left Total Shoulder Arthroplasty - Sadiq Serrano MD Height/Weight Height: 5 ft 2 in Weight: 79.3 kg Allergies Allergy/AdvReac Type Severity Reaction Status Date / Time exenatide Allergy Unknown GI UPSET Verified 06/25/22 14:30 ibuprofen Allergy Unknown GI UPSET Verified 06/25/22 14:30 mirtazapine Allergy Unknown MOUTH/FACIAL Verified 06/25/22 14:30 SWELLING oxycodone Allergy Unknown GI UPSET Verified 06/25/22 14:30 AND IRRITATION phenol Allergy Unknown GI UPSET Verified 06/25/22 14:30 Sulfa (Sulfonamide Allergy Unknown PT DOESN'T Verified 06/25/22 14:30 Antibiotics) REMEMBER REACTION - MOTHER TOLD PT Medications Home Medications Medication Instructions Recorded Confirmed Last Taken acetaminophen 650 mg 650 - 1,300 mg PO Q12H PRN Pain 12/21/18 06/25/22 05/23/20 23:55 tablet,extended release (Tylenol Arthritis Pain) cholecalciferol (vitamin D3) 25 1,000 unit PO QAM 11/02/19 06/25/22 05/23/20 10:00 mcg (1,000 unit) capsule (Vitamin D3) latanoprost 0.005 % eye drops 1 drops ophthalmic (eye) HS 12/27/19 06/25/22 05/23/20 22:00 ascorbic acid (vitamin C) 500 mg 500 mg PO QAM 05/03/20 06/25/22 05/23/20 10:00 tablet aspirin 81 mg tablet,delayed 81 mg PO DAILY #30 tabs 09/14/20 06/25/22 Unknown release clindamycin HCl 300 mg capsule 300 mg PO ONCE #7 caps 09/14/20 06/25/22 Unknown multivitamin (Daily Multi-Vitamin 1 tab PO DAILY #30 tabs 09/14/20 06/25/22 Unknown tablet) triamcinolone acetonide 0.1 % 1 applic topical BID #80 grams 12/20/20 06/25/22 Unknown topical cream blood-glucose transmitter (Dexcom 04/06/21 06/21/22 Unknown G6 Transmitter device) blood-glucose meter (FreeStyle #1 ea 04/16/21 06/21/22 Unknown Lite Meter kit) blood-glucose sensor (Dexcom G6 #3 ea 05/07/21 06/21/22 Unknown Sensor device) levothyroxine 88 mcg tablet 88 mcg PO QAM #90 tabs 07/03/21 06/25/22 Unknown albuterol sulfate 90 mcg/actuation 2 puff inhalation Q4H PRN 07/24/21 06/25/22 Unknown aerosol inhaler shortness of breath #1 inhaler fluticasone propionate 50 2 spray intranasal DAILY #3 ea 08/24/21 06/25/22 Unknown mcg/actuation nasal spray,suspension rosuvastatin 10 mg tablet 10 mg PO HS #90 tabs 09/11/21 06/25/22 Unknown pen needle, diabetic 32 gauge x See Rx Instructions .Route 12/10/21 06/25/22 Unknown " (BD Ultra-Fine Vera Pen .COMPLEX #400 ea Needle) insulin glargine 100 unit/mL (3 8 unit subcut HS 12/26/21 06/25/22 Unknown mL) subcutaneous pen (Lantus Solostar U-100 Insulin) insulin lispro 100 unit/mL 70 unit subcut .COMPLEX PRN 12/26/21 06/25/22 Unknown subcutaneous pen (Humalog KwikPen Diabetes II (U-100) Insulin) calcitriol 0.25 mcg capsule 0.25 mcg PO .COMPLEX #36 caps 03/14/22 06/25/22 Unknown amlodipine 5 mg tablet 5 mg PO DAILY #90 tabs 03/18/22 06/25/22 Unknown escitalopram oxalate 20 mg tablet 20 mg PO HS 04/03/22 06/25/22 Unknown (Lexapro) apixaban 5 mg (74 tabs) tablets in 2.5 mg PO BID 05/02/22 06/25/22 Unknown a dose pack lancets 28 gauge (FreeStyle #100 ea 06/12/22 06/21/22 Unknown Lancets) blood sugar diagnostic (FreeStyle #300 ea 06/14/22 06/21/22 Unknown Lite Strips) venlafaxine 75 mg capsule,extended 225 mg PO QAM 90 days #270 caps 06/19/22 06/25/22 Unknown release 24 hr (Effexor XR) loratadine 10 mg tablet 10 mg PO DAILY #90 tabs 06/20/22 06/25/22 Unknown Past Medical History Medical History (Updated 07/01/22 @ 10:22 by Ria Mcdonald PA-C) 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 Exercise / Class Metabolic Activity III < 4 Walking/Shop/Light housework (denies CP or SOB with usual activities) Past Family History Family History Mother Depression Scoliosis Cancer Father Depression Lung cancer Cancer Grandmother Breast cancer Asthma Other Hearing loss Denies family history of Ovarian cancer Prostate cancer Myocardial infarction Colorectal cancer Past Surgical History Surgical History History of adenoidectomy History of appendectomy History of bone marrow biopsy History of bunionectomy 2+ SURGERIES History of cataract surgery History of cholecystectomy History of colonoscopy History of hysterectomy 1976. TOTAL HYSTER FOR DYSPLASIA History of tonsillectomy B/L History of total hip arthroplasty B/L History of total knee replacement L 02/25/18: SAB L4-L5 1 attempt + PNB. History of total shoulder replacement RIGHT Status post biopsy of kidney Past Anesthesia History No Family Hx of Anesthesia Complications and Other (slow to wake) History of PONV No Hx of Motion Sickness and History of PONV (denies needing scop patch) Social History Smoking Status: Former smoker tobacco type: cigarettes Do You Dip or Chew Tobacco: No Smoking End Date: QUIT 1978 Hx Alcohol Use: Yes (h/o alcohol abuse; in remission x 35 yrs) Hx Substance Use: No substance use type: does not use Review of Systems Snoring, denies witnessed apneas. Chronic cough ongoing x years; rarely productive of sputum; denies change or worsening. Patient denies chest pain, shortness of breath, dyspnea on exertion, reflux, fever, chills, wheezing, or palpitations. Physical Exam Vital Signs Vitals BP 138/66 P 76 TEMP 97.8 SP02 97% on RA RESP 18 Physical Full cervical extension range of motion without pain TMD 3.5 finger breadths Mallampati Score 3 Dentition: intact, one bridge, several caps/crowns; denies chipped or loose teeth or implants Lungs: normal respiratory effort. Clear throughout to auscultation, no adventitious breath sounds Cardiac: regular rate and rhythm, no murmurs noted Carotid arteries: negative bruit bilat Lab Results Anesthesia Preop Results Results Anesthesia Widget: WBC 8.37 K/ul (4.8-10.8) 07/01/22 Hgb 11.7 g/dl (12.0-16.0) L 07/01/22 Hct 35.5 % (34.1-44.9) 07/01/22 Plt 386 K/uL (130-400) 07/01/22 Na 138 mmol/L (136-145) 07/01/22 K 4.3 mmol/L (3.5-5.1) 07/01/22 Cl 108 mmol/L (98-107) H 07/01/22 CO2 25 mmol/L (21-32) 07/01/22 BUN 52 mg/dl (6-23) H 07/01/22 Creat 1.54 mg/dl (0.6-1.2) H 07/01/22 Glucose Level 265 mg/dl (70-99(Fasting)) H 07/01/22 PT 10.4 Seconds (9.0-12.0) 07/01/22 PTT 25.7 Seconds (21.0-31.0) 07/01/22 INR 1.0 (0.9-1.1) 07/01/22 TSH 1.159 uIu/ml (0.300-4.500) 06/04/22 HA1c 7.1 % (4.5-5.6) H 06/04/22 Urine Color Yellow 05/06/22 Urine Appearance Clear (Clear) 05/06/22 Urine pH 5.0 (4.5-7.5) 05/06/22 Urine Specific [place] 1.010 (1.000-1.030) 05/06/22 Urine Protein Negative (Negative) 05/06/22 Urine Glucose (UA) Negative (Negative) 05/06/22 Urine Ketones Negative (Negative) 05/06/22 Urine Blood Negative (Negative) 05/06/22 Urine Nitrite Negative (Negative) 05/06/22 Urine Bilirubin Negative (Negative) 05/06/22 Urine Urobilinogen Negative (Negative) 05/06/22 Urine Leukocyte Esterase Negative (Negative) 05/06/22 Blood Type A Positive 07/01/22 Antibody Screen NEGATIVE 07/01/22 Testing Electrocardiogram Date: 04/30/22 NSR, rate 83 bpm Voltage criteria for LVH Chest X-Ray Date: 06/12/22 Cardiomediastinal and hilar silhouettes are within normal limits. No pneumothorax, pleural effusion, airspace consolidation or overt pulmonary edema. Degenerative changes of the spine and left shoulder. Surgical clips of the upper abdomen. Right shoulder arthroplasty. IMPRESSION: No acute process. Echocardiogram Date: 07/07/20 EF 55-60% Mild cLVH Normal LV wall motion No significant valvular pathology Stress Test Date: 02/22/21 Pharmacologic MPHR 60% 1. Normal myocardial perfusion study with no Lexiscan induced ischemia. 2. Normal LV size and function. LVEF 66 % with no regional wall motion abnormalities. 3. Non-diagnostic stress ECG due to inability to reach target HR with Lexiscan. Other Testing PFT 04/07/22 Normal spirometry with preserved ratio. Total lung capacity lower limits of normal and diffusion capacity reduced. Ribs with chest x-ray 02/15/22 The cardiomediastinal silhouette is unremarkable. There is bibasilar atelectasis. No airspace consolidation or large pleural effusion is identified. No pneumothorax is seen. The skeletal structures are osteopenic. There are acute right anterolateral 6th and 7th rib fractures. The remainder of the bony thorax is grossly intact. A right shoulder arthroplasty is in place. Advanced arthritic change is noted in the left shoulder. Cholecystectomy clips are seen in the right upper quadrant. IMPRESSION: 1. The lungs are clear. 2. There are acute right anterolateral 6th and 7th fractures. Brain MRI 01/03/22 Brain parenchyma: There is age-related involutional change noting moderate subcortical and periventricular microangiopathic disease. There is no hemorrhage or mass effect. There is no restricted diffusion to suggest acute ischemia. Arnett-white matter differentiation is preserved. No extra-axial fluid collection is seen. The cerebellar tonsils are normal in configuration. Ventricles, sulci, and cisterns: Prominent secondary to involutional change. Pituitary and sella: Unremarkable. Intracranial vasculature: Normal flow voids are maintained at the skull base. Orbits: The bony orbits are grossly intact. Orbital contents are normal in appearance noting bilateral ocular lens implants. Sinuses and mastoids: Clear. Calvarium: A 1.5 cm cystic focus in the high left posterior parietal convexity is unchanged from prior studies. No destructive calvarial lesion is identified. Cervical cord: Partially visualized cervical spinal cord is normal in morphology and signal intensity. IMPRESSION: No acute intracranial abnormality.
[2022-07-12 14:56] LABS: Appearance Urine Clear (Clear); Bilirubin Urine Negative (Negative); Blood Urine Negative (Negative); Color Urine Yellow; Glucose Urine UA Negative (Negative); Ketones Urine Negative (Negative); Leukocyte Esterase Urine Negative (Negative); Nitrite Urine Negative (Negative); Protein Urine Negative (Negative); Specific Gravity Urine 1.016 (1.000-1.030); Urobilinogen Urine Negative (Negative)
--- NOTE | 2022-07-16 14:17 | History & Physical Report ---
Date of Service July 16, 2022 Assessment & Plan (1) DJD of left shoulder: Plan: Postoperative prescription for Percocet will be provided at discharge from the hospital. Postop appointment for suture removal has been made for 08/08 at 1:30 p.m. PDMP was checked and there were no concerning findings. She has already seen her PCP for medical clearance. She has already been through PAT for preoperative lab work, EKG and chest x-ray. The patient is aware of the COVID- 19 risks associated with surgery. She is currently asymptomatic of any COVID-19 symptoms. She will need placement post op as she lives alone. [facility] is preferred and arrangements will attempt to be made by the office. History of Present Illness Chief Complaint: Left shoulder pain Primary Care Provider: ZECHARIAH Tanner This 82-year-old female presents for her preoperative history and physical. She is scheduled to undergo a left total shoulder arthroplasty versus CTA head on 07/24/2022. The patient has had left shoulder pain for years. It has become worse with time. She was hoping to never have to undergo surgery, but realizes that her pain is interfering with her activities of daily living. She notes loss of motion. There is night pain. History of previous right total shoulder arthroplasty and has done well with it. She elects to proceed with the same on the left. Right-hand dominant. She denies any numbness or tingling. Allergies Allergy/AdvReac Type Severity Reaction Status Date / Time exenatide Allergy Unknown GI UPSET Verified 07/12/22 13:03 ibuprofen Allergy Unknown GI UPSET Verified 07/12/22 13:03 mirtazapine Allergy Unknown MOUTH/FACIAL Verified 07/12/22 13:03 SWELLING oxycodone Allergy Unknown GI UPSET Verified 07/12/22 13:03 AND IRRITATION phenol Allergy Unknown GI UPSET Verified 07/12/22 13:03 Sulfa (Sulfonamide Allergy Unknown PT DOESN'T Verified 07/12/22 13:03 Antibiotics) REMEMBER REACTION - MOTHER TOLD PT Home Medications Medication Instructions Recorded Confirmed Type acetaminophen 650 mg 650 - 1,300 mg PO Q12H PRN Pain 12/21/18 07/12/22 History tablet,extended release (Tylenol Arthritis Pain) cholecalciferol (vitamin D3) 25 1,000 unit PO QAM 11/02/19 07/12/22 History mcg (1,000 unit) capsule (Vitamin D3) latanoprost 0.005 % eye drops 1 drops ophthalmic (eye) HS 12/27/19 07/12/22 History ascorbic acid (vitamin C) 500 mg 500 mg PO QAM 05/03/20 07/12/22 History tablet aspirin 81 mg tablet,delayed 81 mg PO DAILY #30 tabs 09/14/20 07/12/22 Rx release clindamycin HCl 300 mg capsule 300 mg PO ONCE #7 caps 09/14/20 07/12/22 Rx multivitamin (Daily Multi-Vitamin 1 tab PO DAILY #30 tabs 09/14/20 07/12/22 Rx tablet) triamcinolone acetonide 0.1 % 1 applic topical BID #80 grams 12/20/20 07/12/22 Rx topical cream blood-glucose transmitter (Dexcom 04/06/21 07/12/22 History G6 Transmitter device) blood-glucose meter (FreeStyle #1 ea 04/16/21 07/12/22 Rx Lite Meter kit) blood-glucose sensor (Dexcom G6 #3 ea 05/07/21 07/12/22 Rx Sensor device) levothyroxine 88 mcg tablet 88 mcg PO QAM #90 tabs 07/03/21 07/12/22 Rx albuterol sulfate 90 mcg/actuation 2 puff inhalation Q4H PRN 07/24/21 07/12/22 Rx aerosol inhaler shortness of breath #1 inhaler fluticasone propionate 50 2 spray intranasal DAILY #3 ea 08/24/21 07/12/22 Rx mcg/actuation nasal spray,suspension rosuvastatin 10 mg tablet 10 mg PO HS #90 tabs 09/11/21 07/12/22 Rx pen needle, diabetic 32 gauge x See Rx Instructions .Route 12/10/21 07/12/22 Rx 5/32" (BD Ultra-Fine Vera Pen .COMPLEX #400 ea Needle) insulin glargine 100 unit/mL (3 8 unit subcut HS 12/26/21 07/12/22 History mL) subcutaneous pen (Lantus Solostar U-100 Insulin) insulin lispro 100 unit/mL 70 unit subcut .COMPLEX PRN 12/26/21 07/12/22 History subcutaneous pen (Humalog KwikPen Diabetes II (U-100) Insulin) calcitriol 0.25 mcg capsule 0.25 mcg PO .COMPLEX #36 caps 03/14/22 07/12/22 Rx amlodipine 5 mg tablet 5 mg PO DAILY #90 tabs 03/18/22 07/12/22 Rx escitalopram oxalate 20 mg tablet 20 mg PO HS 04/03/22 07/12/22 History (Lexapro) apixaban 5 mg (74 tabs) tablets in 2.5 mg PO BID 05/02/22 07/12/22 History a dose pack lancets 28 gauge (FreeStyle #100 ea 06/12/22 07/12/22 Rx Lancets) venlafaxine 75 mg capsule,extended 225 mg PO QAM 90 days #270 caps 06/19/22 07/12/22 Rx release 24 hr (Effexor XR) loratadine 10 mg tablet 10 mg PO DAILY #90 tabs 06/20/22 07/12/22 Rx FreeStyle Lite Strips (blood sugar #500 ea 07/14/22 Rx diagnostic) Past Med/Surg History Medical History (Updated 07/16/22 @ 14:16 by Rogerio Fan PA-C) 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 TOTAL HYSTER FOR DYSPLASIA History of tonsillectomy B/L History of total hip arthroplasty B/L History of total knee replacement L 02/25/18: SAB L4-L5 1 attempt + PNB. History of total shoulder replacement RIGHT Status post biopsy of kidney Family History Mother Depression Scoliosis Cancer Father Depression Lung cancer Cancer Grandmother Breast cancer Asthma Other Hearing loss Denies family history of Ovarian cancer Prostate cancer Myocardial infarction Colorectal cancer Social History Smoking Status: Former smoker Tobacco Type: Cigarettes Age Started Using Tobacco: 19; Age Quit Using Tobacco: 39; packs per day: 2; Second Hand Exposure: No; Hx Alcohol Use: Yes (h/o alcohol abuse; in remission x 35 yrs) Alcohol type Comment: no alcohol intake presently Hx Substance Use: No Preferred Language: Russian Communication Ability: Effective Welfare Interviewer Required: No Beliefs That Will Affect Care: Caodaism Caodaism Beliefs: Congregational horacio. marital status: / Current Living Situation: Alone Current Living Situation Comment: [facility], (Apartment complex in [place]). current occupational status: retired How many Children do You have: 1 Feels Safe at Home: Yes Assistive Devices: Cane Review of Systems Review of Systems: All systems reviewed & are unremarkable except as noted in HPI & below A total of 10 systems were reviewed Physical Exam Physical Exam: Vitals: Height 159.5 cm, weight 78.5, BMI 30.9. Temperature 36.1, BP 116/58, pulse 94, O2 sat 96% on room air. General: Well-developed, well-nourished elderly female in no acute distress. Sitting in a chair. Alert and oriented. Skin: Warm and dry with good turgor. No rashes or lesions. No edema. HEENT: Normocephalic, atraumatic. Eyes: PERRLA, EOMI. Nares and oropharynx e xams deferred due to COVID precautions. Heart RRR. No MGR. Lungs: Clear to auscultation bilaterally. No crackles, rhonchi or wheezing. Good air movement. Abdomen: Mildly obese. Bowel sounds present x4, soft, nontender. No organomegaly. No masses. Musculoskeletal: Left shoulder evaluation reveals no obvious deformity. There is limitation in motion. 45 degrees of abduction, 60 degrees of forward flexion, external rotation 10 degrees beyond neutral. Behind the back reach to low lumbar. There is pain with all of these. Strength is 5/5 for resisted internal rotation. It is 4/5 for resisted external rotation and abduction. There is crepitus palpable with motion. There is pain associated with Longoria testing and Neer impingement testing, but no drop arm. There is also pain with palpation over the proximal biceps tendon. Full elbow motion. Neurologic: Gross sensation is intact across the left arm by soft touch. Peripheral pulses are 2+. Results & Data Results & Data ([facility]) Diagnostic Findings Radiographic imaging previously obtained shows end-stage DJD of the left shoulder. There is no superior migration of the humeral head. Large osteophytes are noted. Code Status & VTE Plan VTE Prophylaxis Plan VTE Prophylaxis will be ordered: Yes
[~2022-07-24 06:16] MED LIST changes: -ACET650T49 PO; -ASPI81TA28 PO; -CHOL1000 PO; -CLR10 PO; -CRS/10 PO; -DIVA-36 PO; -EXEN1INJ3 SC; -FLUT0.15 INH; -INSDGIPEN SQ; -LATA0.5S OPB; -LEVO88TA3 PO; +LR 15ML/HR IV SCH; +LR 60ML/HR IV SCH; -MELA1TAB5 PO; -METF1000 PO; +MIDAZOLAM HCL 1 MG/ML 2ML VIAL ONE; -MULT-506 PO; -RXC5 PO; +SODIUM CHLORIDE 0.9% 1000ML IV SCH; -TRAM-10 PO; +TRANEXAMIC ACID 1,000 MG x 1 **For Topical Use TOP SCH; -VENL75CA88 PO; -WARF2TAB PO; +ceFAZolin 2000MG 2,000 MG/15 ML SYR IV SCH; +fentaNYL citrate 100 MCG/2 ML VIAL ONE
[2022-07-24] MEDS ORDERED: PROPOFOL IV EMULSION 10 MG/ML 20 ML VIAL IV ONE (06:21)
[2022-07-24] MEDS ORDERED: NEOSTIGMINE METHYLSULFATE 1 MG/ML 10ML VIAL ONE (06:21)
[2022-07-24] MEDS ORDERED: ONDANSETRON INJ 2 MG/ML 2 ML VIAL ONE (06:21)
[2022-07-24] MEDS ORDERED: ROCURONIUM BROMIDE 10 MG/ML 5 ML VIAL IV ONE (06:21)
[2022-07-24] MEDS ORDERED: GLYCOPYRROLATE 0.2 MG/ML VIAL ONE (06:21)
[2022-07-24] MEDS ORDERED: LIDOCAINE 2% MPF LOCAL 5 ML VIAL INFIL ONE (06:21)
--- NOTE | 2022-07-24 06:23 | History & Physical Bridge Note ---
Date of Service July 24, 2022 History & Physical Bridge Note I have examined the patient, reviewed the History & Physical and in the interval since the performance of the History & Physical I have noted the following changes of clinical significance: no changes noted
[2022-07-24] MEDS ORDERED: BUPIVACAINE 0.5 % 5 MG/1 ML PF 10ML VIAL ONE (06:33)
[2022-07-24] MEDS ORDERED: THROMBIN FOR SOLN 20000 UNIT KIT ONE (08:47)
[2022-07-24] MEDS ORDERED: SUCCINYLCHOLINE CHLORIDE 20 MG/ML 10 ML VIAL IV ONE (09:45)
[2022-07-24] MEDS ORDERED: PHENYLEPHRINE 100MCG/ML 5ML SYR ONE (09:46)
[2022-07-24] MEDS ORDERED: ePHEDrine sulfate 50 MG/ML AMP ONE (09:46)
[2022-07-24] MEDS ORDERED: PHENYLEPHRINE HCL 10 MG/ML VIAL ONE (10:28)
--- NOTE | 2022-07-24 11:21 | Post Operative Brief Note ---
Immediate Post Op Note v1 Date of Surgery July 24, 2022 Pre & Post Diagnosis Operation Date: 07/24/22 08:50 Pre-Op Diagnosis: Left Shoulder End-Stage Degenerative Joint Disease Post-Op Diagnosis: Left Shoulder End-Stage Degenerative Joint Disease I identified the patient and participated in the time-out.: Yes Procedure Operation Date: 07/24/22 08:50 Actual Procedures p Left Total Shoulder Arthroplasty--Cemented(Left) - Sadiq Serrano MD Surgeon Sadiq Serrano MD Sde Jaycob/Meng/Venu Estimated Blood Loss 100 Findings Consistent with Post-Op Diagnosis
--- NOTE | 2022-07-24 11:28 | Operative Report ---
Post Operative Report Pre & Post Diagnosis Operation Date: 07/24/22 08:50 Pre-Op Diagnosis: Left Shoulder End-Stage Degenerative Joint Disease Post-Op Diagnosis: Left Shoulder End-Stage Degenerative Joint Disease I identified the patient and participated in the time-out.: Yes Procedure Operation Date: 07/24/22 08:50 Actual Procedures p Left Total Shoulder Arthroplasty--Cemented(Left) - Sadiq Serrano MD Surgeon MARILEE Serrano MD Crime Prevention Police Officer Jaycob/Meng/Venu Estimated Blood Loss 100 Findings Consistent with Post-Op Diagnosis see operative report Specimens see operative report Drains none Complications none Disposition Accompanied Patient To Recovery: Yes Indications This 82 year old female presented to the office with complaints of severe left shoulder pain. She had tried conservative care measures without improvement. She elected to proceed with surgical intervention in hopes of improving her function and pain control after being educated about potential risks and outcomes. Preoperative imaging was obtained. Description of Procedure Patient was administered a regional block and then taken to the operating room where she was given general anesthesia. She was prepped and draped in the usual sterile fashion. Please see Dr. Serrano's operative report for specifics of the procedure. I was present for the entire case, from initial patient positioning through final wound closure. Assistance was provided in tissue retraction, hemostasis, trial implant placement, final implant placement, and final wound closure. Patient was then taken to the recovery room in satisfactory condition. I attest to the content of the Intraoperative Record and any orders documented therein. Any exceptions are noted below.
--- NOTE | 2022-07-24 11:32 | Operative Report ---
Post Operative Report Pre & Post Diagnosis Operation Date: 07/24/22 08:50 Pre-Op Diagnosis: Left Shoulder End-Stage Degenerative Joint Disease Post-Op Diagnosis: Left Shoulder End-Stage Degenerative Joint Disease I identified the patient and participated in the time-out.: Yes Procedure Operation Date: 07/24/22 08:50 Actual Procedures p Left Total Shoulder Arthroplasty--Cemented(Left) - Sadiq Serrano MD Surgeon Sadiq Serrano MD Quantitative Associate Jaycob/Meng/Venu Estimated Blood Loss 100 Findings Consistent with Post-Op Diagnosis Specimens None Complications none Disposition Accompanied Patient To Recovery: Yes Disposition: Recovery Room Description of Procedure Patient was taken to the operating room where anesthesia was administered. Patient was prepped and draped in the usual sterile fashion. Please see att ending's operative report for specifics of the procedure. I was present for the entire case from initial patient positioning through final wound closure. Assistance was provided in tissue retraction, hemostasis, and final wound closure. Patient was taken to the recovery room in satisfactory condition. I attest to the content of the Intraoperative Record and any orders documented therein. Any exceptions are noted below.
[2022-07-24] MEDS ORDERED: ePHEDrine sulfate 50 MG/ML AMP IV PRN (11:40)
[2022-07-24] MEDS ORDERED: ATROPINE SULFATE 0.1 MG/ML 10ML SYR IV PRN (11:40)
[2022-07-24] MEDS ORDERED: ONDANSETRON INJ 2 MG/ML 2 ML VIAL IV PRN ×2 (11:40→13:44)
[2022-07-24] MEDS ORDERED: LABETALOL HCL IV 5 MG/ML 20ML IV PRN (11:40)
[2022-07-24] MEDS ORDERED: FLUMAZENIL 0.1 MG/1 ML 10 ML VIAL IV PRN (11:40)
[2022-07-24] MEDS ORDERED: fentaNYL citrate 100 MCG/2 ML VIAL IV PRN (11:40)
[2022-07-24] MEDS ORDERED: NALOXONE HCL 0.4 MG/1 ML VIAL/CARP IV PRN ×2 (11:40→13:44)
[2022-07-24] MEDS ORDERED: PROMETHAZINE HCL 12.5 MG in SODIUM CHLORIDE 0.9% 50 ML IV PRN (11:40)
--- NOTE | 2022-07-24 11:55 | Progress Notes ---
DATE OF SERVICE: 07/24/2022. SUBJECTIVE: Postop check status post left total shoulder replacement. Patient is resting comfortably. Wound dressing clean, dry and intact. Arm is in the sling. Block is working well. Postop x-ray looks excellent. ASSESSMENT: Doing well status post left total shoulder replacement. Continue with care pathway. Di elizabethrge to rehab tomorrow based on multiple comorbidities. Resume her Eliquis carefully, try to prev ent wound hematoma. We will place in a Prevena and leave it on for a week. Job ID: [id number]
--- NOTE | 2022-07-24 12:03 | XRay Report ---
SINGLE VIEW LEFT SHOULDER CLINICAL HISTORY: Postoperative examination. FINDINGS: An AP view of the left shoulder is obtained. The skeletal structures are osteopenic. A left shoulder arthroplasty is in near anatomic alignment. No acute fracture is seen. Skin clips, subcutan eous gas, and soft tissue swelling overlying the left shoulder are expected postoperative changes. At electasis is noted at the left lung base. IMPRESSION: Expected postoperative findings status post left shoulder arthroplasty. No acute fracture is seen. Electronically signed by: Monty Harris M.D. 07/24/2022 12:02 PM
--- NOTE | 2022-07-24 12:13 | Operative Report (OR) ---
DATE OF PROCEDURE: 07/24/2022. SURGEON: Sadiq Serrano MD. APPLICATION DESIGNER: Jaycob. SECOND APPLICATION DESIGNER: Rogerio Fan PA-C. THIRD APPLICATION DESIGNER: Venu, medical student. PREOPERATIVE DIAGNOSIS: Osteoarthritis, left shoulder. POSTOPERATIVE DIAGNOSIS: Osteoarthritis, left shoulder. OPERATION PERFORMED: Hybrid total shoulder replacement, cemented glenoid, porous coated humerus. SUMMARY OF IMPLANTS: Size 40 keeled glenoid 10 Porocoat stem, 40 x 21 head. One batch of Palacos G cement. PERIOPERATIVE SITUATION: Medically cleared female with long history of multiple medical comorbiditie s including amyloidosis who has multiple joint replacements. At this point in time, wants shoulder r eplacement. She has significant stiffness and pain. Preoperative range of motion was poor with forwa rd flexion to 50, abduction to 30, internal rotation strength 5, external rotation strength 4+, abduc tion strength initiates strong 4, but decreases secondary to discomfort. Humeral head height is good , so it was elected to proceed with anatomic shoulder replacement. She had the opposite side as similar procedure. DESCRIPTION OF PROCEDURE: After the patient was appropriately identified, site verified, consent rodrigo ified, antibiotics were confirmed as being given. The left upper extremity was examined revealing no instability. She had external rotation with the arm at the side to 35-40 degrees, forward flexion t o 110 degrees, abduction the same, had significant crepitation with range. She was then placed in a gentle beachchair position. Left upper extremity prepped and draped in usual routine fashion. A del topectoral approach was made. The cephalic vein was preserved and retracted with the deltoid. Clavi pectoral fascia was opened and retractors placed. She was very small and very petite so was a tough exposure. Subscap peel back was then performed. It was tagged with #1 Ethibond. Humeral head was t hen cut, it was then revised, cut. The labrum was then excised. The glenoid was pretty much down to raw bone. The humeral head was down to raw bone. Huge osteophyte off the humerus was carefully and tediously dissected off working on the humeral bone only trying to avoid any type of injury to the ax illary nerve. It was felt to palpate, but not exposed. Once this osteophytes in the humeral head were resected, the capsule released. Appropriate acetabula r exposure was made. The glenoid was extremely small and the smallest glenoid is 40 and that was jus t about right. A slotted keel was made. It was carefully, tediously dissected out. Trying not to f racture the endplates on the anterior posterior surface of the scapula and then the keeled implant se ated fully. It was then cemented into position after hemostasis was obtained using thrombin for 12 m inutes. It was press fit and then after that minor cement removal was carried out. There was no exc ess issues. The implant was stable to pressure. Humerus was then extended and placed into the wound and serial broaching carried up to a 10 and then the trial reduction with a 21 head gave us the best positioning. Seating holes were then made in the lesser tuberosity. Sutures were placed and then the implant placed through the sutures and then imp acted into position. They were tensioned appropriately. The implant sat well on the humeral neck. The permanent head was then seated and impacted into position. The humerus was then reduced into the glenoid. Appropriate positioning was obtained. Everything looked good. The wound was irrigated on e final time including TXA and then the subscapularis closed with an excellent repair through bone. Additional tag sutures were also used to create an oversew and a tension band effect. Repair was exc ellent. The arm could be placed through range of motion from belly to 40 degrees with no issues. Th e wound was irrigated one final time and then closed with 2-0 plain and stainless steel clips. Appro priate dressing applied. The patient was transferred to recovery room in satisfactory condition, hav ing tolerated the procedure well. Pathology pending on bone. ESTIMATED BLOOD LOSS: Roughly 100 mL CRYSTALLOID: Per anesthesia. DVT prophylaxis with mobilization per protocol. Job ID: [id number]
--- NOTE | 2022-07-24 12:25 | Discharge Summary (DS) ---
DATE OF ADMISSION: 07/24/2022. DATE OF POTENTIAL DISCHARGE: 07/25/2022. CHIEF COMPLAINT: Left shoulder pain. HISTORY OF PRESENT ILLNESS: Underwent elective left total shoulder replacement. She at this point in time is also going to be admitted to [facility] secondary to comorbidities. So far, she is doing well. She has no major issues intraoperatively. PREADMISSION History ALLERGIES: Extensive, include EXENATIDE, IBUPROFEN, MIRTAZAPINE, OXYCODONE, PHENOL, SULFA. HOME MEDICATIONS: Include Tylenol, vitamin D, latanoprost eye drops, vitamin C, baby aspirin, clindamycin p.r.n., multivitamin, triamcinolone topical cream, levothyroxine, albuterol, fluticasone propionate nasal spray, rosuvastatin, insulin, amlodipine, Lexapro, Eliquis, lancets, loratadine, and Effexor. PAST MEDICAL HISTORY: Remarkable for amyloidosis, anemia, anxiety, depression, ataxia, degenerative disk disease, chronic kidney disease, diabetes mellitus, glaucoma, history of alcohol use, diabetic neuropathy, hypertension, hypothyroidism, kidney fibrosis, history of pulmonary embolism. PAST SURGICAL HISTORY: Remarkable for appendectomy, adenoidectomy, bone marrow biopsy, bunion surgery, cataract surgery, bilateral hip replacements, knee replacement, kidney biopsy. FAMILY HISTORY: Mother has a history of depression, scoliosis, cancer. Father has same. Denies a history of ovarian, prostate, myocardial infarction. REVIEW OF SYSTEMS: Reveals no chest pain, shortness of breath, fever, chills, nausea, vomiting or headache. ASSESSMENT: Doing reasonably well status post left total shoulder replacement. Will follow up care pathway overnight. If she does well, we will discharge to [facility]. She will do no active internal rotation for 4 weeks. She can do passive range of motion, forward flexion to 30, abduction 30, rotation from belly to 0 degrees. There should be no stress on her subscapularis muscle for the first month. She can flex and extend her elbow fully and use her hand and wrist fully. Follow up in 1 week after the Prevena was placed to try to prevent wound complications from her Eliquis. Job ID: [id number] [facility]
--- NOTE | 2022-07-24 12:52 | Anesthesiology Progress Note ---
Date of Service July 24, 2022 Anesthesia Post Procedure Vital Signs Vital Signs: Temp Pulse Pulse Resp BP Pulse Ox O2 Del Method 07/24/22 12:40 36.5 C 91 H 18 152/70 H 97 Nasal Cannula 07/24/22 12:30 84 18 152/61 H 97 Nasal Cannula 07/24/22 12:20 78 18 148/68 H 98 Nasal Cannula 07/24/22 12:10 81 18 147/65 H 98 Nasal Cannula 07/24/22 11:50 79 18 145/82 H 93 Room Air 07/24/22 11:40 85 18 152/68 H 97 Oxymask 07/24/22 12:00 77 20 143/79 H 96 Nasal Cannula 07/24/22 11:30 89 20 143/64 H 97 Oxymask 07/24/22 11:26 36.0 C L 92 H 16 183/82 H 96 Oxymask 07/24/22 08:50 73 18 125/52 L 100 Oxymask 07/24/22 06:48 37.0 C 75 18 130/72 97 Room Air O2 Flow Rate 07/24/22 12:40 2 07/24/22 12:30 2 07/24/22 12:20 2 07/24/22 12:10 2 07/24/22 11:50 07/24/22 11:40 6 07/24/22 12:00 2 07/24/22 11:30 6 07/24/22 11:26 6 07/24/22 08:50 5 07/24/22 06:48 Pain Intensity Left Shoulder: Pain Intensity: 0 Transfer of Care Handoff Completed per policy Notes Mental Status: alert / awake / arousable Patient Amnestic to Procedure: Yes Nausea / Vomiting: adequately controlled Pain: adequately controlled Airway Patency, RR, SpO2: stable & adequate BP & HR: stable & adequate Hydration State: stable & adequate Anesthetic Complications: no major complications apparent
[2022-07-24] MEDS ORDERED: METOCLOPRAMIDE HCL INJ 5 MG/ML 2 ML VIAL IV PRN (13:44)
[2022-07-24] MEDS ORDERED: VANCOMYCIN CONSULT ACTIVE PRN (13:44)
[2022-07-24] MEDS ORDERED: bisacodyL 10 MG SUPP PR PRN (13:44)
[2022-07-24] MEDS ORDERED: PHARMACY GLYCEMIC MGMT CONSULT PRN (13:44)
[2022-07-24] MEDS ORDERED: diphenhydrAMINE 50 MG/ML VIAL IV PRN (13:44)
[2022-07-24] MEDS ORDERED: MAGNESIUM HYDROXIDE SUSP 30 ML UDC PO PRN (13:44)
[2022-07-24] MEDS ORDERED: ALUMINUM/MAGNESIUM SUSP 30 ML UDC PO PRN (13:44)
[2022-07-24] MEDS ORDERED: HYDROmorphone INJ 0.5 MG/0.5 ML SYR IV PRN (13:44)
[2022-07-24] MEDS ORDERED: ALBUTEROL HFA 8 GM INHALER INH PRN (13:44)
[2022-07-24] MEDS: ACETAMINOPHEN 500 MG TAB PO SCH ×3 (14:09→22:10)
[2022-07-24] MEDS: SODIUM CHLORIDE 0.9% 1000ML 1,000 ML IV SCH (14:09)
[2022-07-24] MEDS ORDERED: GLUCAGON FOR INJ 1 MG VIAL IM PRN (14:30)
[2022-07-24] MEDS ORDERED: GLUCOSE 40% GEL 15 GM TUBE PO PRN (14:30)
[2022-07-24] MEDS ORDERED: DEXTROSE 50% 50 ML SYRINGE IV PRN (14:30)
[2022-07-24] MEDS ORDERED: GLUCOSE 10 TAB/TUBE PO PRN (14:30)
[2022-07-24] MEDS ORDERED: CARBOHYDRATES FOR HYPOGLYCEMIA PO PRN (14:30)
--- NOTE | 2022-07-24 14:32 | Pharmacy Report ---
Pharmacy Glycemic Short Note 2 - Date of Service July 24, 2022 - Glycemic Short BSG Results (Last 24 hours): 07/24/22 07/24/22 06:43 11:28 POC Glucose 173 H 178 H OUTPATIENT ANTIDIABETIC REGIMEN: * LANTUS 8 UNITS HS * HUMALOG 11 UNITS @ 0800, 12 UNITS @ 1200, 11 UNITS @ 1700, PLUS SLIDING SCALE ASSESSMENT: * Patient is POD #0 for total shoulder replacement, T2DM, pharmacy consulted for glycemic control * Home regimen is bolus heavy, will aim for a more balanced regimen, appears patient received 10 units of basal insulin last evening, will use a sliding scale for tonight as unsure of PO intake * Dexamethasone 6mg ordered for tomorrow morning, may consider adding some NPH for steroid induced hyperglycemia, does not appear any steroids were ordered intraoperatively PLAN FOR INPATIENT GLYCEMIC CONTROL: * Hold outpatient oral diabetes medications * Basal insulin * Lantus 5-10 units SQ HS * Bolus insulin * NovoLog per scale ACHS or Q6hrs while NPO * Goal Range: Low 110 mg/dL - High 140 mg/dL * Correction Factor: 25 mg/dL/unit * Nutritional / Prandial insulin per carb ratio of 1 unit per 9 grams CHO consumed
[2022-07-24] MEDS ORDERED: COUGH DROP (SUGAR FREE) LOZ 24 LOZ/1 BOX BUCCAL STA (16:12)
[2022-07-24] MEDS: FERROUS GLUCONATE 324 MG TAB PO SCH (16:25)
[2022-07-24] MEDS: ASCORBIC ACID 500 MG TAB PO SCH (16:25)
[2022-07-24] MEDS ORDERED: NON-FORMULARY MEDICATION (Blood-Glucose Sensor [Dexcom G6 Sensor] device) SCH (16:30)
[2022-07-24] MEDS ORDERED: NON-FORMULARY MEDICATION (Blood-Glucose Transmitter [Dexcom G6 Transmitter] device) SCH (16:30)
[2022-07-24] MEDS: INSULIN ASPART PER UNIT SC SCH ×3 (17:29→22:11)
[2022-07-24] MEDS: ceFAZolin 2000MG 2,000 MG/15 ML SYR IV SCH (17:38)
[2022-07-24] MEDS: TRIAMCINOLONE ACET 0.1% CR 15 GM TUBE TOP SCH (20:12)
[2022-07-24] MEDS: DOCUSATE SODIUM 100 MG CAP PO SCH (20:13)
[2022-07-24] MEDS ORDERED: SENNA 8.6 MG TAB PO SCH (21:00)
[2022-07-24] MEDS ORDERED: ESCITALOPRAM OXALATE 20 MG TAB PO SCH (21:00)
[2022-07-24] MEDS ORDERED: LATANOPROST 0.005% OP SOLN 2.5 ML BTL OP SCH (21:00)
[2022-07-24] MEDS ORDERED: LANTUS PER UNIT CHARGE SQ SCH (21:00)
[2022-07-24] MEDS ORDERED: ROSUVASTATIN CALCIUM 10 MG TAB PO SCH (21:00)
[2022-07-24] MEDS ORDERED: VANCOMYCIN HCL 1,250 MG in SODIUM CHLORIDE 0.9% 250 ML IV SCH (22:00)
[2022-07-24] MEDS: oxyCODONE HCL IR 5 MG TAB (IMMEDIATE RELEASE) PO PRN (22:10)
[2022-07-25] MEDS: ceFAZolin 2000MG 2,000 MG/15 ML SYR IV SCH (01:30)
[2022-07-25] MEDS: SODIUM CHLORIDE 0.9% 1000ML 1,000 ML IV SCH (01:56)
[2022-07-25] MEDS: ACETAMINOPHEN 500 MG TAB PO SCH (05:12)
[2022-07-25 07:50] LABS: Basophils # (auto) 0.07 K/uL (0-0.2); Basophils % (auto) 0.7 %; Eosinophils # (auto) 0.25 K/uL (0-0.50); Eosinophils % (auto) 2.6 %; Hematocrit (blood only) 31.5 % (34.1-44.9); Hemoglobin 10.4 g/dl (12.0-16.0); Immature Granulocytes # (auto) 0.04 K/uL (0.00-0.02); Immature Granulocytes % (auto) 0.4 %; Lymphocytes # (auto) 1.47 K/uL (1.2-3.4); Lymphocytes % (auto) 15.2 %; Mean Corpuscular Hemoglobin 31.5 pg (25.0-34.0); Mean Corpuscular Volume 95.5 fL (80.0-100.0); Mean Platelet Volume 8.8 fL (9.4-12.3); Monocytes # (auto) 1.09 K/uL (0.24-0.82); Monocytes % (auto) 11.3 %; Neutrophils # (auto) 6.72 K/uL (1.4-6.5); Neutrophils % (auto) 69.8 %; Platelet Count 321 K/uL (130-400); RDW Coefficient of Variation 15.1 % (11.5-14.5); White Blood Count 9.64 K/ul (4.8-10.8)
[2022-07-25] MEDS ORDERED: dexAMETHasone 6 MG in SYRINGE 0 ML IV SCH (08:00)
--- NOTE | 2022-07-25 08:09 | Progress Notes ---
DATE OF SERVICE: 07/24/2022 SUBJECTIVE: Postop check status post left total shoulder replacement. The patient is comfortable. She is up ambulatory using the bathroom. She denies any chest pain, adolfo rtness of breath, fever, chills, nausea, vomiting or headache. She states the block wore off after about 12 hours. She has used one pain medicine orally. OBJECTIVE: VITAL SIGNS: Stable. She is afebrile. Neurovascular check reveals intact median, radial and ulnar, suprascapular and axillary nerves. Woun d dressing clean, dry and intact. Arm is in the sling with a belly band. Calves are nontender. Abdomen soft, nontender. ASSESSMENT AND PLAN: Doing well status post left total shoulder replacement. Neurovascular check re veals intact nerves in all distributions. At this point in time, she needs to wear the sling with a belly band at all times. She should not do any active or resisted internal rotation. Passive motion only and within the following guidelines, abduction 30 degrees, forward flexion 30 degrees, no exten roney. Can flex and extend her elbow out of the sling with supervision. Can do the same with wrist a nd hand. No active motion with the shoulder for 3-4 weeks. Keep these guidelines for the first 2 we eks. Follow up in 2 weeks for staple removal or Prevena for the first week based on the high risk of wound swelling and bleeding from her Eliquis based on her high risk from pulmonary embolism history. Call with any questions. Job ID: [id number]
[2022-07-25 08:18] LABS: BUN Creatinine Ratio 22.8 (10-20); Calcium 8.7 mg/dl (8.5-10.1); Creatinine Clr Calc Pharmacy 27.2 ml/min; Est GFR (African American) 34.4 ml/min; Est GFR (Non-African American) 29.7 ml/min; Potassium 4.5 mmol/L (3.5-5.1)
[2022-07-25] MEDS ORDERED: MULTIVITAMIN TAB PO SCH (09:00)
[2022-07-25] MEDS ORDERED: amLODIPine BESYLATE 5 MG TAB PO SCH (09:00)
[2022-07-25] MEDS ORDERED: ASPIRIN 81 MG ECTAB PO SCH (09:00)
[2022-07-25] MEDS ORDERED: VENLAFAXINE HCL XR 75 MG CAPXR PO SCH (09:00)
[2022-07-25] MEDS ORDERED: LEVOTHYROXINE SODIUM 88 MCG TABLET PO SCH (09:00)
[2022-07-25] MEDS ORDERED: LANTUS PER UNIT CHARGE SQ ONE (09:00)
[2022-07-25] MEDS ORDERED: FLUTICASONE PROPIONATE NA SPR 16 GM BTL NAE SCH (09:00)
[2022-07-25] MEDS ORDERED: APIXABAN 2.5 MG TAB PO SCH (09:00)
[2022-07-25] MEDS ORDERED: LORATADINE 10 MG TAB PO SCH (09:00)
[2022-07-25] MEDS: INSULIN ASPART PER UNIT SC SCH (09:09)
[2022-07-25] MEDS: FERROUS GLUCONATE 324 MG TAB PO SCH (09:15)
[2022-07-25] MEDS: ASCORBIC ACID 500 MG TAB PO SCH (09:15)
[2022-07-25] MEDS: DOCUSATE SODIUM 100 MG CAP PO SCH (09:16)
[2022-07-25] MEDS: TRIAMCINOLONE ACET 0.1% CR 15 GM TUBE TOP SCH (09:17)
[2022-07-25] MEDS: oxyCODONE HCL IR 5 MG TAB (IMMEDIATE RELEASE) PO PRN (09:30)
--- NOTE | 2022-07-25 09:34 | Orthopedic Progress Note ---
Date of Service July 25, 2022 Assessment & Plan (1) Status post replacement of left shoulder joint: Plan: Patient's dressing was changed today and Prevena wound VAC was placed. She will keep this on for a week. Follow-up with me next Friday in the office at 2 PM for removal. Anticipate discharge to [facility] today. Motion restrictions were emphasized to her and were written in her discharge instructions. Passive abduction to 30 degrees and passive forward flexion to 30 degrees only. No external rotation beyond neutral. No internal rotation beyond her belly. She may do active motion of the fingers, wrist, and elbow. Use the sling at all times. Admission and Anticipated Discharge Date Admission Date: July 24, 2022 Subjective Patient is seen in her room this morning. She states the block worked very well overnight. She thinks it lasted over 12 hours. She has some mild left shoulder pain at this point. Denies any chest pain, shortness of breath, nausea, or vomiting. No abdominal pain. She is hoping to go to [facility] today. Review of Systems Review of Systems: Unchanged from yesterday. Physical Exam Physical Exam: General: Well-developed, well-nourished, elderly white female, in no acute distress. Sitting in bed. Alert and oriented. She just finished breakfast. Conversive. Skin: Warm dry with good turgor. No rashes. Patient has an intact surgical dressing on her left shoulder. Musculoskeletal: Upon removal of her postsurgical dressing, there is scant dried blood on her inner dressings. No active bleeding. Expected postoperative ecchymosis and edema. She has intact motor function to her fingers and wrist of the left arm. Wrist supination and pronation are intact. She has no significant discomfort with passive motion of the elbow. She does complain of shoulder pain with attempted active motion of the elbow. No motion of the shoulder was performed. Neurologic: Gross sensation is intact across the digits of the left hand, though she complains of some tingling in the thumb through ring fingers. Normal sensation in the little finger. Peripheral pulses are 2+. Results & Data ([facility]) Vital Signs (Past 12 Hours) Vital Signs Temp Pulse Resp BP Pulse Ox O2 Del Method 07/25/22 08:55 37.0 C 89 18 128/71 94 Room Air 07/25/22 08:23 36.7 C 92 H 24 128/72 90 Room Air 07/25/22 04:04 36.8 C 87 20 151/83 H 93 Room Air 07/25/22 01:00 36.9 C 89 18 148/76 H 94 Room Air Laboratory Results CBC this morning shows a white count of 9.6. H&H of 10.4 and 31.5. Platelets 321,000. PRP shows sodium 138, potassium 4.5, chloride 109, and CO2 25. BUN of 37 and creatinine 1.62. These are consistent with preop values. Glucose this morning was 185.
--- NOTE | 2022-07-25 09:58 | Pharmacy Report ---
Pharmacy Glycemic Short Note 2 - Date of Service July 25, 2022 - Glycemic Short BSG Results (Last 24 hours): 07/24/22 07/24/22 07/24/22 11:28 16:49 20:43 Glucose POC Glucose 178 H 155 H 166 H 07/25/22 07/25/22 07:25 08:01 Glucose 186 H POC Glucose 185 H OUTPATIENT ANTIDIABETIC REGIMEN: * LANTUS 8 UNITS HS * HUMALOG 11 UNITS @ 0800, 12 UNITS @ 1200, 11 UNITS @ 1700, PLUS SLIDING SCALE ASSESSMENT: 07/25 * Fasting elevated this morning, will give 10 units of lantus this AM, dex 6 mg ordered * Tightened novolog to weight based stress of 3 w/ steroid * Monitor for changes 07/24 * Patient is POD #0 for total shoulder replacement, T2DM, pharmacy consulted for glycemic control * Home regimen is bolus heavy, will aim for a more balanced regimen, appears patient received 10 units of basal insulin last evening, will use a sliding scale for tonight as unsure of PO intake * Dexamethasone 6mg ordered for tomorrow morning, may consider adding some NPH for steroid induced hyperglycemia, does not appear any steroids were ordered intraoperatively PLAN FOR INPATIENT GLYCEMIC CONTROL: * Hold outpatient oral diabetes medications * Basal insulin * Lantus 5-10 units SQ HS, 10 units this AM x 1 * Bolus insulin * NovoLog per scale ACHS or Q6hrs while NPO * Goal Range: Low 110 mg/dL - High 140 mg/dL * Correction Factor: 20 mg/dL/unit * Nutritional / Prandial insulin per carb ratio of 1 unit per 7 grams CHO consumed
== END 2022-07-25 12:17 ==
LOC: ASU 06:16 → 3E 06:16

== ENCOUNTER 2024-11-15 14:33 | Inpatient (IN) ==
[2024-11-15 15:06] LABS: Basophils # (auto) 0.13 K/uL (0.00-0.20); Basophils % (auto) 1.6 %; Eosinophils # (auto) 0.56 K/uL (0.00-0.50); Eosinophils % (auto) 6.9 %; Hematocrit (blood only) 36.6 % (37.0-47.0); Hemoglobin 12.3 g/dl (12.0-16.0); Immature Granulocytes # (auto) 0.02 K/uL (0.01-0.20); Immature Granulocytes % (auto) 0.2 %; Lymphocytes % (auto) 24.5 %; Mean Corpuscular Hemoglobin 30.1 pg (25.0-34.0); Mean Corpuscular Hgb Conc 33.6 g/dL (32.0-36.0); Mean Corpuscular Volume 89.7 fL (80.0-100.0); Mean Platelet Volume 8.8 fL (9.4-12.4); Monocytes # (auto) 0.76 K/uL (0.11-0.59); Monocytes % (auto) 9.3 %; Neutrophils % (auto) 57.5 %; Platelet Count 509 K/uL (130-400); RDW Coefficient of Variation 14.3 % (11.5-14.5); RDW Standard Deviation 46.9 fL (36.4-46.3); Red Blood Count 4.08 M/uL (4.20-5.40); White Blood Count 8.17 K/ul (4.8-10.8)
[2024-11-15 15:24] LABS: Alanine Aminotransferase 28 U/L (7-52); Albumin Globulin Ratio 1.4 (0.9-2); Albumin Level 4.1 gm/dl (3.4-5.0); Alkaline Phosphatase 41 U/L (34-104); Anion Gap 8 (3-11); Aspartate Aminotransferase 23 U/L (13-39); BUN Creatinine Ratio 27.8 (10-20); Bilirubin,Total 0.5 mg/dl (0.2-1.0); Blood Urea Nitrogen 45 mg/dl (6-23); Calcium 10.1 mg/dl (8.6-10.3); Carbon Dioxide 24 mmol/L (21-32); Chloride 103 mmol/L (98-107); Globulin 2.9 gm/dl (2.5-4.0); Glucose 182 mg/dl (70-99(Fasting)); Lipase 26 U/L (11-82); Magnesium 2.3 mg/dl (1.7-2.4); Potassium 3.7 mmol/L (3.5-5.1); Sodium 135 mmol/L (136-145)
[2024-11-15] MEDS: SODIUM CHLORIDE 0.9% 1,000 ML IV ONE (15:31)
[2024-11-15] MEDS: ONDANSETRON INJ 2 MG/ML 2 ML VIAL IV STA (15:31)
[2024-11-15 17:30] LABS: Appearance Urine Clear (Clear); Bilirubin Urine Negative (Negative); Blood Urine Negative (Negative); Color Urine Yellow; Glucose Urine UA 3+ (Negative); Ketones Urine Negative (Negative); Leukocyte Esterase Urine Negative (Negative); Nitrite Urine Negative (Negative); Protein Urine Negative (Negative); Specific Gravity Urine 1.023 (1.000-1.030); Urobilinogen Urine Negative (Negative)
--- NOTE | 2024-11-15 17:48 | Emergency Department Note ---
Impression & Plan Generalized weakness, Ambulatory dysfunction ED Provider Note HISTORY OF PRESENT ILLNESS: Patient is an 84-year-old female presenting with generalized weakness. Patient reports that she has had progressively worsening weakness over the last week. She has had a tough few weeks after being diagnosed with a rectovaginal abscess 3 weeks ago. Her abscess was lanced at [facility] 3 weeks ago and she was started on an antibiotic. She had follow-up with her primary care provider and her antibiotic was switched, but she started having vomiting as a side effect of the second antibiotic and was switched back to the initial antibiotic. She states that her rectal and perineal pain has significantly improved, but she is now feeling very lethargic and weak. Reports she has not had a bowel movement in the last 7 days. She states that her bilateral lower extremities are very swollen. She states that she is having difficulties getting around her house. Reports that she lives alone. She states that she is only urinated twice in the last 24 hours. She has a history of CKD stage IV. She reports she "does not feel like myself." Denies any notable fevers. Denies any chest pain or shortness of breath. She reports some slight nausea but denies any vomiting or diarrhea in the last 24 hours. Denies any recent sick contact exposures. Patient reports she is on Eliquis daily. ROS: as above PHYSICAL EXAM: Constitutional: Patient appears in no acute distress. HENT: Head: Normocephalic and atraumatic. Eyes: EOMI, PERRL Mouth/Throat: Mucous membranes moist. Neck: Trachea midline. Neck supple. Cardiovascular: RRR, No murmurs, rubs or gallops. Intact distal pulses. Pulmonary/Chest: No respiratory distress. Breath sounds clear and equal bilaterally. No wheezes or rales. Abdominal: Abdomen soft, no tenderness, rebound or guarding. Musculoskeletal: No tenderness or deformity noted. +1 pitting edema of bilateral lower extremities extending to the ankles. Skin: Warm and dry. No rash, erythema, pallor or cyanosis Psychiatric: Appropriate mood and affect for situation. Neurological: Alert and keenly responsive. CN II-XII grossly intact, moving all extremities equally and fully. MDM: - Vitals signs showed hypertension - History obtained via patient. History as above. - Chronic conditions affecting care: DM-2; MGUS; depression; hypothyroidism; HLD; HTN - Differential diagnoses include, but are not limited to: UTI; pneumonia; viral syndrome; bacteremia; CVA; intracranial hemorrhage; ACS - Order placed for continuous cardiac monitoring. At this time, monitor showed rate of 91 bpm with normal sinus rhythm, per my interpretation. - External medical records reviewed. Primary care visit note from today was reviewed. Patient was seen today for follow-up. Patient has had gluteal abscess for several weeks and has had improvement of her pain in this area. However, she is having significant weakness. She was referred to the emergency department for further evaluation. - EKG image interpreted by myself showed normal sinus rhythm. Rate 86 bpm. QT 352. No acute ischemic changes. - Laboratory workup interpreted by myself showed normal WBC; slight hyponatremia (Na 135); CKD (Cr 1.62); normal lipase; normal AST/ALT; normal troponin; normal TSH - UA negative for infection. Noted to have significant glucosuria. - Viral respiratory panel negative - CXR image reviewed by myself is negative for pneumonia. - Patient given 1L NS and 4 mg IV zofran. - Blood cultures obtained - Patient reports that she lives alone and is afraid to go home secondary to being so weak and not being able to do her activities of daily living. - Discussion was had with supportive employment case manager about patient's case and need for admission - Hospitalist consulted for admission - [facility] ASSESSMENT AND PLAN: Diagnosis: Generalized weakness; ambulatory dysfunction Plan: admit Past Med/Surg History Problem List (Updated 11/15/24 @ 19:40 by Candace Ashley MD) Ambulatory dysfunction (Acute) Generalized weakness (Acute) Gastroenteritis (Acute) Type 2 diabetes mellitus with chronic kidney disease Type 2 diabetes mellitus with obesity MGUS (monoclonal gammopathy of unknown significance) Vertigo Lumbar radicular pain Chronic cerebral ischemia Depression with anxiety Mild cognitive impairment Diabetic polyneuropathy Sensory ataxia Major depression PTSD (post-traumatic stress disorder) Gait instability Disequilibrium History of pulmonary embolism Interstitial lung disease Type 2 diabetes mellitus with neurologic complication, 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 SOB (shortness of breath) on exertion (Chronic) Chronic anticoagulation Controlled type 2 diabetes mellitus, with long-term current use of insulin Chronic kidney disease, stage IV (severe) Metabolic syndrome Obesity Hypothyroidism (Chronic) Anxiety and depression (Chronic) Dyslipidemia (Chronic) Allergic rhinitis due to allergen HTN (hypertension) controlled, stable per pt Balance problem Degenerative disc disease, lumbar Glaucoma Anemia (Acute) Chronic and stable- Hgb in 11 range since Oct 2019 (06/25/22)-had iron infusions x 3; 1 per week since 05/2022 follows w/ [facility] heme/onc Medical History History of rib fracture (~02/15/22) History of alcohol use disorder On anticoagulant therapy History of anesthesia reaction Ataxia Lumbar spondylosis Spinal stenosis of lumbar region Pulmonary embolism Nasal vestibulitis Nasal septal deviation Amyloidosis Interstitial fibrosis present on biopsy of kidney Low back pain Osteoporosis History of diabetic neuropathy Surgical History Status post replacement of left shoulder joint History of bone marrow biopsy Status post biopsy of kidney History of cataract surgery History of tonsillectomy History of adenoidectomy History of colonoscopy History of total shoulder replacement History of total knee replacement History of total hip arthroplasty History of bunionectomy History of cholecystectomy History of appendectomy History of hysterectomy Family History Mother Depression Scoliosis Cancer CHF (congestive heart failure) Father Depression Lung cancer Cancer Grandmother Breast cancer Asthma Grandfather (Maternal) Diabetes Grandmother (Paternal) Breast cancer Other Hearing loss Denies family history of Ovarian cancer Prostate cancer Myocardial infarction Colorectal cancer Social History Smoking Status: Former smoker Tobacco Type: Cigarettes Age Started Using Tobacco: 14; Age Quit Using Tobacco: 39; packs per day: 2; Second Hand Exposure: No; Do You Dip or Chew Tobacco: No; Hx Alcohol Use: Yes (h/o alcohol abuse; in remission x 35 yrs) Alcohol type Comment: no alcohol intake presently Alcohol Intake Frequency Comment: From [id number] : 1/5th liquor per day Hx Substance Use: No Preferred Language: Gibraltarian Communication Ability: Effective Assistant Manager/Embalmer Required: No Beliefs That Will Affect Care: Methodist Methodist Beliefs: Gnosticist horacio. marital status: / Current Living Situation: Alone Current Living Situation Comment: alone current occupational status: retired current occupation: retired How many Children do You have: 1 Feels Safe at Home: Yes Seatbelt Use: always Assistive Devices: Walker Allergies Allergies Allergy/AdvReac Type Severity Reaction Status Date / Time exenatide Allergy Unknown GI UPSET Verified 11/15/24 13:49 ibuprofen Allergy Unknown GI UPSET Verified 11/15/24 13:49 mirtazapine Allergy Unknown MOUTH/FACIAL Verified 11/15/24 13:49 SWELLING oxycodone Allergy Unknown GI UPSET Verified 11/15/24 13:49 AND IRRITATION phenol Allergy Unknown GI UPSET Verified 11/15/24 13:49 Sulfa (Sulfonamide Allergy Unknown PT DOESN'T Verified 11/15/24 13:49 Antibiotics) REMEMBER REACTION - MOTHER TOLD PT acetaminophen [From Percocet] AdvReac Severe Verified 11/15/24 13:49 amoxicillin [From Augmentin] AdvReac Intermediate Diarrhea Verified 11/15/24 13:49 clavulanic acid AdvReac Intermediate Diarrhea Verified 11/15/24 13:49 [From Augmentin] gabapentin AdvReac Verified 11/15/24 13:49 prednisone AdvReac Verified 11/15/24 13:49 Home Meds Home Medications Medication Instructions Recorded Confirmed acetaminophen 650 mg 650 - 1,300 mg PO Q12H PRN Pain 12/21/18 11/15/24 tablet,extended release (Tylenol Arthritis Pain) cholecalciferol (vitamin D3) 25 1,000 unit PO QAM 11/02/19 11/15/24 mcg (1,000 unit) capsule (Vitamin D3) latanoprost 0.005 % eye drops 1 drops ophthalmic (eye) HS 12/27/19 11/15/24 ascorbic acid (vitamin C) 500 mg 500 mg PO QAM 05/03/20 11/15/24 tablet blood-glucose transmitter (Dexcom 04/06/21 11/15/24 G6 Transmitter device) hydrocortisone 2.5 % topical 1 applic topical BID PRN Skin 07/23/23 11/15/24 ointment Irritation insulin glargine 100 unit/mL (3 4 unit subcut HS 11/05/24 11/15/24 mL) subcutaneous pen (Lantus Solostar U-100 Insulin) insulin lispro 100 unit/mL See Rx Instructions .Route .COMPLEX 11/05/24 11/15/24 subcutaneous pen (Humalog KwikPen (U-100) Insulin) semaglutide 0.25 mg or 0.5 mg (2 1 mg subcut .weekly 11/05/24 11/15/24 mg/3 mL) subcutaneous pen injector (Ozempic) Previous Rx's Medication Instructions Recorded multivitamin (Daily Multi-Vitamin 1 tab PO DAILY #30 tabs 09/14/20 tablet) blood-glucose meter (FreeStyle #1 ea 04/16/21 Lite Meter kit) blood-glucose sensor (Dexcom G6 #3 ea 05/07/21 Sensor device) lancets 28 gauge (FreeStyle #100 ea 06/12/22 Lancets) FreeStyle Lite Strips (blood sugar #500 ea 05/29/23 diagnostic) loratadine 10 mg tablet 10 mg PO DAILY #90 tabs 07/04/23 apixaban 2.5 mg tablet 2.5 mg PO BID #180 tabs 10/13/23 nystatin 100,000 unit/gram topical 1 applic topical DAILY PRN rash 12/19/23 powder #30 grams azelastine 137 mcg (0.1 %) nasal 1 spray intranasal BID #30 mL 07/23/24 spray empagliflozin 10 mg tablet 10 mg PO DAILY #90 tabs 07/23/24 scopolamine base 1 mg over 3 days 1 patch transdermal Q3D PRN nausea 07/23/24 transdermal patch and vomiting #4 ea amlodipine 5 mg tablet 5 mg PO DAILY #90 tabs 09/28/24 levothyroxine 88 mcg tablet 88 mcg PO QAM #90 tabs 09/28/24 rosuvastatin 10 mg tablet 10 mg PO HS #90 tabs 09/28/24 menthol 0.44 %-zinc oxide 20.6 % 1 applic topical QID PRN skin 11/02/24 topical ointment (Calmoseptine) irritation #113 grams Results & Data (ED) Vital Signs Vital Signs - 24 hr 11/15/24 14:35 11/15/24 17:11 11/15/24 17:14 Temperature 36.6 C Temperature Source Temporal Artery Scan Pulse Rate 71 76 Pulse Rate [Apical] 83 Respiratory Rate 18 22 Respiratory Effort / Characteristics Non-Labored Spontaneous Non-Labored Spontaneous Respiratory Depth Normal Normal Respiratory Pattern Regular Blood Pressure 124/79 Blood Pressure [Right Arm] 111/71 Blood Pressure Mean 94 Blood Pressure Mean [Right Arm] 84 Blood Pressure Position [Right Arm] Pulse Oximetry 95 96 Oxygen Delivery Method Room Air Room Air Sepsis Recent Fever Within 48 Hours Yes Sepsis New/Unexplained Change in Mental Status N/A Sepsis Action Taken by Nursing No Action Required 11/15/24 18:00 11/15/24 19:00 Temperature 36.7 C Temperature Source Oral Pulse Rate 80 Pulse Rate [Apical] 91 H Respiratory Rate 17 18 Respiratory Effort / Characteristics Non-Labored Spontaneous Respiratory Depth Normal Respiratory Pattern Regular Blood Pressure 156/78 H Blood Pressure [Right Arm] 135/59 L Blood Pressure Mean 92 Blood Pressure Mean [Right Arm] 84 Blood Pressure Position [Right Arm] Semi-fowlers Pulse Oximetry 96 98 Oxygen Delivery Method Room Air Room Air Sepsis Recent Fever Within 48 Hours Sepsis New/Unexplained Change in Mental Status Sepsis Action Taken by Nursing Laboratory Data 11/15/24 14:53 11/15/24 14:53 Lab Results 11/15/24 11/15/24 Range/Units 14:53 17:05 WBC 8.17 (4.8-10.8) K/ul RBC 4.08 L (4.20-5.40) M/uL Hgb 12.3 (12.0-16.0) g/dl Hct 36.6 L (37.0-47.0) % MCV 89.7 (80.0-100.0) fL MCH 30.1 (25.0-34.0) pg MCHC 33.6 (32.0-36.0) g/dL RDW Std Deviation 46.9 H (36.4-46.3) fL RDW Coeff of Iban 14.3 (11.5-14.5) % Plt Count 509 H (130-400) K/uL MPV 8.8 L (9.4-12.4) fL Immature Gran % (Auto) 0.2 % Neut % (Auto) 57.5 % Lymph % (Auto) 24.5 % [place] % (Auto) 9.3 % Eos % (Auto) 6.9 % Baso % (Auto) 1.6 % Neut # (Auto) 4.70 (1.40-6.50) K/uL Lymph # (Auto) 2.00 (1.20-3.40) K/uL [place] # (Auto) 0.76 H (0.11-0.59) K/uL Eos # (Auto) 0.56 H (0.00-0.50) K/uL Baso # (Auto) 0.13 (0.00-0.20) K/uL Immature Gran # (Auto) 0.02 (0.01-0.20) K/uL Sodium 135 L (136-145) mmol/L Potassium 3.7 (3.5-5.1) mmol/L Chloride 103 (98-107) mmol/L Carbon Dioxide 24 (21-32) mmol/L Anion Gap 8 (3-11) BUN 45 H (6-23) mg/dl Creatinine 1.62 H (0.6-1.2) mg/dl Est Cr Clr Drug Dosing Not Reportable eGFR 31.53 BUN/Creatinine Ratio 27.8 H (10-20) Glucose 182 H (70-99(Fasting)) mg/dl Calcium 10.1 (8.6-10.3) mg/dl Magnesium 2.3 (1.7-2.4) mg/dl Total Bilirubin 0.5 (0.2-1.0) mg/dl AST 23 (13-39) U/L ALT 28 (7-52) U/L Alkaline Phosphatase 41 (34-104) U/L B-Natriuretic Peptide 8 (0-100) pg/ml Total Protein 7.0 (6.0-8.3) gm/dl Albumin 4.1 (3.4-5.0) gm/dl Globulin 2.9 (2.5-4.0) gm/dl Albumin/Globulin Ratio 1.4 (0.9-2) Lipase 26 (11-82) U/L Procalcitonin 0.17 (0-0.5) ng/ml TSH 1.557 (0.300-4.500) uIu/ml Urine Color Yellow Urine Appearance Clear (Clear) Urine pH 5.0 (4.5-7.5) Ur Specific [place] 1.023 (1.000-1.030) Urine Protein Negative (Negative) Urine Glucose (UA) 3+ H (Negative) Urine Ketones Negative (Negative) Urine Blood Negative (Negative) Urine Nitrite Negative (Negative) Urine Bilirubin Negative (Negative) Urine Urobilinogen Negative (Negative) Ur Leukocyte Esterase Negative (Negative) Adenovirus (PCR) Not Detected (NotDetected) B. pertussis DNA (PCR) Not Detected (NotDetected) B.parapertussis DNA PCR Not Detected (NotDetected) C. pneumoniae DNA (PCR) Not Detected (NotDetected) Coronavirus OC43 (PCR) Not Detected (NotDetected) Coronavirus HKU1 (PCR) Not Detected (NotDetected) Coronavirus 229E (PCR) Not Detected (NotDetected) SARS-CoV-2 (PCR) Not Detected (NotDetected) Coronavirus NL63 (PCR) Not Detected (NotDetected) Human Metapneumovir PCR Not Detected (NotDetected) Influenza Type A (PCR) Not Detected (NotDetected) Influenza Type B (PCR) Not Detected (NotDetected) M. pneumoniae (PCR) Not Detected (NotDetected) Parainfluenza 1 (PCR) Not Detected (NotDetected) Parainfluenza 2 (PCR) Not Detected (NotDetected) Parainfluenza 3 (PCR) Not Detected (NotDetected) Parainfluenza 4 (PCR) Not Detected (NotDetected) RSV (PCR) Not Detected (NotDetected) Entero/Rhino (PCR) Not Detected (NotDetected) Administered Medications Discontinued Medications Sodium Chloride (Nss) 1,000 mls @ 999 mls/hr IV .Q1H1M ONE Stop: 11/15/24 16:01 Last Infusion: 11/15/24 18:52 Dose: Infused Documented By: Admin: 11/15/24 15:31 Dose: 999 mls/hr Documented By: TINA Ondansetron HCl (Ondansetron Inj 2 Mg/Ml 2 Ml Vial) 4 mg IV NOW STA Stop: 11/15/24 15:03 Last Admin: 11/15/24 15:31 Dose: 4 mg Documented By: TINA Imaging Data Radiologist's Impression: Chest X-Ray 11/15/24 17:31 EXAM: Radiograph of the Chest 1 View INDICATION: Weakness TECHNIQUE: Frontal view of the chest. COMPARISON: 06/12/2022 FINDINGS: Lungs and pleural spaces: No consolidation or pulmonary edema. No pleural effusion or pneumothorax. Heart: Stable prominent cardiac shadow accentuated by technique. Mediastinum: Normal contour. Bones/joints: There are now bilateral shoulder arthroplasties. Visualized components well-seated. Soft tissues: No abnormality noted. No radiopaque foreign body noted. Vasculature: Stable mild ectatic aorta. Upper abdomen: No abnormality noted. IMPRESSION: No acute cardiopulmonary disease. ACT 112: N/A Electronically signed by Annabelle Gaitan 11-15-2024 6:16 PM Discharge Plan Visit Data Chief Complaint: Referred by Doctor Stated Complaint: REF BY DOC, INFECTION ED Provider: Candace Ashley Discharge Problem: Generalized weakness, Ambulatory dysfunction Forms Stand Alone Forms: [email or web address] [email or web address] Prescriptions Prescriptions: No Action multivitamin [Daily Multi-Vitamin] Tablet 1 tab PO DAILY Qty: 30 0RF (DME) blood-glucose meter [FreeStyle Lite Meter] Kit See Rx Instructions .Route Qty: 1 0RF Rx Instructions: TEST THREE TIMES DAILY (DME) Dexcom G6 Sensor Device See Rx Instructions .Route Qty: 3 5RF Rx Instructions: As directed (DME) FreeStyle Lite Strips Strip See Rx Instructions .Route Qty: 500 3RF Rx Instructions: TEST UP TO FIVE TIMES DAILY TO CONTROL FLUCTUATING BLOOD SUGARS loratadine 10 mg tablet 10 mg PO DAILY Qty: 90 3RF apixaban 2.5 mg tablet 2.5 mg PO BID Qty: 180 3RF nystatin 100,000 unit/gram powder 1 applic topical DAILY PRN (Reason: rash) Qty: 30 1RF Rx Instructions: Apply under abdominal folds as a 2-week course of topical creams to prevent recurrence of rash amlodipine 5 mg tablet 5 mg PO DAILY Qty: 90 3RF levothyroxine 88 mcg tablet 88 mcg PO QAM Qty: 90 3RF rosuvastatin 10 mg tablet 10 mg PO HS Qty: 90 3RF menthol-zinc oxide [Calmoseptine] 0.44-20.6 % ointment 1 applic topical QID PRN (Reason: skin irritation) Qty: 113 0RF insulin lispro [Humalog KwikPen Insulin] 100 unit/mL insulin pen See Rx Instructions .ROUTE .COMPLEX Dose Instruction: INJECT 11 UNITS THREE TIMES A DAY ALONG WITH SLIDING SCALE NEEDED UP TO 55 UNITS PER DAY Rx Instructions: Check blood sugars 3 times daily prior to each meal, if reading is below 148 no Humalog is needed, if reading is 148 give 3 units if reading is 180 give 5 units. Ozempic 0.25 mg or 0.5 mg (2 mg/3 mL) pen injector 1 mg subcut .weekly insulin glargine [Lantus Solostar U-100 Insulin] 100 unit/mL (3 mL) insulin pen 4 unit SQ HS Rx Instructions: 4 units subcu inj at HS (DME) Dexcom G6 Transmitter Device See Rx Instructions .Route Rx Instructions: As directed ascorbic acid (vitamin C) 500 mg tablet 500 mg PO QAM latanoprost 0.005 % drops 1 drops OP HS Rx Instructions: both eyes (DME) lancets [FreeStyle Lancets] 28 gauge misc See Rx Instructions .Route Qty: 100 3RF Rx Instructions: TEST THREE TIMES DAILY hydrocortisone 2.5 % ointment 1 applic topical BID PRN (Reason: Skin Irritation) Rx Instructions: Apply twice daily under abdominal folds for 2 weeks. scopolamine base 1 mg over 3 days patch 3 day 1 patch transdermal Q3D PRN (Reason: nausea and vomiting) Qty: 4 3RF azelastine 137 mcg (0.1 %) spray,non-aerosol 1 spray intranasal BID Qty: 30 3RF empagliflozin 10 mg tablet 10 mg PO DAILY Qty: 90 3RF cholecalciferol (vitamin D3) [Vitamin D3] 25 mcg (1,000 unit) Capsule 1,000 unit PO QAM acetaminophen [Tylenol Arthritis Pain] 650 mg Tablet Extended Release 650 - 1,300 mg PO Q12H PRN (Reason: Pain) Referrals Referrals: Rani Figueroa MD [Primary Care Provider] -
[2024-11-15 18:14] LABS: Thyroid Stimulating Hormone 1.557 uIu/ml (0.300-4.500)
[2024-11-15 18:15] LABS: Adenovirus PCR Not Detected (NotDetected); Bordetella parapertussis PCR Not Detected (NotDetected); Bordetella pertussis PCR Not Detected (NotDetected); Chlamydia pneumoniae PCR Not Detected (NotDetected); Coronavirus 229E PCR Not Detected (NotDetected); Coronavirus CoV-2 (COVID19)PCR Not Detected (NotDetected); Coronavirus HKU1 PCR Not Detected (NotDetected); Coronavirus NL63 PCR Not Detected (NotDetected); Coronavirus OC43PCR Not Detected (NotDetected); Human Metapneumovirus PCR Not Detected (NotDetected); Influenza A PCR Not Detected (NotDetected); Influenza B PCR Not Detected (NotDetected); Mycoplasma pneumoniae PCR Not Detected (NotDetected); Parainfluenza Virus 1 PCR Not Detected (NotDetected); Parainfluenza Virus 2 PCR Not Detected (NotDetected); Parainfluenza Virus 3 PCR Not Detected (NotDetected); Parainfluenza Virus 4 PCR Not Detected (NotDetected); Respiratory Syncytial VirusPCR Not Detected (NotDetected); Rhinovirus/Enterovirus PCR Not Detected (NotDetected)
--- NOTE | 2024-11-15 18:17 | XRay Report ---
EXAM: Radiograph of the Chest 1 View INDICATION: Weakness TECHNIQUE: Frontal view of the chest. COMPARISON: 06/12/2022 FINDINGS: Lungs and pleural spaces: No consolidation or pulmonary edema. No pleural effusion or pneumothorax. Heart: Stable prominent cardiac shadow accentuated by technique. Mediastinum: Normal contour. Bones/joints: There are now bilateral shoulder arthroplasties. Visualized components well-seated. Soft tissues: No abnormality noted. No radiopaque foreign body noted. Vasculature: Stable mild ectatic aorta. Upper abdomen: No abnormality noted. IMPRESSION: No acute cardiopulmonary disease. ACT 112: N/A Electronically signed by Annabelle Gaitan 11-15-2024 6:16 PM
--- NOTE | 2024-11-15 19:18 | History & Physical Report ---
Date of Service November 15, 2024 Assessment & Plan (1) Generalized weakness: (2) Ambulatory dysfunction: (3) Bartholin's gland abscess: (4) Constipation: (5) Bilateral leg edema: (6) Type 2 diabetes mellitus with chronic kidney disease: Plan Patient is an 84-year-old female with a past medical history of stage IV CKD, type II DM, history of PE, hyperlipidemia, hypertension, anemia. Patient had Bartholin abscess drainage at urgent care 10/29 and has undergone treatment with Keflex, Augmentin (did not tolerate), clindamycin, and Flagyl. She still has 1 more day left of the ciprofloxacin and Flagyl. Since the infection started a couple weeks ago patient has been lethargic and weak. She lives at home alone and feels unsafe to return home by herself. She is set up to live at [facility] within the next 2 weeks and is in the process of selling her house and under immense stress. She is being admitted for ambulatory dysfunction to have PT/OT evals. #weakness/Ambulatory dysfunction biofire and CXR negative UA negative for infection, 3+ glucose present TSH WNL magnesium stable 2.3 Mild hypokalemia, K+ 3.7 - will order 30 mEq p.o. KCl PT/OT consulted fall and aspiration precautions mild dehydration with decreased PO intake - 1L NSS bolus in ED, additional 1L NSS at 80ml/hr overnight Hx of iron deficiency anemia, Hgb 12.3 (baseline) - iron panel, b12, folate with AM labs patient to be moving to [facility] within the next 2 weeks #Bartholin abscess s/p I&D 10/29 at urgent care Completed course of Keflex Currently on Flagyl 500 Mg twice daily and clindamycin 300 Mg 4 times daily, to be completed 11/15; last doses ordered on admission External exam on admission reveals infection improved Nonseptic on admission, VSS, afebrile, leukocytosis resolved WBC 8.17 cultures 10/29 grew Anaerococcus vaginalis and bacteroides thetaiotamicron - no sensitives Continue warm compresses as needed follow blood cultures #constipation AP ct 11/10 showed moderate retained stool, no bowel inflammation or obstruction low concern for obstruction on admission, suspect 2/2 decreased ambulation and decreased p.o. intake scheduled Colace and Miralax prn #LE edema suspect 2/2 decreased ambulation/ venous insufficiency BNP 8 TEDs ordered #T2DM Controlled on Jardiance, insulin, and semaglutide (injections on Friday, received 11/15) at home; hold Jardiance and semaglutide Most recent A1C 7.3 in Jul 2024 UA revealed 3+ glucose present continue home insulin glargine - pt reports 8U HS however will keep at previous 4U with tight diet control during hospitalization loose SSI - CF 30, defer CR Chronic stable diagnoses: CKD IV - Cr 1.62 on admission (baseline 1.4-1.5), avoid nephrotoxic agents and promote oral hydration Hx PEcontinue Eliquis HLDcontinue rosuvastatin Hypothyroidismcontinue levothyroxine, TSH WNL on admission Glaucomacontinue eyedrops HTNcontinue amlodipine VTE ppx: continue home Eliquis, teds Diet: T2DM Dispo: med/surg Admission and Anticipated Discharge Date Admission Date: 11/15/24 History of Present Illness Chief Complaint: referred by Primary Care Provider: Rani Figueroa MD 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 Patient had Bartholin abscess drainage at urgent care 10/29 and has undergone treatment with Keflex, Augmentin (did not tolerate), clindamycin, and Flagyl. She still has 1 more day left of the ciprofloxacin and Flagyl. Since the infection started a couple weeks ago patient has been lethargic and weak. She lives at home alone and feels unsafe to return home by herself. She is set up to live at [facility] assisted living within the next 2 weeks and is in the process of selling her house and under immense stress. She is being admitted for ambulatory dysfunction to have PT/OT evals. Patient seen at bedside. She stated for the past few weeks she has been lethargic and weak and does not feel like herself. She feels as though her abscess is much improved after the I&D and antibiotic course. She still has 1 dose left of clindamycin and to left of the Flagyl. She stated about a week ago that she had 1 day of nausea and vomiting of bilious fluid that has since resolved. She does have some residual nausea that is relieved with Zofran. Patient stated she has not had a bowel movement in several days, could not quantify how many days, however denies feeling constipated, bloated, or having abdominal pain. She thinks it is because she has not been eating much for the past few days and has had a decrease in activity. She is stating that she has bilateral lower extremity edema. She also has had decreased urination for the past 24 hours but thinks that it is due to dehydration, she urinated after receiving 1L NSS bolus in ED. She typically uses a walker at baseline with a chair and ambulates well, however for the past 3 weeks has had difficulty getting around. She endorses chills but denies any fever. She denies chest pain, shortness of breath, dizziness, lightheadedness. She was a former smoker and quit drinking alcohol approximately 38 years ago. She lives at home alone but has a friend and son that check in on her. She is to go to [facility] in approximately 2 weeks and she has been very stressed at home as she is trying to sell her house. She stated she has been in close contact with her clinical systems educator who recommended she stay at 0.5 Mg semaglutide due to her acute illness. She did get her dose this morning. She is due for her evening medications, ordered on admission. She wishes to be DNR/DNI. Patient discussed concern for needing IV antibiotics that she has a history of sepsis. Discussed that infection is improving, white count is stable, VSS, no immediate need for IV antibiotics however will monitor blood cultures. Allergies Allergy/AdvReac Type Severity Reaction Status Date / Time exenatide Allergy Unknown GI UPSET Verified 11/15/24 13:49 ibuprofen Allergy Unknown GI UPSET Verified 11/15/24 13:49 mirtazapine Allergy Unknown MOUTH/FACIAL Verified 11/15/24 13:49 SWELLING oxycodone Allergy Unknown GI UPSET Verified 11/15/24 13:49 AND IRRITATION phenol Allergy Unknown GI UPSET Verified 11/15/24 13:49 Sulfa (Sulfonamide Allergy Unknown PT DOESN'T Verified 11/15/24 13:49 Antibiotics) REMEMBER REACTION - MOTHER TOLD PT acetaminophen [From Percocet] AdvReac Severe Verified 11/15/24 13:49 amoxicillin [From Augmentin] AdvReac Intermediate Diarrhea Verified 11/15/24 13:49 clavulanic acid AdvReac Intermediate Diarrhea Verified 11/15/24 13:49 [From Augmentin] gabapentin AdvReac Verified 11/15/24 13:49 prednisone AdvReac Verified 11/15/24 13:49 Home Medications Medication Instructions Recorded Confirmed Type acetaminophen 650 mg 650 - 1,300 mg PO Q12H PRN Pain 12/21/18 11/15/24 History tablet,extended release (Tylenol Arthritis Pain) cholecalciferol (vitamin D3) 25 1,000 unit PO QAM 11/02/19 11/15/24 History mcg (1,000 unit) capsule (Vitamin D3) latanoprost 0.005 % eye drops 1 drops ophthalmic (eye) HS 12/27/19 11/15/24 History ascorbic acid (vitamin C) 500 mg 500 mg PO QAM 05/03/20 11/15/24 History tablet multivitamin (Daily Multi-Vitamin 1 tab PO DAILY #30 tabs 09/14/20 11/15/24 Rx tablet) blood-glucose transmitter (Dexcom 04/06/21 11/15/24 History G6 Transmitter device) blood-glucose meter (FreeStyle #1 ea 04/16/21 11/15/24 Rx Lite Meter kit) blood-glucose sensor (Dexcom G6 #3 ea 05/07/21 11/15/24 Rx Sensor device) lancets 28 gauge (FreeStyle #100 ea 06/12/22 11/15/24 Rx Lancets) FreeStyle Lite Strips (blood sugar #500 ea 05/29/23 11/15/24 Rx diagnostic) hydrocortisone 2.5 % topical 1 applic topical BID PRN Skin 07/23/23 11/15/24 History ointment Irritation apixaban 2.5 mg tablet 2.5 mg PO BID #180 tabs 10/13/23 11/15/24 Rx nystatin 100,000 unit/gram topical 1 applic topical DAILY PRN rash 12/19/23 11/15/24 Rx powder #30 grams empagliflozin 10 mg tablet 10 mg PO DAILY #90 tabs 07/23/24 11/15/24 Rx amlodipine 5 mg tablet 5 mg PO DAILY #90 tabs 09/28/24 11/15/24 Rx levothyroxine 88 mcg tablet 88 mcg PO QAM #90 tabs 09/28/24 11/15/24 Rx rosuvastatin 10 mg tablet 10 mg PO HS #90 tabs 09/28/24 11/15/24 Rx insulin glargine 100 unit/mL (3 8 unit subcut HS 11/05/24 11/15/24 History mL) subcutaneous pen (Lantus Solostar U-100 Insulin) insulin lispro 100 unit/mL See Rx Instructions .Route .COMPLEX 11/05/24 11/15/24 History subcutaneous pen (Humalog KwikPen (U-100) Insulin) semaglutide 0.25 mg or 0.5 mg (2 1 mg subcut .weekly 11/05/24 11/15/24 History mg/3 mL) subcutaneous pen injector (Ozempic) azelastine 137 mcg (0.1 %) nasal 1 spray intranasal BID PRN 11/15/24 11/15/24 History spray congestion clindamycin HCl 300 mg capsule 300 mg PO 4XD 11/15/24 11/15/24 History Past Med/Surg History Problem List (Updated 11/15/24 @ 20:53 by Nicki Rae PA-C) Bilateral leg edema Constipation Bartholin's gland abscess Ambulatory dysfunction (Acute) Generalized weakness (Acute) Gastroenteritis (Acute) Type 2 diabetes mellitus with chronic kidney disease Type 2 diabetes mellitus with obesity MGUS (monoclonal gammopathy of unknown significance) Vertigo Lumbar radicular pain Chronic cerebral ischemia Depression with anxiety Mild cognitive impairment Diabetic polyneuropathy Sensory ataxia Major depression PTSD (post-traumatic stress disorder) Gait instability Disequilibrium History of pulmonary embolism Interstitial lung disease Type 2 diabetes mellitus with neurologic complication, 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 SOB (shortness of breath) on exertion (Chronic) Chronic anticoagulation Controlled type 2 diabetes mellitus, with long-term current use of insulin Chronic kidney disease, stage IV (severe) Metabolic syndrome Obesity Hypothyroidism (Chronic) Anxiety and depression (Chronic) Dyslipidemia (Chronic) Allergic rhinitis due to allergen HTN (hypertension) controlled, stable per pt Balance problem Degenerative disc disease, lumbar Glaucoma Anemia (Acute) Chronic and stable- Hgb in 11 range since Oct 2019 (06/25/22)-had iron infusions x 3; 1 per week since 05/2022 follows w/ [facility] heme/onc Medical History History of rib fracture (~02/15/22) History of alcohol use disorder On anticoagulant therapy History of anesthesia reaction Ataxia Lumbar spondylosis Spinal stenosis of lumbar region Pulmonary embolism Nasal vestibulitis Nasal septal deviation Amyloidosis Interstitial fibrosis present on biopsy of kidney Low back pain Osteoporosis History of diabetic neuropathy Surgical History Status post replacement of left shoulder joint History of bone marrow biopsy Status post biopsy of kidney History of cataract surgery History of tonsillectomy History of adenoidectomy History of colonoscopy History of total shoulder replacement History of total knee replacement History of total hip arthroplasty History of bunionectomy History of cholecystectomy History of appendectomy History of hysterectomy Family History Mother Depression Scoliosis Cancer CHF (congestive heart failure) Father Depression Lung cancer Cancer Grandmother Breast cancer Asthma Grandfather (Maternal) Diabetes Grandmother (Paternal) Breast cancer Other Hearing loss Denies family history of Ovarian cancer Prostate cancer Myocardial infarction Colorectal cancer Social History Smoking Status: Former smoker Tobacco Type: Cigarettes Age Started Using Tobacco: 14; Age Quit Using Tobacco: 39; packs per day: 2; Second Hand Exposure: No; Do You Dip or Chew Tobacco: No; Hx Alcohol Use: No Hx Substance Use: No Preferred Language: Slovenian Communication Ability: Effective Lumber Stacker Required: No Beliefs That Will Affect Care: None marital status: / Current Living Situation: Alone Current Living Situation Comment: moving to assisted living soon current occupational status: retired current occupation: retired How many Children do You have: 1 Other Information That Helps Us Care for You: No Feels Safe at Home: Yes Safety Concerns: Feels Safe At This Time Seatbelt Use: always Assistive Devices: Glasses and Walker Assistive Devices Comment: walker or cane when going out Review of Systems Review of Systems: See HPI Physical Exam Physical Exam: The patient is awake, alert and oriented 3, well developed and well nourished, normocephalic and atraumatic, in no acute distress. Non-toxic appearing. Shivering on exam. HEENT- EOMI, mucous membranes dry. Hearing grossly intact. Heart-normal S1 and S2. No murmurs, rubs or gallops. Lungs-clear bilaterally, no respiratory distress, no accessory muscle use. Abdomen-normal bowel sounds and soft. No ascites noted. Non-tender. Extremities- no clubbing, cyanosis. +1 pitting edema BL LE. Rheumatologic-normal range of motion. Psychiatric- Anxious affect. Genitourinary: External exam completed with nursing at bedside. Right sided cyst without erythema, tenderness, or drainage. Does not appear infectious on admission. Healing well. Results & Data Results & Data Vital Signs (Past 12 Hours) Vital Signs Temp Pulse Pulse Resp BP BP Pulse Ox 11/15/24 19:00 36.7 C 91 H 18 135/59 L 98 11/15/24 18:00 80 17 156/78 H 96 11/15/24 17:14 83 22 111/71 96 11/15/24 17:11 76 11/15/24 14:35 36.6 C 71 18 124/79 95 O2 Del Method 11/15/24 19:00 Room Air 11/15/24 18:00 Room Air 11/15/24 17:14 Room Air 11/15/24 17:11 11/15/24 14:35 Room Air Laboratory Results Reviewed CBC, CMP, Pro-Kilo, bio fire, UA, troponin, mag, TSH Diagnostic Findings reviewed CXR Medications Administered ED1L NSS bolus and Zofran 4 Mg IV ECG Additional Comments: NSR rate 86 QTc 421 Code Status & VTE Plan Code Status DNR/DNI VTE Prophylaxis Plan VTE Prophylaxis will be ordered: Yes Supervising Physician Co-Signing Physician Notes Attending addendum: I have physically seen this patient, have supervised the CAROL's activities, and agree with the H&P unless as otherwise noted. Assessment and Plan: The patient is a 84-year-old female with past medical history eluding stage IV CKD, diabetes mellitus type 2, history of pulmonary embolism, hyperlipidemia, hypertension, and anemia. She underwent a fourth splints abscess drainage and urgent care on 10/29/2024, follow-up treatment Keflex, then Augmentin, which was then changed to clindamycin and Flagyl due to intolerance. She reports having 1 more day left of attics. She presented to the emergency department due to concerns regarding persistent generalized weakness and lethargy, and feeling unsafe at home and inability to take care of himself at this time. [facility], incident present process of selling her house and is under significant stress. [facility] for assessment for ambulatory dysfunction, inability to care for self at home at this time, and PT/OT evaluations. #Ambulatory dysfunction/progressive weakness/inability to care for self and home- Symptoms are at least in part aggravated by recent stress of I&D of Bartholin's abscess, and then persistent antibiotics post. No significant abnormality on physical examination BioFire respiratory testing negative Chest x-ray negative UA negative for infection Consult PT/OT Status post 1 L normal saline bolus in the ED Continue IV fluid rehydration with 1 L normal saline 80 mL/h Bartholin's abscess- Status post I&D Complete antibiotics clindamycin and Flagyl as noted with 1 day treatment remaining Lower extremity edema- Secondary to decreased mobility and ambulatory dysfunction TEDS/support stockings as ordered Chronic medical conditions: Diabetes mellitus-holding Jardiance, semaglutide. Continuing glargine as noted sliding scale CKD stage IV-creatinine 1.6 to, slightly worse than baseline, repeat after oral hydration History of pulmonary embolism-continue Eliquis Hyperlipidemia-continue rosuvastatin Hypothyroidism-continue levothyroxine Glaucoma-continue routine eyedrops Hypertension-continue amlodipine with hold parameters remaining orders and notations as noted PG Care Time/CCT Total # of Minutes Spent Total Time Spent with Patient: Total time spent is greater than 50% in coordination of care (as documented) at patient's floor/unit and/or counseling patient: Coding Level of Care Code 70294 INT INP/OBS CARE 3/75MIN Diagnoses Generalized weakness R53.1 Ambulatory dysfunction R26.2 Bartholin's gland abscess N75.1 Constipation K59.00 Bilateral leg edema R60.0 Type 2 diabetes mellitus with chronic kidney disease E11.22
[2024-11-15] MEDS: POTASSIUM CHLORIDE 10 MEQ TABCR PO STA (19:56)
[2024-11-15] MEDS: CLINDAMYCIN HCL 150 MG CAP PO ONE (20:53)
[2024-11-15] MEDS: metroNIDAZOLE 500 MG TAB PO STA (20:53)
[2024-11-15] MEDS: ACETAMINOPHEN 325 MG TAB PO PRN (20:54)
[2024-11-15] MEDS: ONDANSETRON INJ 2 MG/ML 2 ML VIAL IV PRN (22:38)
[2024-11-15] MEDS ORDERED: NON-FORMULARY MEDICATION (Insulin Lispro [Humalog Kwikpen Insulin] 100 unit/mL insulin pen SCH (22:56)
[2024-11-15] MEDS ORDERED: GLUCOSE 40% GEL 15 GM TUBE PO PRN (22:56)
[2024-11-15] MEDS ORDERED: DEXTROSE 50% 50 ML SYRINGE IV PRN (22:56)
[2024-11-15] MEDS ORDERED: CARBOHYDRATES FOR HYPOGLYCEMIA PO PRN (22:56)
[2024-11-15] MEDS ORDERED: GLUCOSE 10 TAB/TUBE PO PRN (22:56)
[2024-11-15] MEDS ORDERED: MELATONIN 3 MG TAB PO PRN (22:56)
[2024-11-15] MEDS ORDERED: GLUCAGON FOR INJ 1 MG VIAL SQ PRN (22:56)
[2024-11-16] MEDS: DOCUSATE SODIUM 100 MG CAP PO SCH (00:54)
[2024-11-16] MEDS: APIXABAN 2.5 MG TAB PO SCH (00:54)
[2024-11-16] MEDS: ROSUVASTATIN CALCIUM 10 MG TAB PO SCH (00:54)
[2024-11-16] MEDS: LANTUS PER UNIT CHARGE SQ SCH (00:56)
[2024-11-16] MEDS: LATANOPROST 0.005% OP SOLN 2.5 ML BTL OP SCH (01:02)
[2024-11-16] MEDS: SODIUM CHLORIDE 0.9% 1,000 ML IV SCH (01:04)
[2024-11-16] MEDS: CLINDAMYCIN HCL 150 MG CAP PO ONE (04:43)
[2024-11-16] MEDS: LEVOTHYROXINE SODIUM 88 MCG TABLET PO SCH (04:43)
[2024-11-16 06:12] LABS: Basophils # (auto) 0.11 K/uL (0.00-0.20); Basophils % (auto) 1.2 %; Eosinophils # (auto) 0.56 K/uL (0.00-0.50); Eosinophils % (auto) 6.3 %; Hematocrit (blood only) 34.1 % (37.0-47.0); Hemoglobin 11.3 g/dl (12.0-16.0); Immature Granulocytes # (auto) 0.03 K/uL (0.01-0.20); Immature Granulocytes % (auto) 0.3 %; Lymphocytes # (auto) 2.31 K/uL (1.20-3.40); Lymphocytes % (auto) 26.1 %; Mean Corpuscular Hemoglobin 29.9 pg (25.0-34.0); Mean Corpuscular Hgb Conc 33.1 g/dL (32.0-36.0); Mean Corpuscular Volume 90.2 fL (80.0-100.0); Mean Platelet Volume 8.6 fL (9.4-12.4); Monocytes # (auto) 0.81 K/uL (0.11-0.59); Monocytes % (auto) 9.2 %; Neutrophils # (auto) 5.03 K/uL (1.40-6.50); Neutrophils % (auto) 56.9 %; Platelet Count 437 K/uL (130-400); RDW Coefficient of Variation 14.5 % (11.5-14.5); Red Blood Count 3.78 M/uL (4.20-5.40); White Blood Count 8.85 K/ul (4.8-10.8)
[2024-11-16 06:36] LABS: BUN Creatinine Ratio 24.7 (10-20); Calcium 9.2 mg/dl (8.6-10.3); Creatinine Clr Calc Pharmacy 25.9 ml/min; Magnesium 2.1 mg/dl (1.7-2.4)
[2024-11-16 06:56] LABS: Folate (Folic Acid),Ser orPlas > 22.30 ng/ml (>5.38)
[2024-11-16 06:57] LABS: Vitamin B12 623 pg/ml (180-914)
[2024-11-16] MEDS: INSULIN ASPART PER UNIT CHARGE SC SCH (07:54)
[2024-11-16] MEDS: LORATADINE 10 MG TAB PO SCH (08:02)
[2024-11-16] MEDS: amLODIPine BESYLATE 5 MG TAB PO SCH (08:04)
--- NOTE | 2024-11-16 12:03 | Hospitalist Progress Note ---
Date of Service November 16, 2024 Assessment & Plan (1) Generalized weakness: (2) Ambulatory dysfunction: (3) Bartholin's gland abscess: (4) Constipation: (5) Bilateral leg edema: (6) Type 2 diabetes mellitus with chronic kidney disease: Plan Patient is an 84-year-old female with a past medical history of stage IV CKD, type II DM, history of PE, hyperlipidemia, hypertension, anemia. Patient had Bartholin abscess drainage at urgent care 10/29 and has undergone treatment with Keflex, Augmentin (did not tolerate), clindamycin, and Flagyl. She still has 1 more day left of the ciprofloxacin and Flagyl. Since the infection started a couple weeks ago patient has been lethargic and weak. She lives at home alone and feels unsafe to return home by herself. She is set up to live at [facility] within the next 2 weeks and is in the process of selling her house and under immense stress. She was admitted for ambulatory dysfunction to have PT/OT evals. #Weakness/Ambulatory dysfunction Workup widely unremarkable including negative BioFire, UA, CXR; TSH and electrolytes WNL Mild dehydration secondary to decreased PO intake - repleted with 2 L IV fluid on admission Iron study consistent with anemia of chronic disease, with low/normal iron, low TIBC and transferrin, normal transferrin % sat and ferritin Plans to move to [facility] within next 2 weeks PT/OT following #Bartholin abscess s/p I&D 10/29 at urgent care. Completed antibiotic treatment on 11/15 External exam on admission reveals infection improved Continue warm compresses as needed Blood cultures pending #Constipation CT A/P on 11/10 showed moderate retained stool, no bowel inflammation or obstruction Low concern for obstruction, suspect 2/2 decreased ambulation and decreased p.o. intake Scheduled Colace and Miralax prn #LE edema Suspect 2/2 decreased ambulation/ venous insufficiency BNP 8 Continue TEDs #T2DM Controlled on Jardiance, insulin, and semaglutide (injections on Friday, received 11/15) at home; hold Jardiance and semaglutide while inpatient Most recent A1C 7.3 in Jul 2024 UA revealed 3+ glucose present Continue home insulin glargine - pt reports 8U HS however will keep at previous 4U with tight diet control during hospitalization Loose SSI - CF 30, defer CR Chronic stable diagnoses: CKD IV - Cr 1.62 on admission (baseline 1.4-1.5), avoid nephrotoxic agents and promote oral hydration Hx PEcontinue Eliquis HLDcontinue rosuvastatin Hypothyroidismcontinue levothyroxine, TSH WNL on admission Glaucomacontinue eyedrops HTNcontinue amlodipine VTE ppx: continue home Elifranny Sae Dispo: Waiting to hear if [facility] accept patient early/with therapy or if she needs SNF rehab first. CM following Admission and Anticipated Discharge Date Admission Date: November 15, 2024 Supervising Physician Co-Signing Physician Notes chart reviewed, case d/w S Henry RODRIGUEZ. as above Subjective Patient seen and evaluated at bedside. She reports feeling "foggy," exhausted, and weak. She denies any focal complaints. She was tearful during our conversation, with anxiety regarding her recent weakness from prolonged antibiotic course and upcoming move to assisted living facility. Reassurance provided. She reports she worked with therapy earlier and did fairly well. She notes she is weaker than her baseline prior to her antibiotic course though, as she used to bike 5 miles daily and walk 1 mile on the treadmill 4-5 days per week. No additional complaints or concerns at this time. Physical Exam Physical Exam: General: No acute distress, nondiaphoretic, well-developed, well-nourished. Tearful and anxious. Cardiac: Regular rate and rhythm without murmurs gallops or rubs. Pulm: Clear to auscultation bilaterally without wheezes, rales or rhonchi. Normal respiratory effort. 97% on room air. Abdominal: Soft, nontender, nondistended. Bowel sounds present. Neuro: A&O x3. No focal neurological deficits. Results & Data Results & Data Vital Signs (Past 12 Hours) Vital Signs Temp Pulse Pulse Resp BP BP BP 11/16/24 07:30 99.0 F 78 18 149/73 H 11/16/24 00:42 98.4 F 85 18 114/71 11/16/24 00:03 86 30 H 124/65 Pulse Ox O2 Del Method 11/16/24 07:30 97 Room Air 11/16/24 00:42 95 Room Air 11/16/24 00:03 90 Laboratory Results Reviewed CBC with differential Reviewed CMP, chemistries Reviewed iron studies Reviewed UA Reviewed bio fire Diagnostic Findings Reviewed CXR PG Care Time/CCT Total # of Minutes Spent Total Time Spent with Patient: Total time spent is greater than 50% in coordination of care (as documented) at patient's floor/unit and/or counseling patient: Coding Level of Care Code 59497 SUB INP/OBS CARE 2/35MIN Diagnoses Generalized weakness R53.1 Ambulatory dysfunction R26.2 Bartholin's gland abscess N75.1 Constipation K59.00 Bilateral leg edema R60.0 Type 2 diabetes mellitus with chronic kidney disease E11.22
[2024-11-16] MEDS: COUGH DROP (SUGAR FREE) LOZ 24 LOZ/1 BOX BUCCAL PRN (20:55)
--- NOTE | 2024-11-16 22:18 | Electrocardiogram Report ---
Test Reason : Blood Pressure : */* mmHG Vent. Rate : 86 BPM Atrial Rate : 86 BPM P-R Int : 196 ms QRS Dur : 86 ms QT Int : 352 ms P-R-T Axes : 53 -28 49 degrees QTcB Int : 421 ms Normal sinus rhythm Normal ECG When compared with ECG of 10-Nov-2024 11:24, No significant change was found Confirmed by Mic Pearson ([id number]) on 11/16/2024 10:18:39 PM Referred By: Rani Figueroa Confirmed By: Mic Pearson
[2024-11-17] MEDS: ASCORBIC ACID 500 MG TAB PO SCH (09:23)
[2024-11-17] MEDS: CHOLECALCIFEROL 25 MCG (1000 UNITS) TAB PO SCH (09:23)
[2024-11-17] MEDS: MULTIVITAMIN TAB PO SCH (09:24)
--- NOTE | 2024-11-17 16:53 | Hospitalist Progress Note ---
Date of Service November 17, 2024 Assessment & Plan (1) Generalized weakness: (2) Ambulatory dysfunction: (3) Bartholin's gland abscess: (4) Constipation: (5) Bilateral leg edema: (6) Type 2 diabetes mellitus with chronic kidney disease: Plan Patient is an 84-year-old female with a past medical history of stage IV CKD, type II DM, history of PE, hyperlipidemia, hypertension, anemia. Patient had Bartholin abscess drainage at urgent care 10/29 and has undergone treatment with Keflex, Augmentin (did not tolerate), clindamycin, and Flagyl. She still has 1 more day left of the ciprofloxacin and Flagyl. Since the infection started a couple weeks ago patient has been lethargic and weak. She lives at home alone and feels unsafe to return home by herself. She is set up to live at [facility] within the next 2 weeks and is in the process of selling her house and under immense stress. She was admitted for ambulatory dysfunction to have PT/OT evals. #Weakness/Ambulatory dysfunction Workup widely unremarkable including negative BioFire, UA, CXR; TSH and electrolytes WNL Mild dehydration secondary to decreased PO intake - repleted with 2 L IV fluid on admission Iron study consistent with anemia of chronic disease, with low/normal iron, low TIBC and transferrin, normal transferrin % sat and ferritin Plans to move to [facility] within next 2 weeks. The [facility] is reviewing H vs SNF at [facility] - possibly can accept 11/18 PT/OT following #Bartholin abscess s/p I&D 10/29 at urgent care. Completed antibiotic treatment on 11/15 External exam on admission reveals infection improved Continue warm compresses as needed Blood cultures negative x 24 hours #Constipation CT A/P on 11/10 showed moderate retained stool, no bowel inflammation or obstruction Low concern for obstruction, suspect 2/2 decreased ambulation and decreased p.o. intake Scheduled Colace and Miralax prn. Mag citrate 296 mL PO x 1 on 11/17 #LE edema Suspect 2/2 decreased ambulation/ venous insufficiency BNP 8 Continue TEDs #T2DM Controlled on Jardiance, insulin, and semaglutide (injections on Friday, received 11/15) at home; hold Jardiance and semaglutide while inpatient Most recent A1C 7.3 in Jul 2024 UA revealed 3+ glucose present Continue home insulin glargine - pt reports 8U HS however will keep at previous 4U with tight diet control during hospitalization Loose SSI - CF 30, defer CR Chronic stable diagnoses: CKD IV - Cr 1.62 on admission (baseline 1.4-1.5), avoid nephrotoxic agents and promote oral hydration Hx PEcontinue Eliquis HLDcontinue rosuvastatin Hypothyroidismcontinue levothyroxine, TSH WNL on admission Glaucomacontinue eyedrops HTNcontinue amlodipine VTE ppx: continue home Sae Vega Dispo: Will either discharge to the [facility] or [facility], possibly 11/18 Ordered mag citrate Discussed discharge planning with case management Admission and Anticipated Discharge Date Admission Date: November 15, 2024 Supervising Physician Co-Signing Physician Notes chart reviewed, case d/w S Henry RODRIGUEZ. as above Subjective Patient seen and evaluated at bedside. She reports feeling significantly better today. She is much higher spirits today. She notes she walked to the halls and sat in the bedside chair for the majority of the day. She states that she is set up to go to the [facility] tomorrow, 11/18. Informed patient we will have to c onfirm the plan with case management. No additional complaints or concerns at this time. Physical Exam Physical Exam: General: No acute distress, nondiaphoretic, well-developed, well-nourished. Much higher spirits today. Cardiac: Regular rate and rhythm without murmurs gallops or rubs. Pulm: Clear to auscultation bilaterally without wheezes, rales or rhonchi. Normal respiratory effort. 97% on room air. Abdominal: Soft, nontender, nondistended. Bowel sounds present. Neuro: A&O x3. No focal neurological deficits. Results & Data Results & Data Vital Signs (Past 12 Hours) Vital Signs Temp Pulse Pulse Resp BP BP Pulse Ox 11/17/24 16:05 97.9 F 78 18 132/75 97 11/17/24 12:35 98.2 F 74 18 103/67 94 11/17/24 12:10 98.1 F 80 16 113/69 11/17/24 10:30 11/17/24 07:27 98.1 F 77 19 148/80 H 95 O2 Del Method 11/17/24 16:05 Room Air 11/17/24 12:35 Room Air 11/17/24 12:10 Room Air 11/17/24 10:30 Room Air 11/17/24 07:27 Room Air Laboratory Results Reviewed blood cultures PG Care Time/CCT Total # of Minutes Spent Total Time Spent with Patient: Total time spent is greater than 50% in coordination of care (as documented) at patient's floor/unit and/or counseling patient: Coding Level of Care Code 27427 SUB INP/OBS CARE 3/50MIN Diagnoses Generalized weakness R53.1 Ambulatory dysfunction R26.2 Bartholin's gland abscess N75.1 Constipation K59.00 Bilateral leg edema R60.0 Type 2 diabetes mellitus with chronic kidney disease E11.22
[2024-11-17] MEDS: MAGNESIUM CITRATE 296 ML/BTL PO STA (17:24)
[2024-11-17 21:28] VITALS: O2SAT 95
[2024-11-18] MEDS: POLYETHYLENE (MIRALAX) 17 GM PACK PO PRN (06:19)
[2024-11-18 08:12] VITALS: BP 110/69; PULSE 83; RESP 20; TEMP 98.6
[2024-11-18] MEDS: POLYETHYLENE (MIRALAX) 17 GM PACK PO STA (10:39)
--- NOTE | 2024-11-18 10:47 | Discharge Summary ---
Discharge Summary Date of Service November 18, 2024 Principal Dx & Hospital Course #1 = Principal Diagnosis (1) Generalized weakness: (2) Ambulatory dysfunction: (3) Bartholin's gland abscess: (4) Constipation: (5) Bilateral leg edema: (6) Type 2 diabetes mellitus with chronic kidney disease: Plan Patient is an 84-year-old female with a past medical history of stage IV CKD, type II DM, history of PE, hyperlipidemia, hypertension, anemia. Patient had Bartholin abscess drainage at urgent care 10/29 and has undergone treatment with Keflex, Augmentin (did not tolerate), clindamycin, and Flagyl. She still has 1 more day left of the ciprofloxacin and Flagyl. Since the infection started a couple weeks ago patient has been lethargic and weak. She lives at home alone and feels unsafe to return home by herself. She is set up to live at [facility] within the next 2 weeks and is in the process of selling her house and under immense stress. She was admitted for ambulatory dysfunction to have PT/OT evals. #Weakness/Ambulatory dysfunction Workup widely unremarkable including negative BioFire, UA, CXR; TSH and electrolytes WNL Mild dehydration secondary to decreased PO intake - repleted with 2 L IV fluid on admission Iron study consistent with anemia of chronic disease, with low/normal iron, low TIBC and transferrin, normal transferrin % sat and ferritin Plans to move to [facility] within next 2 weeks. PT/OT evaluated. Will complete acute rehab at [facility] prior to transition to [facility] #Bartholin abscess s/p I&D 10/29 at urgent care. Completed antibiotic treatment on 11/15 External exam on admission reveals infection improved Continue warm compresses as needed Blood cultures negative >48 hours #Constipation CT A/P on 11/10 showed moderate retained stool, no bowel inflammation or obstruction Low concern for obstruction, bowel sounds present, suspect 2/2 decreased ambulation and decreased p.o. intake Continue bowel regimen: Scheduled Colace 100mg BID, MiraLAX PRN, Dulcolax suppository PRN. Last BM 11/10/24 per patient #LE edema Suspect 2/2 decreased ambulation/ venous insufficiency BNP 8 Continue TEDs #T2DM Controlled on Jardiance, insulin, and semaglutide (injections on Friday, received 11/15) at home; held Jardiance and semaglutide while inpatient, resumed on discharge Most recent A1C 7.3 in Jul 2024 UA revealed 3+ glucose present Continue home insulin glargine Chronic stable diagnoses: CKD IV - Cr 1.62 on admission (baseline 1.4-1.5), avoid nephrotoxic agents and promote oral hydration Hx PEcontinue Eliquis HLDcontinue rosuvastatin Hypothyroidismcontinue levothyroxine, TSH WNL on admission Glaucomacontinue eyedrops HTNcontinue amlodipine VTE ppx: continue home ROSANNA [place] Dispo: Discharged to [facility] rehab 11/18, then patient will be transitioned to [facility] Monitor constipation, last reported BM 11/10/24. Abdomen soft, nontender, with normoactive bowel sounds on day of discharge. Continue bowel regimen. 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 Patient had Bartholin abscess drainage at urgent care 10/29 and has undergone treatment with Keflex, Augmentin (did not tolerate), clindamycin, and Flagyl. She still has 1 more day left of the ciprofloxacin and Flagyl. Since the infection started a couple weeks ago patient has been lethargic and weak. She lives at home alone and feels unsafe to return home by herself. She is set up to live at [facility] assisted living within the next 2 weeks and is in the process of selling her house and under immense stress. She is being admitted for ambulatory dysfunction to have PT/OT evals. Patient seen at bedside. She stated for the past few weeks she has been lethargic and weak and does not feel like herself. She feels as though her abscess is much improved after the I&D and antibiotic course. She still has 1 dose left of clindamycin and to left of the Flagyl. She stated about a week ago that she had 1 day of nausea and vomiting of bilious fluid that has since resolved. She does have some residual nausea that is relieved with Zofran. Patient stated she has not had a bowel movement in several days, could not quantify how many days, however denies feeling constipated, bloated, or having abdominal pain. She thinks it is because she has not been eating much for the past few days and has had a decrease in activity. She is stating that she has bilateral lower extremity edema. She also has had decreased urination for the past 24 hours but thinks that it is due to dehydration, she urinated after receiving 1L NSS bolus in ED. She typically uses a walker at baseline with a chair and ambulates well, however for the past 3 weeks has had difficulty getting around. She endorses chills but denies any fever. She denies chest pain, shortness of breath, dizziness, lightheadedness. She was a former smoker and quit drinking alcohol approximately 38 years ago. She lives at home alone but has a friend and son that check in on her. She is to go to [facility] living in approximately 2 weeks and she has been very stressed at home as she is trying to sell her house. She stated she has been in close contact with her outreach educator who recommended she stay at 0.5 Mg semaglutide due to her acute illness. She did get her dose this morning. She is due for her evening medications, ordered on admission. She wishes to be DNR/DNI. Patient discussed concern for needing IV antibiotics that she has a history of sepsis. Discussed that infection is improving, white count is stable, VSS, no immediate need for IV antibiotics however will monitor blood cultures. Discharge Exam General: No acute distress, nondiaphoretic, well-developed, well-nourished. Cardiac: Regular rate and rhythm without murmurs gallops or rubs. Pulm: Clear to auscultation bilaterally without wheezes, rales or rhonchi. Normal respiratory effort. 95% on room air. Abdominal: Soft, nontender, mildly distended. Normoactive bowel sounds present. Neuro: A&O x3. No focal neurological deficits. Discharge Plan Discharge Items Patient Disposition: Transfer Halfway Fac Reason For Visit: AMBULATORY DYSFUNCTION, WEAKNESS Discharge Diagnosis: Generalized weakness, ambulatory dysfunction, constipation Activity: Resume your previous activity Non-emergency contact: Primary Care Provider Call non-emergency contact if: you have any medication questions and your symptoms worsen Follow-up/Referrals: Rani Figueroa MD [Primary Care Provider] - (Follow-up in 1-2 weeks) Diet: Carb Consistent or DM2 Addtl Attending Provider Instructions: Amaris, You were admitted to the hospital due to generalized weakness. Your workup was unremarkable including negative respiratory panel, urinalysis, chest x-ray, thyroid hormone, and electrolytes. I suspect your weakness may have been exacerbated by a recent long course of antibiotics for your Bartholin abscess. Additionally, we have been working on your bowel regimen because of your constipation. You should continue this bowel regimen on discharge. You are being discharged to [facility] rehab and then will transition to [facility] when appropriate. Upon discharge from the hospital: * Continue a bowel regimen to treat/prevent constipation. Take Colace 100 mg twice daily. You can use MiraLAX 1 packet daily as needed as well. Finally, you can use Dulcolax suppositories if needed. * Continue your home medications as prescribed. * Recommend follow-up with your PCP in 1-2 weeks. It was a pleasure taking care of you while you were in the hospital! Pending Studies at Discharge: No Stand-Alone Forms: My [facility] Skilled Items Patient informed of condition?: Yes DNR: Yes Discharge Level of Care: Acute rehab Communicable Disease: No Discharge Prognosis: Stable Lines: None Urinary Catheter: No Medications and DC Order Prescriptions: New polyethylene glycol 3350 [Miralax] 17 gram Powder In Packet 17 g PO DAILY PRN (Reason: constipation) Qty: 14 0RF docusate sodium 100 mg Capsule 100 mg PO BID Qty: 14 0RF bisacodyl [Dulcolax (bisacodyl)] 10 mg suppository 10 mg NH DAILY PRN (Reason: constipation) Qty: 12 0RF Continued multivitamin [Daily Multi-Vitamin] Tablet 1 tab PO DAILY Qty: 30 0RF (DME) blood-glucose meter [FreeStyle Lite Meter] Kit See Rx Instructions .Route Qty: 1 0RF Rx Instructions: TEST THREE TIMES DAILY (DME) Dexcom G6 Sensor Device See Rx Instructions .Route Qty: 3 5RF Rx Instructions: As directed (DME) FreeStyle Lite Strips Strip See Rx Instructions .Route Qty: 500 3RF Rx Instructions: TEST UP TO FIVE TIMES DAILY TO CONTROL FLUCTUATING BLOOD SUGARS apixaban 2.5 mg tablet 2.5 mg PO BID Qty: 180 3RF nystatin 100,000 unit/gram powder 1 applic topical DAILY PRN (Reason: rash) Qty: 30 1RF Rx Instructions: Apply under abdominal folds as a 2-week course of topical creams to prevent recurrence of rash amlodipine 5 mg tablet 5 mg PO DAILY Qty: 90 3RF levothyroxine 88 mcg tablet 88 mcg PO QAM Qty: 90 3RF rosuvastatin 10 mg tablet 10 mg PO HS Qty: 90 3RF insulin lispro [Humalog KwikPen Insulin] 100 unit/mL insulin pen See Rx Instructions .ROUTE .COMPLEX Dose Instruction: INJECT 11 UNITS THREE TIMES A DAY ALONG WITH SLIDING SCALE NEEDED UP TO 55 UNITS PER DAY Rx Instructions: Check blood sugars 3 times daily prior to each meal, if reading is below 148 no Humalog is needed, if reading is 146 give 6 units if reading is 180 give 8 units. Ozempic 0.25 mg or 0.5 mg (2 mg/3 mL) pen injector 1 mg subcut .weekly insulin glargine [Lantus Solostar U-100 Insulin] 100 unit/mL (3 mL) insulin pen 8 unit SQ HS Rx Instructions: 4 units subcu inj at HS (DME) Dexcom G6 Transmitter Device See Rx Instructions .Route Rx Instructions: As directed ascorbic acid (vitamin C) 500 mg tablet 500 mg PO QAM latanoprost 0.005 % drops 1 drops OP HS Rx Instructions: both eyes (DME) lancets [FreeStyle Lancets] 28 gauge misc See Rx Instructions .Route Qty: 100 3RF Rx Instructions: TEST THREE TIMES DAILY hydrocortisone 2.5 % ointment 1 applic topical BID PRN (Reason: Skin Irritation) Rx Instructions: Apply twice daily under abdominal folds for 2 weeks. empagliflozin 10 mg tablet 10 mg PO DAILY Qty: 90 3RF cholecalciferol (vitamin D3) [Vitamin D3] 25 mcg (1,000 unit) Capsule 1,000 unit PO QAM acetaminophen [Tylenol Arthritis Pain] 650 mg Tablet Extended Release 650 - 1,300 mg PO Q12H PRN (Reason: Pain) azelastine 137 mcg (0.1 %) spray,non-aerosol 1 spray intranasal BID PRN (Reason: congestion) Discontinued clindamycin HCl 300 mg capsule 300 mg PO 4XD Discharge Orders: Discharge Order (Routine); Ordered 11/18/24 Ordered By: Consuelo Figueroa Admission Data Admit Date/Time: 11/15/24 20:17 Attending Provider: Emeka Ryan Admit Provider: Bry Sorto Primary Care Provider: Rani Figueroa Other Providers: Bry Sorto; Dayanara Alexander at [place] Other Interventions: Discharge Summary Assessment (RN) Last Done: 11/18/24 10:54 Hospital Stay Data Consultations 11/15/24 19:09 ED Decision to Admit Stat Pending Results Patient Have Any Pending Studies at Discharge: No Discharge Instructions Given to Patient (Per Discharging Provider) Don Glez were admitted to the hospital due to generalized weakness. Your workup was unremarkable including negative respiratory panel, urinalysis, chest x-ray, thyroid hormone, and electrolytes. I suspect your weakness may have been exacerbated by a recent long course of antibiotics for your Bartholin abscess. Additionally, we have been working on your bowel regimen because of your constipation. You should continue this bowel regimen on discharge. You are being discharged to [facility] rehab and then will transition to [facility] when appropriate. Upon discharge from the hospital: * Continue a bowel regimen to treat/prevent constipation. Take Colace 100 mg twice daily. You can use MiraLAX 1 packet daily as needed as well. Finally, you can use Dulcolax suppositories if needed. * Continue your home medications as prescribed. * Recommend follow-up with your PCP in 1-2 weeks. It was a pleasure taking care of you while you were in the hospital! Supervising Physician Co-Signing Physician Notes chart reviewed, case d/w S Henry RODRIGUEZ. due to other clinical responsibilities i was unable to see her prior to transfer. as above Total Time Total Time Spent Total Time Spent (In Minutes): Greater than 30 minutes spent completing this discharge process including direct patient care, medication reconciliation, documentation, review of labs and images, and coordination of care. Coding Level of Care Code 62688 INP/OBS DISCH >30 MIN Diagnoses Generalized weakness R53.1 Ambulatory dysfunction R26.2 Bartholin's gland abscess N75.1 Constipation K59.00 Bilateral leg edema R60.0 Type 2 diabetes mellitus with chronic kidney disease E11.22
== END 2024-11-18 11:51 | DRG 641 ==
LOC: SUATTDRO → ED 14:33 → EDINP 20:17 → SUATTDRO 20:17 → 3N 11-16 00:10